=== PATIENT | male | born 1945 | race Caucasian/White ===

== ENCOUNTER 2017-03-01 18:47 | Emergency (ER) | payer MEDICARE, OTHER ==
[2017-03-01] MEDS ORDERED: Albuterol/Ipratropium NEB.SOL* Albuterol 2.5 MG/Ipratropium 0.5 MG 3 ML INH ONE ×2 (18:55→21:31)
[2017-03-01] MEDS ORDERED: cefTRIAXone(*) 1 GM in NS 0.9% 50 ML* 50 ML IVPB ONE (19:17)
[2017-03-01] MEDS ORDERED: Azithromycin IV(*) 500 MG in NS 0.9% 250 ML* 250 ML IVPB ONE (19:18)
--- NOTE | 2017-03-01 19:44 | RAD ---
Indication: Shortness of breath. Single frontal view of the chest performed at 1923 hours was reviewed. Comparison is made with previous exam dated October 10, 2007. Cardiomegaly is noted. There is suggestion of a retrocardiac density which may represent left lower lobe infiltrate. There is poor inspiratory effort. IMPRESSION: SUGGESTION OF LEFT LOWER LOBE INFILTRATE.
[2017-03-01 19:48] LABS: ABS Basophils 0.1 10^3/ul (0-0.2); ABS Eosinophils 0.1 10^3/ul (0-0.6); ABS Lymphocytes 1.4 10^3/ul (1.0-4.8); ABS Monocytes 0.9 10^3/ul (0-0.8); ABS Neutrophils 8.3 10^3/ul (1.5-7.7); ABS Nucleated RBC 0 10^3/ul; Eosinophil % 1.1 % (0-6); Hematocrit 39 % (42-52); Hemoglobin 13.4 g/dl (14.0-18.0); Lymphocyte % 13.3 % (25-47); Mean Corpuscular HGB Conc 34 g/dl (31-36); Mean Corpuscular Hemoglobin 34 pg (27-31); Mean Corpuscular Volume 99 fL (80-94); Mean Platelet Volume 10 um3 (7.4-10.4); Nucleated Red Blood Cells % 0; Platelet Count 158 10^3/ul (150-450); Red Blood Count 3.97 10^6/ul (4.0-5.4); Red Cell Distribution Width 13 % (10.5-15); White Blood Count 10.8 10^3/ul (3.5-10.8)
[2017-03-01 19:57] LABS: INR 1.11 (0.77-1.02)
[2017-03-01 20:02] LABS: EGFR Non-African American 25.8 (>60)
[2017-03-01] MEDS ORDERED: NS 0.9% 1000 ML* 2,000 ML IV ONE (23:02)
--- NOTE | 2017-03-01 23:05 | ED ---
Fede Gonzales Natalie, scribed for Cortes Gonzalez MD on 03/01/17 at 1917 . Shortness of Breath - HPI Summary HPI Summary: The pt is a 72 y/o BIBA to the ED c/o SOB onset for days but worsening today. Per EMS, the patients called the ambulance to bring him s/p falling. His initial O2 saturation was 81% on room air, but EMS brought it up to 95%. His blood sugar is reported as 181, and he is nondiabetic. The pain is aggravated by nothing and is alleviated by nothing. The patient has treated the pain with nothing [employer] DES[employer]. He was drinking wine before coming to the ED. Pt additionally c/o nonproductive cough, edema in bilateral LE, and swollen stomach. Pt denies blood in emesis, fevers, and chills. The pt has hx of peripheral neuropathy. He does not have hx of COPD or emphysema. He visited [facility] this past weekend with results normal for him concerning swollen stomach. - History of Current Complaint Chief Complaint: EDShortnessOfBreath Hx Obtained From: Patient, EMS Onset/Duration: Gradual Onset, Lasting Days - started about a month ago, Still Present, Worse Since - today Timing: Constant Current Severity: Moderate Aggrevating Factors: Nothing Alleviating Factors: Nothing Associated Signs & Symptoms: Cough (Nonproductive), Edema - in bilateral LE, stomach - Allergy/Home Medications Allergies/Adverse Reactions: Allergies Allergy/AdvReac Type Severity Reaction Status Date / Time Doxycycline Allergy Rash Verified 01/01/14 09:51 PMH/Surg Hx/FS Hx/Imm Hx Previously Healthy: No Endocrine/Hematology History: Denies: Hx Diabetes, Hx Thyroid Disease Cardiovascular History: Denies: Hx Hypertension Respiratory History: Denies: Hx Asthma, Hx Chronic Obstructive Pulmonary Disease (COPD) GI History: Denies: Hx Ulcer Musculoskeletal History: Reports: Hx Rheumatoid Arthritis Comment Only: Hx Osteoporosis - ? - Surgical History Surgery Procedure, Year, and Place: tonsillectomy at age 4 Infectious Disease History: No Infectious Disease History: Denies: Hx Clostridium Difficile, Hx Hepatitis, Hx Human Immunodeficiency Virus (HIV), Hx of Known/Suspected MRSA, Hx Shingles, Hx Tuberculosis, Hx Known/ Suspected VRE, Hx Known/Suspected VRSA, History Other Infectious Disease, Traveled Outside the [place] in Last 30 Days - Family History Known Family History: Negative: Cardiac Disease, Hypertension, Diabetes - Social History Alcohol Use: Occasionally Substance Use Type: Reports: None Smoking Status (MU): Never Smoked Tobacco Review of Systems Negative: Fever, Chills Positive: Shortness Of Breath, Cough - nonproductive Negative: Vomiting Positive: Edema - bilateral LE, stomach All Other Systems Reviewed And Are Negative: Yes Physical Exam Triage Information Reviewed: Yes Vital Signs On Initial Exam: Initial Vitals Temp Pulse Resp BP Pulse Ox 98.2 F 103 18 121/74 88 03/01/17 18:48 03/01/17 18:48 03/01/17 18:48 03/01/17 18:48 03/01/17 18:48 Vital Signs Reviewed: Yes Appearance: Positive: Pain Distress - mild respiratory distress Skin: Positive: Warm, Skin Color Reflects Adequate Perfusion, Dry Respiratory/Lung Sounds: Positive: Rhonchi, Wheezes - bilateral Cardiovascular: Positive: Tachycardia Abdomen Description: Positive: Other: - large abd Bowel Sounds: Positive: Present Musculoskeletal: Positive: Normal, Strength/ROM Intact Neurological: Positive: Normal, Sensory/Motor Intact, Alert, Oriented to Person Place, Time Psychiatric: Positive: Affect/Mood Appropriate Diagnostics - Vital Signs Vital Signs Temp Pulse Resp BP Pulse Ox 03/01/17 18:48 98.2 F 103 18 121/74 88 - Laboratory Lab Results: Lab Results 03/01/17 03/01/17 03/01/17 Range/Units 19:32 19:32 19:32 WBC (3.5-10.8) 10^3/ul RBC (4.0-5.4) 10^6/ul Hgb (14.0-18.0) g/dl Hct (42-52) % MCV (80-94) fL MCH (27-31) pg MCHC (31-36) g/dl RDW (10.5-15) % Plt Count (150-450) 10^3/ul MPV (7.4-10.4) um3 Neut % (Auto) (38-83) % Lymph % (Auto) (25-47) % Furn[place] % (Auto) (1-9) % Eos % (Auto) (0-6) % Baso % (Auto) (0-2) % Absolute Neuts (auto) (1.5-7.7) 10^3/ul Absolute Lymphs (auto) (1.0-4.8) 10^3/ul Absolute Monos (auto) (0-0.8) 10^3/ul Absolute Eos (auto) (0-0.6) 10^3/ul Absolute Basos (auto) (0-0.2) 10^3/ul Absolute Nucleated RBC 10^3/ul Nucleated RBC % INR (Anticoag Therapy) 1.11 H (0.77-1.02) APTT 30.2 (26.0-36.3) seconds D-Dimer, Quantitative > 1050 H (Less Than 230) ng/mL Sodium 130 L (133-145) mmol/L Potassium 4.4 (3.5-5.0) mmol/L Chloride 98 L (101-111) mmol/L Carbon Dioxide 20 L (22-32) mmol/L Anion Gap 12 H (2-11) mmol/L BUN 45 H (6-24) mg/dL Creatinine 2.46 H (0.67-1.17) mg/dL Est GFR ( Amer) 33.2 (>60) Est GFR (Non-Af Amer) 25.8 (>60) BUN/Creatinine Ratio 18.3 (8-20) Glucose 122 H (70-100) mg/dL Lactic Acid (0.5-2.0) mmol/L Calcium 8.6 (8.6-10.3) mg/dL Magnesium 2.4 (1.9-2.7) mg/dL Total Bilirubin 1.50 H (0.2-1.0) mg/dL AST 56 H (13-39) U/L ALT 14 (7-52) U/L Alkaline Phosphatase 192 H (34-104) U/L Ammonia 47 (16-53) mol/L Total Creatine Kinase 95 (10-223) U/L CK-MB (CK-2) 4.8 (0.6-6.3) ng/mL Troponin I 0.01 (<0.04) ng/mL C-Reactive Protein 54.49 H (< 5.00) mg/L B-Natriuretic Peptide 59 ( - 100) pg/mL Total Protein 7.0 (6.4-8.9) g/dL Albumin 2.9 L (3.2-5.2) g/dL Globulin 4.1 H (2-4) g/dL Albumin/Globulin Ratio 0.7 L (1-3) Lipase 49 (11.0-82.0) U/L TSH 1.51 (0.34-5.60) mcIU/mL Salicylates < 2.50 (<30) mg/dL Acetaminophen < 15 mcg/mL Serum Alcohol 31 H (<10) mg/dL 03/01/17 03/01/17 Range/Units 19:32 19:32 WBC 10.8 (3.5-10.8) 10^3/ul RBC 3.97 L (4.0-5.4) 10^6/ul Hgb 13.4 L (14.0-18.0) g/dl Hct 39 L (42-52) % MCV 99 H (80-94) fL MCH 34 H (27-31) pg MCHC 34 (31-36) g/dl RDW 13 (10.5-15) % Plt Count 158 (150-450) 10^3/ul MPV 10 (7.4-10.4) um3 Neut % (Auto) 76.5 (38-83) % Lymph % (Auto) 13.3 L (25-47) % Furn[place] % (Auto) 8.0 (1-9) % Eos % (Auto) 1.1 (0-6) % Baso % (Auto) 1.1 (0-2) % Absolute Neuts (auto) 8.3 H (1.5-7.7) 10^3/ul Absolute Lymphs (auto) 1.4 (1.0-4.8) 10^3/ul Absolute Monos (auto) 0.9 H (0-0.8) 10^3/ul Absolute Eos (auto) 0.1 (0-0.6) 10^3/ul Absolute Basos (auto) 0.1 (0-0.2) 10^3/ul Absolute Nucleated RBC 0 10^3/ul Nucleated RBC % 0 INR (Anticoag Therapy) (0.77-1.02) APTT (26.0-36.3) seconds D-Dimer, Quantitative (Less Than 230) ng/mL Sodium (133-145) mmol/L Potassium (3.5-5.0) mmol/L Chloride (101-111) mmol/L Carbon Dioxide (22-32) mmol/L Anion Gap (2-11) mmol/L BUN (6-24) mg/dL Creatinine (0.67-1.17) mg/dL Est GFR ( Amer) (>60) Est GFR (Non-Af Amer) (>60) BUN/Creatinine Ratio (8-20) Glucose (70-100) mg/dL Lactic Acid 3.4 H* (0.5-2.0) mmol/L Calcium (8.6-10.3) mg/dL Magnesium (1.9-2.7) mg/dL Total Bilirubin (0.2-1.0) mg/dL AST (13-39) U/L ALT (7-52) U/L Alkaline Phosphatase (34-104) U/L Ammonia (16-53) mol/L Total Creatine Kinase (10-223) U/L CK-MB (CK-2) (0.6-6.3) ng/mL Troponin I (<0.04) ng/mL C-Reactive Protein (< 5.00) mg/L B-Natriuretic Peptide ( - 100) pg/mL Total Protein (6.4-8.9) g/dL Albumin (3.2-5.2) g/dL Globulin (2-4) g/dL Albumin/Globulin Ratio (1-3) Lipase (11.0-82.0) U/L TSH (0.34-5.60) mcIU/mL Salicylates (<30) mg/dL Acetaminophen mcg/mL Serum Alcohol (<10) mg/dL Result Diagrams: 03/01/17 19:32 03/01/17 19:32 Lab Statement: Any lab studies that have been ordered have been reviewed, and results considered in the medical decision making process. - Radiology CXR Xray Interpretation: Positive (See Comments) - Suggestion of left lower lobe infiltrate. ED physician has reviewed this report. - EKG 19:07 Cardiac Rate: NL EKG Rhythm: Sinus Rhythm - 94 BPM EKG Interpretation: Diffuse low voltage. No ectopy. Course/Dx - Course Course Of Treatment: BP is normal. Allergies noted. Medicatiosn reviewed. NS BOLUS LIMITED TO 2L NS DUE TO ASCITIES. HOSPITALIST CONSULTED FOR ADMISSION; WITH THE PATIENT'S NEW ONSET ASCITES, WITHOUT GI COVERAGE AT [facility] WILL NEED TO TRANSFER TO A FACILITY WITH GI COVERAGE. TRANSFER TO [facility], DR OSBORN ACCEPTING. - Diagnoses Provider Diagnoses: Pneumonia, Hypoxia, Ascites, Renal insufficiency - Critical Care Time Critical Care Time: 30-74 min Discharge - Discharge Plan Condition: Stable Disposition: TRANS HIGHER LVL OF CARE FAC Referrals: Lawson Sutherland MD [Primary Care Provider] - The documentation as recorded by the Fede beckwith Natalie accurately reflects the service I personally performed and the decisions made by me, Cortes Gonzalez MD.
[2017-03-01] MEDS ORDERED: Morphine INJ* 4 MG/ML 1 ML CARPUJECT IV ONE (23:55)
[2017-03-01] MEDS ORDERED: Ondansetron INJ* 2 MG/ML VIAL IV ONE (23:55)
[2017-03-01] MEDS ORDERED: Ondansetron INJ* 2 MG/ML VIAL ONE (23:56)
[2017-03-01] MEDS ORDERED: Morphine INJ* 2 MG/ML 1 ML SYRINGE (TWO MG - NEW SYRINGE VERSION) ONE (23:56)
[2017-03-01] MEDS ORDERED: Morphine INJ* 2 MG/ML 1 ML SYRINGE (TWO MG - NEW SYRINGE VERSION) IV ONE (23:58)
[2017-03-02 00:10] VITALS: BP 117/69
--- NOTE | 2017-03-02 04:52 | CONS ---
CC: Dr. Sutherland; Dr. Gonzalez * CONSULTATION REPORT: DATE OF CONSULT: 03/01/17 PRIMARY CARE PROVIDER: Dr. Sutherland. REQUESTING PHYSICIAN FOR CONSULT: Dr. Gonzalez. ATTENDING PHYSICIAN WHILE IN THE HOSPITAL: Rodney Faria MD (report dictated by Jimy Abernathy NP) REASON FOR MEDICAL CONSULT: Evaluation for admission. HISTORY OF PRESENT ILLNESS: Mr. rAt is a 72-year-old male patient. He says he has a history of AFib, diverticulosis, and a history of neuropathy who comes into the ER today. He says he has had a cough for the last month that has just not been getting any better. It is a nonproductive, now getting productive. He says he has been having difficulty with taking a deep breath. He has been more short of breath and he notices the abdomen has been getting much bigger and more distended and actually becoming painful. He says he denied any nausea or vomiting. He says he has been having more lower leg swelling and edema and he has not had any fevers or chills, but he was concerned today. Actually, his had fallen, they called [facility] for his , but they were concerned, when [place] got there, they evaluated the patient for his cough and it was noted that he was hypoxic and at that point, he was brought into the hospital. He does state that he was hypoxic and seen in [place] 2 days ago and at that point, it was noted that his O2 saturations were 90. He was concerned, came in today, and was evaluated and he was found to have pneumonia, to be in acute renal failure and we were asked to evaluate for admission. PAST MEDICAL HISTORY: According to him significant for AFib, diverticulosis and history of neuropathy. PAST SURGICAL HISTORY: He has had tonsillectomy. He has had left knee arthroscopy. He has had colonoscopy. HOME MEDICATIONS: Include according to the old list: 1. Ambien 5 mg at bedtime. 2. Effexor 37.5 mg daily. 3. Triamcinolone cream one application topically b.i.d. 4. Lyrica 25 mg p.o. b.i.d. 5. Also, he does appear to have been prescribed diltiazem 180 mg tablets p.o. daily and he recently looks like was prescribed 2 days ago Augmentin. ALLERGIES TO MEDICATIONS: Include DOXYCYCLINE. FAMILY HISTORY: Father had a history of colon cancer. Mother had a history of lymphoma. SOCIAL HISTORY: He does not smoke. He does drink on a daily basis. He says he is drinking about half a bottle of wine a day. He is . His surrogate decision maker is his . REVIEW OF SYSTEMS: There is no documented fever. He does admit to having increasing swelling. He denies having any double vision. No ear discharge. There was some rhinorrhea. There was no sore throat. There was no thyroid enlargement. Denied having any chest pain. He does admit to having some shortness of breath. He does admit to having some abdominal pain, but no nausea , no vomiting. There was no frequency, no seizure, no loss of consciousness, no pruritus, and no skin ulcerations. Review of 14 systems completed, all others negative. PHYSICAL EXAM: Vital Signs: Blood pressure 121/74 with a pulse of 103, respirations were 18, his O2 sat was 88% on room air and is now 93% on 4 L, his temperature was 98.2. General: At this time, Mr. Art is a 72-year-old male patient, appears to be older than stated age. He is sitting in the ER stretcher. He does not appear to be in any acute distress. HEENT: Head is atraumatic, normocephalic. Eyes: EOMs intact. Sclerae anicteric. Neck: Supple. Throat: Oral mucosa appears to be dry. No oropharyngeal erythema. Heart: Sounds S1, S2. Regular rate and rhythm. No murmurs, rubs or gallops. Lungs: He had wheeze throughout, crackles on the left side, and equal diaphragmatic expansion. Abdomen: Protruded, distended. On the left lower quadrant, there was redness and warmth. He was tender as well and he had dull percussion as well. Extremities: He had +2 pitting edema bilaterally. He has 5/5 strength. Neurologic: He is awake, alert and oriented x3. No gross focal deficits. His skin was intact. DIAGNOSTIC STUDIES/LAB DATA: WBC 10.8, RBC 3.97, hemoglobin 13.4, hematocrit 39 , platelet count of 158, his INR was 1.11, PTT of 30.2, D-dimer of greater than 1050. Sodium 130, potassium 4.0, chloride 98, bicarb 20, BUN 45, creatinine 2.46 , glucose 122, lactic 3.4, calcium 8.6, mag was 2.4, total bilirubin 1.5, AST 56 , ALT 14, alk phos was 192, ammonia was 47, CK 95, CK-MB 4.8, troponin 0.01, CRP was 54, BNP 59, albumin of 2.9, TSH pending, lipase was 49. His toxicology is pending. He had a chest x-ray obtained today. Impression: My review it looks like an expiratory film, but there was possibility of what appears to be left lower lobe infiltrate. EKG today shows sinus rhythm with a rate of 94. No ST elevation or T-wave inversion. Old medical records were reviewed. ASSESSMENT AND PLAN: Mr. Art is a nice 72-year-old male patient with the history of ETOH abuse, in addition of this atrial fibrillation, diverticulitis, neuropathy, coming into the ER today with complaints of shortness of breath and wheezing, on evaluation was found to have pneumonia. We were asked to evaluate for admission. My recommendations at this point are: 1. The patient does appear to have massive ascites. I am concerned that he could have small bowel obstruction because of the tenderness and redness in the abdomen. He also does appear to have liver failure in early stage. His MELD score is right around 23. His INR is up little bit, his albumin as well. He has massive ascites. He does appear to have an elevated bili and slightly elevated AST and ALT. He says he has never formally been diagnosed with cirrhotic liver disease. I am concerned with his history of alcohol and he may have this and with his underlying pneumonia, he appears to have early signs of decompensation and I am concerned that he may go into hepatorenal syndrome with his creatinine being up, he does appear to be dehydrated. We have unfortunately no GI coverage and I feel the patient should be transferred to a center where there is GI coverage to help further evaluation and workup of this. I do recommend putting him on antibiotics Rocephin and azithromycin and treat pneumonia. Rocephin will treat SBP and I would recommend an ultrasound of the abdomen. The patient should have a GI consult and because there is no GI coverage, I recommend transfer and I discussed with Dr. Faria, he was in agreement at this point. 2. Atrial fibrillation. I continued his meds. 3. Diverticulosis, not an active issue. 4. Neuropathy. Continue his Lyrica. I did touch base with Dr. Gonzalez on recommendations for transfer of this patient to a tertiary care center where GI was available to help with further management of this patient. As I am concerned with the underlying pneumonia, he could go into full blown decompensated liver failure, which unfortunately we would not have GI backup. TIME SPENT: Time spent on the consult was approximately 60 minutes, greater than half the time was spent [id number] with the patient, obtaining history and physical, the other half time was spent going over the plan of care with the patient. I did discuss the plan of care with my attending Dr. Faria, he is in agreement. JIMY ABERNATHY, JOHNNIE [id number]/CPS #: [id number] JARAD
== END 2017-03-02 00:09 | disposition short-term general hospital (02) ==
LOC: ED 18:47
DX: J18.9 Pneumonia, unspecified organism (principal); R09.02 Hypoxemia; R18.8 Other ascites; N28.9 Disorder of kidney and ureter, unspecified
CPT/HCPCS: 36415; 71010; 80053; 80320; 80329; 82140; 82550; 82553; 83605; 83690; 83735; 83880; 84443; 84484; 85025; 85379; 85610; 85730; 86140; 87040; 93005; 94640; 96365; 96366; 96375; 99284; A9270-GY; G0480; J0456; J0696; J2270; J2405

== ENCOUNTER 2017-03-20 13:28 | Emergency (ER) | payer MEDICARE ==
[2017-03-20 15:10] LABS: INR 1.17 (0.77-1.02)
[2017-03-20 15:17] LABS: ABS Basophils 0.1 10^3/ul (0-0.2); ABS Eosinophils 0.7 10^3/ul (0-0.6); ABS Lymphocytes 1.9 10^3/ul (1.0-4.8); ABS Monocytes 0.9 10^3/ul (0-0.8); ABS Neutrophils 6.4 10^3/ul (1.5-7.7); ABS Nucleated RBC 0 10^3/ul; EGFR Non-African American 30.9 (>60); Hematocrit 37 % (42-52); Hemoglobin 12.6 g/dl (14.0-18.0); Lymphocyte % 18.8 % (25-47); Mean Corpuscular HGB Conc 34 g/dl (31-36); Mean Corpuscular Hemoglobin 33 pg (27-31); Mean Corpuscular Volume 96 fL (80-94); Mean Platelet Volume 9 um3 (7.4-10.4); Nucleated Red Blood Cells % 0; Platelet Count 253 10^3/ul (150-450); Red Blood Count 3.88 10^6/ul (4.0-5.4); Red Cell Distribution Width 13 % (10.5-15)
[2017-03-20 17:11] LABS: Urine Appearance Cloudy; Urine Blood 3+ (Negative); Urine Color Amber; Urine Ketones Negative (Negative); Urine Protein 1+(30 mg/dL) (Negative); Urine Specific Gravity 1.012 (1.010-1.030); Urine Urobilinogen Positive (Negative)
[2017-03-20 17:40] VITALS: BP 109/61
--- NOTE | 2017-03-21 10:07 | ED ---
Bruce Gonzales Angela, scribed for Dominic Choudhary MD on 03/20/17 at 1351 . Abdominal Pain/Male - HPI Summary HPI Summary: This pt is a 72 y/o male presenting [place] [facility] [place] from [facility] c/o abdominal distension and need for paracentesis. Pt reports that he is scheduled for this at [facility] tomorrow but wanted to come to [facility] [place] as it is much closer and wants to avoid the ambulance fee. He states "it doesn't really hurt" and has baseline pain from ascites. Pt just moved into [facility] on March 12, but before this he was living at home. Pt had his last tap on March 07, 2017. - History of Current Complaint Chief Complaint: EDGeneral Stated Complaint: ABD PAIN Time Seen by Provider: 03/20/17 13:36 Hx Obtained From: Patient Onset/Duration: Lasting Days, Still Present Timing: Lasting Days Severity Currently: Moderate Pain Intensity: 6 Pain Scale Used: 0-10 Numeric Location: Diffuse Radiates: No Aggravating Factor(s): Nothing Alleviating Factor(s): Nothing Associated Signs And Symptoms: Positive: Other - abdominal distension - Allergies/Home Medications Allergies/Adverse Reactions: Allergies Allergy/AdvReac Type Severity Reaction Status Date / Time Doxycycline Allergy Rash Verified 03/20/17 13:43 PMH/Surg Hx/FS Hx/Imm Hx Endocrine/Hematology History: Denies: Hx Diabetes, Hx Thyroid Disease Cardiovascular History: Reports: Hx Atrial Fibrillation, Hx Hypertension Respiratory History: Reports: Other Respiratory Problems/Disorders - Supraglottitis Denies: Hx Asthma, Hx Chronic Obstructive Pulmonary Disease (COPD) GI History: Reports: Hx Diverticulosis Denies: Hx Ulcer Musculoskeletal History: Reports: Hx Rheumatoid Arthritis Comment Only: Hx Osteoporosis - ? Neurological History: Reports: Hx Peripheral Neuropathy - Surgical History Surgery Procedure, Year, and Place: tonsillectomy at age 4 Infectious Disease History: No Infectious Disease History: Denies: Hx Clostridium Difficile, Hx Hepatitis, Hx Human Immunodeficiency Virus (HIV), Hx of Known/Suspected MRSA, Hx Shingles, Hx Tuberculosis, Hx Known/ Suspected VRE, Hx Known/Suspected VRSA, History Other Infectious Disease, Traveled Outside the [place] in Last 30 Days - Family History Known Family History: Negative: Cardiac Disease, Hypertension, Diabetes - Social History Alcohol Use: Occasionally Substance Use Type: Reports: None Smoking Status (MU): Never Smoked Tobacco Review of Systems Negative: Fever, Chills ENT: Negative Cardiovascular: Negative Gastrointestinal: Other - abdominal distension Positive: Abdominal Pain Musculoskeletal: Negative Skin: Negative Neurological: Negative All Other Systems Reviewed And Are Negative: Yes Physical Exam - Summary Physical Exam Summary: Appearance: The patient is well-nourished in no acute distress and in no acute pain. Skin: The skin is warm and dry and skin color reflects adequate perfusion. HEENT: The head is normocephalic and atraumatic. The pupils are equal and reactive. The conjunctivae are clear and without drainage. Scleral icterus. Nares are patent and without drainage. Mouth reveals moist mucous membranes and the throat is without erythema and exudate. The external ears are intact. The ear canals are patent and without drainage. The tympanic membranes are intact. Neck: the neck is supple with full range of motion and non-tender. There are no carotid bruits. There is no neck vein distension. Respiratory: Chest is non-tender. Lungs are clear to auscultation and breath sounds are symmetrical and equal. Cardiovascular: Heart is regular rate and rhythm. There is no murmur or rub auscultated. There is no peripheral edema and pulses are symmetrical and equal. Abdomen: The abdomen is soft and non-tender. There is abdominal distension. There are normal bowel sounds heard in all four quadrants and there is no organomegaly palpated. Musculoskeletal: There is no back tenderness noted. Extremities are non-tender with full range of motion. There is good capillary refill. There is no peripheral edema or calf tenderness elicited. Neurological: Patient is alert and oriented to person, place and time. The patient has symmetrical motor strength in all four extremities. Cranial nerves are grossly intact. Deep tendon reflexes are symmetrical and equal in all four extremities. Psychiatric: The patient has an appropriate affect and does not exhibit any anxiety or depression. Triage Information Reviewed: Yes Vital Signs On Initial Exam: Initial Vitals Temp Pulse Resp BP Pulse Ox 99.3 F 83 14 107/62 91 03/20/17 13:36 03/20/17 13:36 03/20/17 13:36 03/20/17 13:36 03/20/17 13:36 Vital Signs Reviewed: Yes - [place] Coma Scale Coma Scale Total: 15 Diagnostics - Vital Signs Vital Signs Temp Pulse Resp BP Pulse Ox 03/20/17 13:40 85 15 90 03/20/17 13:37 107/62 03/20/17 13:36 99.3 F 83 14 107/62 91 - Laboratory Lab Results: Lab Results 03/20/17 03/20/17 03/20/17 Range/Units 14:52 14:52 14:52 WBC 10.0 (3.5-10.8) 10^3/ul RBC 3.88 L (4.0-5.4) 10^6/ul Hgb 12.6 L (14.0-18.0) g/dl Hct 37 L (42-52) % MCV 96 H (80-94) fL MCH 33 H (27-31) pg MCHC 34 (31-36) g/dl RDW 13 (10.5-15) % Plt Count 253 (150-450) 10^3/ul MPV 9 (7.4-10.4) um3 Neut % (Auto) 64.2 (38-83) % Lymph % (Auto) 18.8 L (25-47) % Falls % (Auto) 9.2 H (1-9) % Eos % (Auto) 7.0 H (0-6) % Baso % (Auto) 0.8 (0-2) % Absolute Neuts (auto) 6.4 (1.5-7.7) 10^3/ul Absolute Lymphs (auto) 1.9 (1.0-4.8) 10^3/ul Absolute Monos (auto) 0.9 H (0-0.8) 10^3/ul Absolute Eos (auto) 0.7 H (0-0.6) 10^3/ul Absolute Basos (auto) 0.1 (0-0.2) 10^3/ul Absolute Nucleated RBC 0 10^3/ul Nucleated RBC % 0 INR (Anticoag Therapy) (0.77-1.02) Sodium 123 L (133-145) mmol/L Potassium 4.0 (3.5-5.0) mmol/L Chloride 90 L (101-111) mmol/L Carbon Dioxide 25 (22-32) mmol/L Anion Gap 8 (2-11) mmol/L BUN 26 H (6-24) mg/dL Creatinine 2.11 H (0.67-1.17) mg/dL Est GFR ( Amer) 39.7 (>60) Est GFR (Non-Af Amer) 30.9 (>60) BUN/Creatinine Ratio 12.3 (8-20) Glucose 128 H (70-100) mg/dL Lactic Acid (0.5-2.0) mmol/L Calcium 8.6 (8.6-10.3) mg/dL Magnesium 2.1 (1.9-2.7) mg/dL Total Bilirubin 1.50 H (0.2-1.0) mg/dL AST 61 H (13-39) U/L ALT 13 (7-52) U/L Alkaline Phosphatase 189 H (34-104) U/L Ammonia 67 H (16-53) mol/L C-Reactive Protein 26.20 H (< 5.00) mg/L Total Protein 6.4 (6.4-8.9) g/dL Albumin 2.7 L (3.2-5.2) g/dL Globulin 3.7 (2-4) g/dL Albumin/Globulin Ratio 0.7 L (1-3) Lipase 27 (11.0-82.0) U/L Urine Color Urine Appearance Urine pH (5-9) Ur Specific Horatio (1.010-1.030) Urine Protein (Negative) Urine Ketones (Negative) Urine Blood (Negative) Urine Nitrate (Negative) Urine Bilirubin (Negative) Urine Urobilinogen (Negative) Ur Leukocyte Esterase (Negative) Urine WBC (Auto) (Absent) Urine RBC (Auto) (Absent) Ur Squamous Epith Cells (Absent) Amorphous Crystals (Absent) Urine Bacteria (Absent) Hyaline Casts (Absent) Urine Glucose (Negative) 03/20/17 03/20/17 03/20/17 Range/Units 14:52 14:52 16:30 WBC (3.5-10.8) 10^3/ul RBC (4.0-5.4) 10^6/ul Hgb (14.0-18.0) g/dl Hct (42-52) % MCV (80-94) fL MCH (27-31) pg MCHC (31-36) g/dl RDW (10.5-15) % Plt Count (150-450) 10^3/ul MPV (7.4-10.4) um3 Neut % (Auto) (38-83) % Lymph % (Auto) (25-47) % Falls % (Auto) (1-9) % Eos % (Auto) (0-6) % Baso % (Auto) (0-2) % Absolute Neuts (auto) (1.5-7.7) 10^3/ul Absolute Lymphs (auto) (1.0-4.8) 10^3/ul Absolute Monos (auto) (0-0.8) 10^3/ul Absolute Eos (auto) (0-0.6) 10^3/ul Absolute Basos (auto) (0-0.2) 10^3/ul Absolute Nucleated RBC 10^3/ul Nucleated RBC % INR (Anticoag Therapy) 1.17 H (0.77-1.02) Sodium (133-145) mmol/L Potassium (3.5-5.0) mmol/L Chloride (101-111) mmol/L Carbon Dioxide (22-32) mmol/L Anion Gap (2-11) mmol/L BUN (6-24) mg/dL Creatinine (0.67-1.17) mg/dL Est GFR ( Amer) (>60) Est GFR (Non-Af Amer) (>60) BUN/Creatinine Ratio (8-20) Glucose (70-100) mg/dL Lactic Acid 1.8 (0.5-2.0) mmol/L Calcium (8.6-10.3) mg/dL Magnesium (1.9-2.7) mg/dL Total Bilirubin (0.2-1.0) mg/dL AST (13-39) U/L ALT (7-52) U/L Alkaline Phosphatase (34-104) U/L Ammonia (16-53) mol/L C-Reactive Protein (< 5.00) mg/L Total Protein (6.4-8.9) g/dL Albumin (3.2-5.2) g/dL Globulin (2-4) g/dL Albumin/Globulin Ratio (1-3) Lipase (11.0-82.0) U/L Urine Color Alee Urine Appearance Cloudy Urine pH 5.0 (5-9) Ur Specific Horatio 1.012 (1.010-1.030) Urine Protein 1+(30 mg/dl) H (Negative) Urine Ketones Negative (Negative) Urine Blood 3+ H (Negative) Urine Nitrate Negative (Negative) Urine Bilirubin Negative (Negative) Urine Urobilinogen Positive H (Negative) Ur Leukocyte Esterase Trace H (Negative) Urine WBC (Auto) 2+(11-20/hpf) H (Absent) Urine RBC (Auto) 3+(>10/hpf) H (Absent) Ur Squamous Epith Cells Present H (Absent) Amorphous Crystals Present H (Absent) Urine Bacteria Absent (Absent) Hyaline Casts Present H (Absent) Urine Glucose Negative (Negative) Result Diagrams: 03/20/17 14:52 03/20/17 14:52 Lab Statement: Any lab studies that have been ordered have been reviewed, and results considered in the medical decision making process. Abdominal Pain Fem Course/Dx - Course Course Of Treatment: Mr Kaelyn cm been getting a paracentesis about once a week at [facility] for cirrhotic ascites. He lives a [facility] and can't afford to go to [place] so he missed his last appointment and doesn't want to go tomorrow but has recollected a lot of fluid. Dr. Mondragon came and took off 9 liters of fluid and I arranged for the hospitalist service which are now managing care at [facility] to get him set up for paracenteses at the [place]. - Diagnoses Provider Diagnoses: Ascites - Provider Notifications Discussed Care Of Patient With: Freddy Mondragon Time Discussed With Above Provider: 15:42 Instructed by Provider To: Other - I discussed pt care with Dr. Mondragon, surgeon , who will come see the pt in the ED. Discharge - Discharge Plan Condition: Stable Disposition: HOME Patient Education Materials: Ascites (ED) Referrals: Lawson Sutherland MD [Medical Doctor] - Additional Instructions: Please contact the facility physician for future paracentesis at [facility]. RETURN TO THE ED FOR ANY WORSENING SYMPTOMS. The documentation as recorded by the Bruce beckwith Angela accurately reflects the service I personally performed and the decisions made by me, Dominic Choudhary MD.
--- NOTE | 2017-03-21 14:30 | PRO ---
CC: Dr. Freddy Mondragon; [facility] DATE OF PROCEDURE: 03/20/17 HISTORY: The patient is a 72-year-old male who has known cirrhosis and recurrent ascites. He was getting his abdomen drained down at [place] of about 4 to 5 L every 4 to 7 days. He is now been about 9 or 10 days and he is feeling very bloated. He has since been transferred to [facility] and they have sent him to the emergency room with increasing abdominal distention, pressure, and a little bit of dyspnea. PROCEDURE PERFORMED: On examination, he has markedly distended abdomen. Bedside ultrasound was performed and he had a fair amount of ascites readily visible. A place in the right upper quadrant was chosen where there was no bowel nearby. The area was then prepped with antiseptic and draped in a sterile fashion. Local infiltrative anesthesia was administered and a skinny needle used to identify clear paracentesis fluid. The paracentesis catheter was put in place and hooked to a suction bottle. A total of almost 9000 mL was forthcoming when it quit draining, the catheter was removed, bandage was placed. He tolerated this well. I discussed with the emergency room physician who [facility]. [id number]/[facility] #: [id number] MTDYakov
== END 2017-03-20 17:29 | disposition home or self-care (01) ==
LOC: ED 13:28
DX: R18.8 Other ascites (principal); R14.0 Abdominal distension (gaseous); R10.9 Unspecified abdominal pain
CPT/HCPCS: 36415; 49082; 80053; 81003; 81015; 82140; 83605; 83690; 83735; 85025; 85610; 86140; 87086; 99284

== ENCOUNTER 2017-03-27 10:45 | Observation (INO) | payer MEDICARE ==
[2017-03-27 11:49] LABS: Hematocrit 35 % (42-52); Mean Corpuscular HGB Conc 35 g/dl (31-36); Mean Corpuscular Hemoglobin 33 pg (27-31); Mean Corpuscular Volume 95 fL (80-94); Mean Platelet Volume 9 um3 (7.4-10.4); Platelet Count 218 10^3/ul (150-450); Red Blood Count 3.65 10^6/ul (4.0-5.4); Red Cell Distribution Width 13 % (10.5-15); White Blood Count 9.4 10^3/ul (3.5-10.8)
[2017-03-27 12:05] LABS: EGFR Non-African American 20.9 (>60)
--- NOTE | 2017-03-27 12:43 | RAD ---
INDICATION: Constipation COMPARISON: January 29, 2011 TECHNIQUE: A single view of the abdomen is submitted. FINDINGS: Bones: There are no acute bony findings. Soft tissues: The soft tissues appear normal. The psoas margins are sharp. Bowel gas pattern: There is moderate stool Calcifications: There are no abnormal calcifications. Other: None IMPRESSION: MODERATE RETAINED STOOL.
[2017-03-27 12:45] LABS: INR 1.1 (0.77-1.02)
[2017-03-27] MEDS ORDERED: NS 0.9% 1000 ML* 1,000 ML IV ONE (14:47)
[2017-03-27 15:01] LABS: Urine Appearance Cloudy; Urine Blood 2+ (Negative); Urine Color Yellow; Urine Ketones Negative (Negative); Urine Protein Negative (Negative); Urine Specific Gravity 1.009 (1.010-1.030); Urine Urobilinogen Negative (Negative)
--- NOTE | 2017-03-27 15:11 | RAD ---
INDICATION: Altered mental status COMPARISON: None TECHNIQUE: Noncontrast axial source images were acquired from the skull base to the vertex. FINDINGS: Ventricles/sulci: The ventricles and cisterns are normal in size and configuration for age. There are mild age-related involutional changes. Brain parenchyma: There is no acute appearing focal parenchymal finding, evidence of intracranial mass, or intracranial mass effect. There is mildly decreased attenuation in the periventricular white matter consistent with mild chronic ischemic change. Intracranial hemorrhage:None. Extra-axial spaces: There are no abnormal extra axial fluid collections or evidence of extra-axial mass. Calvarium: There is no calvarial fracture or other calvarial abnormality. Scalp: There is no evidence of scalp or extracalvarial soft tissue abnormality. Paranasal sinuses/mastoid: The paranasal sinuses and mastoid air cells are clear. Other: None. IMPRESSION: No acute intracranial findings.
--- NOTE | 2017-03-27 16:15 | ADMNOTE ---
Subjective Date of Service: 03/27/17 Interval History: . ADMISSION HISTORY AND PHYSICAL EXAM: Allergies Allergy/AdvReac Type Severity Reaction Status Date / Time Doxycycline Allergy Rash Verified 03/27/17 10:53 Home Medications Medication Instructions Recorded Confirmed Type Pregabalin CAP(*) [Lyrica CAP(*)] 100 mg PO QID MDD 400mg 12/18/13 03/27/17 History Zolpidem TAB* [Ambien TAB*] 10 mg PO BEDTIME PRN MDD 10 mg 11/20/15 03/27/17 History Aspirin EC Low Dose* [Ecotrin EC 81 mg PO DAILY 03/27/17 03/27/17 History Low Dose 81 MG*] Benzonatate CAP* [Tessalon 100 MG 100 mg PO TID PRN 03/27/17 03/27/17 History CAP*] Diltiazem CD CAP* [Cardizem CD 180 mg PO DAILY 03/27/17 03/27/17 History CAP*] Furosemide TAB* [Lasix TAB*] 40 mg PO DAILY 03/27/17 03/27/17 History GuaiFENesin DM sugar free* 5 ml PO Q4HR PRN 03/27/17 03/27/17 History [Robitussin DM sugar free*] Lactic Acid CR 12% (NF) 12 % TOPICAL DAILY 03/27/17 03/27/17 History [Lac-Hydrin 12% (NF)] Lactulose* 30 ml PO TID 03/27/17 03/27/17 History Lidocaine PATCH 5%* [Lidoderm 5% 1 patch TRANSDERM QAM 03/27/17 03/27/17 History Patch*] Multivitamins/Minerals TAB* 1 tab PO DAILY 03/27/17 03/27/17 History [Theragran/minerals TAB*] Pantoprazole TAB (NF) [Protonix 40 mg PO QAM 03/27/17 03/27/17 History TAB (NF)] Spironolactone TAB* [Aldactone 50 mg PO BID 03/27/17 03/27/17 History TAB*] Sulfamethox/Trimethoprim DS* 1 tab PO DAILY 03/27/17 03/27/17 History [Bactrim DS 800/160 TAB*] Vitamin B Complex TAB* [Complex 1 tab PO DAILY 03/27/17 03/27/17 History B-100*] oxyCODONE TAB* [Roxycodone TAB 5 5 mg PO Q4H PRN MDD 30 mg 03/27/17 03/27/17 History mg*] HPI The patient does not know why he was sent to the ED. He offers no c/o. His short-term memory is impaired. He states he received about 4 paracentesis during his recent staty at [facility]. I spoke to his nurse at [facility]. He had a paracentesis there, removing about 9 L about a week ago. The staff at [facility] received a phone call today from the [facility] stating that the patient's labs from the day before were abnormal and they should send him to the ED. The staff did not detect any significant change in the patient's clinical condition. Family History: Findings - Father had colon ca, mother had lymphoma Social History: Findings - Residing at [facility] last 2 weeks. His is his SDM. Heavy alcohol use until 03/01/17. No tobacco use. Past Medical History: Findings - Atria fib, diverticulosis, neuropathy, alcoholic cirrhosis, tonsillectomy, L knee arthroscopy. Review of Systems - Measurements Intake and Output: Intake and Output Last 24 Hours 03/25/17 03/26/17 03/27/17 03/28/17 06:59 06:59 06:59 06:59 Weight 219 lb - Review of Systems General Comments: The patient's memory is too poor to be confident in his answers to a ROS. Objective Vital Signs - 8 hr 03/27/17 03/27/17 03/27/17 10:53 11:23 11:30 Temperature 96.4 F Pulse Rate 77 74 Respiratory 20 12 Rate Blood Pressure 116/61 98/54 86/52 (mmHg) O2 Sat by Pulse 94 93 Oximetry 03/27/17 03/27/17 03/27/17 11:37 12:06 12:56 Temperature Pulse Rate 75 72 Respiratory 14 17 15 Rate Blood Pressure 89/57 89/54 (mmHg) O2 Sat by Pulse 93 93 Oximetry 03/27/17 03/27/17 03/27/17 13:00 13:30 14:00 Temperature Pulse Rate 72 72 Respiratory 15 16 17 Rate Blood Pressure 95/53 90/60 98/66 (mmHg) O2 Sat by Pulse 90 91 Oximetry 03/27/17 03/27/1703/27/18 14:30 14:55 15:05 Temperature Pulse Rate 73 74 Respiratory 15 16 Rate Blood Pressure 98/57 105/76 (mmHg) O2 Sat by Pulse 94 92 Oximetry 03/27/17 15:08 Temperature Pulse Rate Respiratory 16 Rate Blood Pressure (mmHg) O2 Sat by Pulse Oximetry Oxygen Devices in Use Now: None Appearance: Alert, partly up on ED stretcher. Passive, neutral affect. Looks comfortable. Eyes: No Scleral Icterus Respiratory: Symmetrical Chest Expansion and Respiratory Effort, Clear to Auscultation, Clear to Percussion Cardiovascular: NL Sounds; No Murmurs; No JVD, RRR, - - 1+ edema BL Skin: No Rash or Ulcers, No Nodules or Sclerosis, - Neurological: NL Sensation - He can state the present month, name of his SNF, his age. No tremor. Result Diagrams: 03/27/17 11:40 03/27/17 11:40 Assess/Plan/Problems-Billing Assessment: - Patient Problems (1) Alcoholic cirrhosis Current Visit: Yes Status: Acute Code(s): K70.30 - ALCOHOLIC CIRRHOSIS OF LIVER WITHOUT ASCITES SNOMED Code(s): 704507071 Comment: Continue lactulose. Pt seems to be saying he sometimes refused it, but did not c/o diarrhea. 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 I have reduced or eliminated some MANAGER [employer] sedating medications that he may not be benefiting from. (3) GHADA (acute kidney injury) Current Visit: Yes Status: Acute Code(s): N17.9 - ACUTE KIDNEY FAILURE, UNSPECIFIED SNOMED Code(s): 01788290 Comment: Acut on chronic kidney disease. Likely related to large-volume paracenteses. He will get 1 L NSS in ED then NSS at 50 ml/hr. BMP 03/28. (4) Hyponatremia Current Visit: Yes Status: Acute Code(s): E87.1 - HYPO-OSMOLALITY AND HYPONATREMIA SNOMED Code(s): 04292407 Comment: Likely related to volume contraction. IV NSS as above, plus fluid restriction. BMP 03/28.
[2017-03-27] MEDS ORDERED: GuaiFENesin DM sugar free* 5 ML UDC PO PRN (16:27)
[2017-03-27] MEDS ORDERED: NS 0.9% 500 ML* 500 ML IV ONE (16:29)
[2017-03-27] MEDS ORDERED: traMADol TAB* 50 MG PO PRN (16:32)
[2017-03-27] MEDS: Heparin VIAL(*) 5000 UNITS/ML VIAL (FIVE THOUSAND) SUBCUT SCH (21:21)
[2017-03-28 06:53] LABS: EGFR Non-African American 24.2 (>60)
[2017-03-28] MEDS: Heparin VIAL(*) 5000 UNITS/ML VIAL (FIVE THOUSAND) SUBCUT SCH (07:36)
[2017-03-28 08:20] VITALS: BP 95/53
[2017-03-28] MEDS ORDERED: Aspirin EC Low Dose* 81 MG TAB.EC PO SCH (09:00)
[2017-03-28] MEDS ORDERED: Diltiazem CD CAP* 180 MG PO SCH (09:00)
[2017-03-28] MEDS ORDERED: Omeprazole CAP* 20 MG PO SCH (09:00)
--- NOTE | 2017-03-28 11:46 | DS ---
CC: Dr. Sutherland; Dr. Bella * DISCHARGE SUMMARY: DATE OF ADMISSION: 03/27/17 DATE OF DISCHARGE: 03/28/17 PRIMARY CARE PROVIDER: Dr. Sutherland. BOAT MECHANIC: Dr. Bella. PRIMARY DIAGNOSIS: Acute on chronic renal failure. SECONDARY DIAGNOSES: Include: 1. Asthma. 2. Atrial fibrillation. 3. Chronic liver disease. 4. Ascites. 5. Depression. 6. Gastroesophageal reflux disease. 7. Hypertension. MEDICATIONS ON DISCHARGE: Unchanged from admission include: 1. Zolpidem 10 mg at bedtime as needed. 2. Vitamin B complex one tab daily. 3. Spironolactone 50 mg twice daily. 4. Tessalon 100 mg 3 times a day as needed for cough. 5. Guaifenesin DM 5 mg every 4 hours as needed. 6. Pantoprazole 40 mg daily. 7. Oxycodone 5 mg every 4 hours as needed. 8. Lyrica 100 mg 4 times a day as needed. 9. Multivitamin one tab daily. 10. Lidocaine patch 5% transdermally daily. 11. Lactulose 30 mL 3 times a day. 12. Lactic acid 12% topically daily. 13. Lasix 40 mg daily. 14. Diltiazem CD 180 mg daily. 15. Aspirin 81 mg daily. HISTORY OF PRESENT ILLNESS AND HOSPITAL COURSE: This is a 72-year-old man with past medical history including alcoholic cirrhosis complicated by recurrent ascites, who was seen by Dr. Bella approximately 8 days prior to this presentation , planned paracentesis due to tense ascites. He, however, returned prior to that planned paracentesis at [facility] [place] ED with shortness of breath, underwent paracentesis at that time with 9000 mL removed. He was seen by Dr. Bella on 03/27 , at which time labs were drawn. It was notable for a creatinine of 2.9, increased from 2 earlier in the month. He was contacted by [facility], informed to proceed to the hospital based on increasing creatinine. Also at the time, he was seen by Dr. Bella. Spironolactone had been increased to 50 mg and Lasix had been decreased to 40 mg. Her notes also indicate that his records will be sent to [facility] for transfer of care to their service. In the emergency room, he was thought to be a little bit more confused, however, not encephalopathic. On the day of discharge seen by this author, he was back to his baseline mental status, felt well, had no complaints. No shortness of breath, chest pain, nausea, or vomiting. He had received approximately 2 L normal saline, positive 740 mL with improvement in his hyponatremia and his creatinine to 2.6 on the day of discharge. I suspected that he had worsening kidney function in the setting of large volume paracentesis possibly coupled with changes in his Lasix and/or spironolactone. Changes in medication will not be made at this time. He should have a repeat BMP in one week from today at [facility], which is being indicated to their providers. At followup, please; repeat BMP in one week. Reasons to return to the hospital included, but not limited to recurrent or worsening symptoms, any abdominal pain, worsening abdominal ascites, shortness of breath, chest pain, nausea, vomiting, lightheadedness, decreased urine output , bleeding from any sources discussed with the patient. He acknowledged understanding. TIME SPENT: Greater than 45 minutes was spent in the discharge of this patient , greater than half was spent [id number] with the patient. [id number]/[facility] #: [id number] JARAD
--- NOTE | 2017-03-28 16:12 | ED ---
Saima Gonzales Gabriel scribed for Aldo Kc MD on 03/27/17 at 1246 . Complex/Multi-Sys Presentation - HPI Summary HPI Summary: This patient is a 72 year old M presenting to [facility] after being seen at [employer] and having abnormal labs, per jessica portillo at [employer] GI MELD score is 28. The patient rates the pain 0/10 in severity. Patient reports weakness. Patient denies pain, fever, chills, diaphoresis, CP, SOB, and nausea. Patient has liver failure and gets paracentesis.- per triage. - History Of Current Complaint Chief Complaint: EDGeneral Time Seen by Provider: 03/27/17 11:27 Hx Obtained From: Patient Onset/Duration: Still Present Timing: Constant Severity Currently: Moderate Severity Initially: Moderate Associated Signs And Symptoms: Positive: Weakness, Other - pain, fever, chills, diaphoresis, CP, SOB, and nausea. - Allergies/Home Medications Allergies/Adverse Reactions: Allergies Allergy/AdvReac Type Severity Reaction Status Date / Time Doxycycline Allergy Rash Verified 03/27/17 10:53 Home Medications: Home Medications Aspirin EC Low Dose* [Ecotrin EC Low Dose 81 MG*] 81 mg PO DAILY 03/27/17 [ History Confirmed 03/27/17] Benzonatate CAP* [Tessalon 100 MG CAP*] 100 mg PO TID PRN 03/27/17 [History Confirmed 03/27/17] Diltiazem CD CAP* [Cardizem CD CAP*] 180 mg PO DAILY 03/27/17 [History Confirmed 03/27/17] Furosemide TAB* [Lasix TAB*] 40 mg PO DAILY 03/27/17 [History Confirmed 03/27/17 ] GuaiFENesin DM sugar free* [Robitussin DM sugar free*] 5 ml PO Q4HR PRN [History Confirmed 03/27/17] Lactic Acid CR 12% (NF) [Lac-Hydrin 12% (NF)] 12 % TOPICAL DAILY 03/27/17 [ History Confirmed 03/27/17] Lactulose* 30 ml PO TID 03/27/17 [History Confirmed 03/27/17] Lidocaine PATCH 5%* [Lidoderm 5% Patch*] 1 patch TRANSDERM QAM 03/27/17 [ History Confirmed 03/27/17] Multivitamins/Minerals TAB* [Theragran/minerals TAB*] 1 tab PO DAILY 03/27/17 [ History Confirmed 03/27/17] Pantoprazole TAB (NF) [Protonix TAB (NF)] 40 mg PO QAM 03/27/17 [History Confirmed 03/27/17] Spironolactone TAB* [Aldactone TAB 25 MG*] 50 mg PO BID 03/27/17 [History Confirmed 03/27/17] Vitamin B Complex TAB* [Complex B-100*] 1 tab PO DAILY 03/27/17 [History Confirmed 03/27/17] oxyCODONE TAB* [Roxycodone TAB 5 mg*] 5 mg PO Q4H PRN MDD 30 mg 03/27/17 [ History Confirmed 03/27/17] PMH/Surg Hx/FS Hx/Imm Hx Endocrine/Hematology History: Denies: Hx Diabetes, Hx Thyroid Disease Cardiovascular History: Reports: Hx Atrial Fibrillation, Hx Hypertension Respiratory History: Reports: Other Respiratory Problems/Disorders - Supraglottitis Denies: Hx Asthma, Hx Chronic Obstructive Pulmonary Disease (COPD) GI History: Reports: Hx Diverticulosis Denies: Hx Ulcer History: Reports: Hx Acute Renal Failure Musculoskeletal History: Reports: Hx Rheumatoid Arthritis Comment Only: Hx Osteoporosis - ? Neurological History: Reports: Hx Peripheral Neuropathy - Surgical History Surgery Procedure, Year, and Place: tonsillectomy at age 4 Infectious Disease History: No Infectious Disease History: Denies: Hx Clostridium Difficile, Hx Hepatitis, Hx Human Immunodeficiency Virus (HIV), Hx of Known/Suspected MRSA, Hx Shingles, Hx Tuberculosis, Hx Known/ Suspected VRE, Hx Known/Suspected VRSA, History Other Infectious Disease, Traveled Outside the [place] in Last 30 Days - Family History Known Family History: Negative: Cardiac Disease, Hypertension, Diabetes - Social History Alcohol Use: Daily Alcohol Amount: 1 bottle wine/ day Substance Use Type: Reports: None Smoking Status (MU): Never Smoked Tobacco Review of Systems Negative: Fever, Chills, Skin Diaphoresis Negative: Blurred Vision, Erythema Negative: Sore Throat Negative: Chest Pain Negative: Shortness Of Breath, Cough Negative: Abdominal Pain, Vomiting, Nausea Negative: dysuria, hematuria Negative: Myalgia, Edema Negative: Rash Neurological: Negative - dizziness Positive: Weakness All Other Systems Reviewed And Are Negative: Yes Physical Exam - Summary Physical Exam Summary: Constitutional: Well-developed, Well-nourished, Alert. (-) Distressed Skin: Warm, Dry HENT: Normocephalic; Atraumatic Eyes: Conjunctiva normal Neck: Musculoskeletal ROM normal neck. (-) JVD, (-) Stridor, (-) Tracheal deviation Cardio: Rhythm regular, rate normal, Heart sounds normal; Intact distal pulses; The pedal pulses are 2+ and symmetric. Radial pulses are 2+ and symmetric. (-) Murmur Pulmonary/Chest wall: Effort normal. (-) Respiratory distress, (-) Wheezes, (-) Rales Faint crackles on inspiration in left lower lobe Abd: Soft, (-) Tenderness, (+) Distension, (-) Guarding, (-) Rebound, Positive ascites Musculoskeletal: Trace pedal edema Lymph: (-) Cervical adenopathy Neuro: Alert, Oriented x3 Psych: Mood and affect Normal Triage Information Reviewed: Yes Vital Signs On Initial Exam: Initial Vitals Temp Pulse Resp BP Pulse Ox 96.4 F 77 20 116/61 94 03/27/17 10:53 03/27/17 10:53 03/27/17 10:53 03/27/17 10:53 03/27/17 10:53 Vital Signs Reviewed: Yes - Yamil Coma Scale Coma Scale Total: 14 Diagnostics - Vital Signs Vital Signs Temp Pulse Resp BP Pulse Ox 03/27/17 11:37 75 14 89/57 93 03/27/17 11:30 74 12 86/52 93 03/27/17 11:23 98/54 03/27/17 10:53 96.4 F 77 20 116/61 94 - Laboratory Lab Results: Lab Results 03/27/17 03/27/17 03/27/17 Range/Units 11:40 11:40 11:40 WBC 9.4 (3.5-10.8) 10^3/ul RBC 3.65 L (4.0-5.4) 10^6/ul Hgb 12.0 L (14.0-18.0) g/dl Hct 35 L (42-52) % MCV 95 H (80-94) fL MCH 33 H (27-31) pg MCHC 35 (31-36) g/dl RDW 13 (10.5-15) % Plt Count 218 (150-450) 10^3/ul MPV 9 (7.4-10.4) um3 Sodium 121 L (133-145) mmol/L Potassium 4.6 (3.5-5.0) mmol/L Chloride 89 L (101-111) mmol/L Carbon Dioxide 24 (22-32) mmol/L Anion Gap 8 (2-11) mmol/L BUN 33 H (6-24) mg/dL Creatinine 2.96 H (0.67-1.17) mg/dL Est GFR ( Amer) 26.9 (>60) Est GFR (Non-Af Amer) 20.9 (>60) BUN/Creatinine Ratio 11.1 (8-20) Glucose 121 H (70-100) mg/dL Calcium 8.6 (8.6-10.3) mg/dL Phosphorus 4.3 (2.5-5.0) mg/dL Magnesium 2.2 (1.9-2.7) mg/dL Total Bilirubin Pending Direct Bilirubin Pending Indirect Bilirubin Pending AST Pending ALT Pending Alkaline Phosphatase Pending Ammonia 47 (16-53) mol/L Troponin I Pending Total Protein Pending Albumin Pending Globulin Pending Albumin/Globulin Ratio Pending Result Diagrams: 03/27/17 11:40 03/28/17 06:24 Lab Statement: Any lab studies that have been ordered have been reviewed, and results considered in the medical decision making process. - Radiology ABD xray Radiology Interpretation Completed By: Radiologist - MODERATE RETAINED STOOL. ED physician has reviewed this radiology report. - CT CT Brain CT Interpretation Completed By: Radiologist - NO ACUTE INTRACRANIAL PATHOLOGY. ED physician has reviewed this radiology report. Complex Multi-Symp Course/Dx Assessment/Plan: This patient is a 72 year old M presenting to [facility] after being seen at [employer] and having abnormal labs. The patient rates the pain 0/10 in severity. Patient reports weakness. Patient denies pain, fever, chills, diaphoresis, CP, SOB, and nausea. Patient usually gets peritoneal dialysis but is unable to due to constipation, lives at [facility]. Patient has liver failure and gets paracentesis.- per triage. ABD XR reveals, per radiologist, MODERATE RETAINED STOOL. CT Brains reveals, No acute intracranial findings. ED physician has reviewed this radiology report. Test results with no significant abnormalities. Blood work and UA obtained. In the ED course the patient was given ASA, IV fluids, Prilosec, and ultram. We discussed patient care with Dr. Givens and they accepted the patient for admission. Patient will be admitted. The patient is agreeable with this plan. - Diagnoses Provider Diagnoses: UTI (urinary tract infection), Hyponatremia, End stage liver disease, Ascites - Physician Notifications Discussed Care Of Patient With: Mckay Givens Time Discussed With Above Provider: 13:18 Instructed by Provider To: Admit As Inpatient Discharge - Discharge Plan Condition: Fair Disposition: ADMITTED TO [facility] documentation as recorded by the Saima beckwith Gabriel accurately reflects the service I personally performed and the decisions made by , Aldo Kc MD.
== END 2017-03-28 13:00 ==
LOC: ED 10:45 → MED 16:55
PROVIDERS: ADMIT Internal Medicine; ATTEND Internal Medicine
DX: I12.9 Hypertensive chronic kidney disease with stage 1 through stage 4 chronic kidney disease, or unspecified chronic kidney disease (principal); N18.9 Chronic kidney disease, unspecified; N17.9 Acute kidney failure, unspecified; I48.91 Unspecified atrial fibrillation; J45.909 Unspecified asthma, uncomplicated; E87.1 Hypo-osmolality and hyponatremia; K70.31 Alcoholic cirrhosis of liver with ascites; K21.9 Gastro-esophageal reflux disease without esophagitis; F32.9 Major depressive disorder, single episode, unspecified; Z79.899 Other long term (current) drug therapy; R53.1 Weakness
CPT/HCPCS: 36415; 70450; 74018; 80048; 80076; 81003; 81015; 82140; 83735; 84100; 84484; 85027; 85610; 85730; 87086; 87641; 96360; 96372; 99284; A9270-GY; G0378; J1644

== ENCOUNTER → 2017-04-01 12:21 | Day surgery (SDC) | payer MEDICARE ==
--- NOTE | 2017-04-02 03:33 | OP ---
CC: Dr. Lawson Sutherland; [facility] * DATE OF OPERATION: 04/01/17 - SDS DATE OF : 41 SURGEON: Freddy Mondragon MD GAS METER CHECKER: None. ANESTHESIOLOGIST: None. PRE-OP DIAGNOSIS: Cirrhosis with ascites. POST-OP DIAGNOSIS: Cirrhosis with ascites. OPERATIVE PROCEDURE: Ultrasound guided paracentesis. DESCRIPTION OF PROCEDURE: The patient was supine in the procedure room. The abdomen was quite distended and tensed. Ultrasound was carried out in the right upper quadrant and a nice location for the paracentesis was identified and marked. The area was then prepped with antiseptic, draped in a sterile fashion. Local infiltrative anesthesia was administered. A skinny core worker needle identified the fluid and then the paracentesis catheter was placed without difficulty. Suction bottle was used to collect the ascites, and a total of about 12 L was collected before it ceased to flow and the catheter was removed without incident. Bandage was placed. He was discharged with instructions and will be happy to see him back in the future should the need arise. [id number]/CPS #: [id number] MTDD
== END | disposition home or self-care (01) ==
LOC: OR 12:21
PROVIDERS: ATTEND Surgery
DX: K70.31 Alcoholic cirrhosis of liver with ascites (principal); I48.0 Paroxysmal atrial fibrillation; F10.188 Alcohol abuse with other alcohol-induced disorder; I10 Essential (primary) hypertension; Z87.891 Personal history of nicotine dependence
CPT/HCPCS: 49082

== ENCOUNTER 2017-04-13 18:54 | Inpatient (IN) | payer MEDICARE ==
[2017-04-13 20:55] LABS: EGFR Non-African American 17.4 (>60)
[2017-04-13 21:04] LABS: ABS Basophils 0.1 10^3/ul (0-0.2); ABS Eosinophils 0.4 10^3/ul (0-0.6); ABS Lymphocytes 1.9 10^3/ul (1.0-4.8); ABS Monocytes 0.7 10^3/ul (0-0.8); ABS Neutrophils 4.5 10^3/ul (1.5-7.7); ABS Nucleated RBC 0 10^3/ul; Eosinophil % 5.7 % (0-6); Hematocrit 36 % (42-52); Hemoglobin 12.2 g/dl (14.0-18.0); Lymphocyte % 24.5 % (25-47); Mean Corpuscular HGB Conc 34 g/dl (31-36); Mean Corpuscular Hemoglobin 32 pg (27-31); Mean Corpuscular Volume 94 fL (80-94); Mean Platelet Volume 9 um3 (7.4-10.4); Nucleated Red Blood Cells % 0; Platelet Count 206 10^3/ul (150-450); Red Blood Count 3.83 10^6/ul (4.0-5.4); Red Cell Distribution Width 13 % (10.5-15); White Blood Count 7.6 10^3/ul (3.5-10.8)
[2017-04-13 21:08] LABS: Urine Appearance Cloudy; Urine Blood 3+ (Negative); Urine Color Yellow; Urine Ketones Negative (Negative); Urine Protein Negative (Negative); Urine Specific Gravity 1.009 (1.010-1.030); Urine Urobilinogen Positive (Negative)
[2017-04-13] MEDS ORDERED: NS 0.9% 1000 ML* 1,000 ML IV ONE (21:15)
[2017-04-13] MEDS ORDERED: cefTRIAXone(*) 1 GM in NS 0.9% 50 ML* 50 ML IVPB ONE (21:15)
[2017-04-13] MEDS ORDERED: Ondansetron INJ* 2 MG/ML VIAL IV PRN (21:39)
[2017-04-13] MEDS ORDERED: GuaiFENesin DM sugar free* 5 ML UDC PO PRN (21:45)
[2017-04-13] MEDS ORDERED: NS 0.9% 1000 ML* 1,000 ML IV SCH (21:45)
[2017-04-13] MEDS ORDERED: Benzonatate CAP* 100 MG PO PRN (21:45)
--- NOTE | 2017-04-14 00:38 | HP ---
CC: Wheeler Salvador * HISTORY AND PHYSICAL: DATE OF ADMISSION: 04/13/17 PRIMARY CARE PROVIDER: Marisol Franco. ATTENDING PHYSICIAN WHILE IN THE HOSPITAL: Rodney Faria MD * (report dictated by Jimy Abernathy NP). CHIEF COMPLAINT: Altered mental status. HISTORY OF PRESENTING ILLNESS: Mr. Art is a 72-year-old male patient. He has a history of alcoholic cirrhosis, history of AFib, neuropathy, and diverticulosis. He comes into the ED today. Initially, I received message from [facility] that the patient was altered and apparently was drowsy. Of note, he did receive some oxycodone last night. He just did not seem to be at his baseline. The nursing staff and the patient's who also reside at [facility] was concerned and they requested that he be evaluated. On interviewing him, he denies having any chest pain. Denies having any shortness of breath. He denies any abdominal pain. Denies any nausea or vomiting. He says he was a little drowsy this afternoon, but he denies having any recent fevers, chills, no abdominal discomfort, and he says he otherwise is feeling well. He denies any headache, any weaknesses to one side. The patient came into the ED today and it was noted that he appeared to be in acute renal failure. In addition, his ammonia was slightly elevated. The hospitalist service was asked to evaluate for admission. He denies having any chest pain or any shortness of breath or any orthopnea. PAST MEDICAL HISTORY: Significant for: 1. Cirrhosis. 2. Neuropathy. 3. AFib. 4. Diverticulosis. PAST SURGICAL HISTORY: 1. The patient has had a tonsillectomy. 2. Paracentesis. 3. Colonoscopy. MEDICATIONS: Home medications include: 1. Bactrim 1 tablet p.o. daily. 2. Lasix 40 mg b.i.d. 3. Diltiazem 180 mg p.o. daily. 4. Tessalon 100 mg p.o. b.i.d. as needed. 5. Aspirin 81 mg daily. 6. Lactulose 30 cc p.o. t.i.d. 7. Lac-Hydrin 12% topically daily. 8. Robitussin 5 cc p.o. every 4 hours as needed. 9. Ambien 10 mg p.o. at bedtime as needed. 10. Vitamin B 1 tablet p.o. daily. 11. Spironolactone 50 mg p.o. b.i.d. 12. Lyrica 100 mg p.o. 4 times a day. 13. Protonix 40 mg daily. 14. Multivitamin 1 tablet daily. 15. Lidoderm 1 patch transdermally q.a.m. 16. Oxycodone 5 mg every 4 hours as needed. ALLERGIES: To medications include FLAGYL, DOXYCYCLINE and TRAZODONE. FAMILY HISTORY: His mother has a history of lymphoma. Father had a history of colon cancer. SOCIAL HISTORY: The patient is a nonsmoker. He does not drink alcohol. He resides at [facility]. Surrogate is his . REVIEW OF SYSTEMS: There is no documented fever. He denies having any significant weight change. There is no double vision. He denies having any ear discharge. There is no rhinorrhea, no sore throat, no thyroid enlargement. Denied having any chest pain. There is no orthopnea. There is no nocturnal dyspnea. Denies having any abdominal pain. There is no nausea, no vomiting, no dysuria, no frequency, no seizure, no loss of consciousness, no pruritus, no skin ulcerations. Review of 14 systems completed, all others are negative. PHYSICAL EXAMINATION GENERAL: At this time, Mr. Art is a 72-year-old male patient. He appears to be well nourished, well developed. He is sitting in the ED stretcher. He does not appear to be in any acute distress. VITAL SIGNS: Blood pressure 105/65, pulse 79, respirations 18, O2 sat 95%, temperature 98.6. HEENT: Head: Atraumatic, normocephalic. Eyes: EOMs intact. Sclerae anicteric and not pale. Throat: Oral mucosa appears to be moist. No oropharyngeal erythema. NECK: Supple. LUNGS: Clear to auscultation bilaterally. No wheezes, rales, or rhonchi. HEART: Sounds S1, S2. Regular rate and rhythm. No murmurs, rubs, or gallops. ABDOMEN: Soft, flat. He does have what appears to be ascites, but it was nontender. EXTREMITIES: Pulses 2+ throughout. No peripheral edema. NEUROLOGIC: He is awake, alert, and oriented x3. No gross focal deficits. SKIN: Intact. LABORATORY DATA: Reveal a WBC 7.6, RBC 3.83, hemoglobin 12.2, hematocrit 36, platelet count of 206,000. Sodium 128, potassium 5.1, chloride 96, bicarb was 23. His BUN was 50; his creatinine is 3.47, his baseline is like 2.6. His glucose is 119, lactic 1.9, calcium 9, total bilirubin 1.3. AST 57, ALT 14, alk phos 178, ammonia 72, albumin of 2.9, lipase of 36. Urine showed positive urobilinogen, 3+ leukocyte esterase, 3+ wbc, 1+ bacteria. Old medical records were reviewed. ASSESSMENT AND PLAN: Mr. Art is a 72-year-old male patient coming in over to the ER today with complaints of altered mental status and weakness. On evaluation here today, it was noted he appeared to be in acute renal failure. He will be admitted under observation status for: 1. Weakness/altered mental status. At this point, he appears to be back to his baseline. I question if this is related to polypharmacy. He does appear to be on oxycodone which may need to be cut down to 2.5 mg every 8 hours for pain, a very small dose, instead of 5 every 4 hours. At this point, I have held it. He is back to his baseline. His ammonia is 72, but again, he is awake and oriented x3. I will continue his lactulose as t.i.d. and will repeat the ammonia in the morning. 2. Acute renal failure. This is probably secondary to the Bactrim. It looks like this was just started at the beginning of the month. He has had 3 days worth of it. The plan will be to hold this, hydrate him. He looks a little dry. It looks like they did increase his Lasix to twice a day and his spironolactone to twice a day recently as well which I would continue to do, but I think the combination of Bactrim is probably precipitating the acute renal failure, so we will hydrate him, we will follow him, we will get a FENA score and again, he has a catheter and he is draining. 3. Cirrhosis. Continue meds as prescribed. 4. Atrial fibrillation. He is not on anticoagulation because of his alcoholic cirrhosis and the risk of bleeding. We will go ahead and get his rate controlled. 5. History of neuropathy. Continue meds as prescribed. 6. DVT prophylaxis. He will be placed on SCDs. 7. Code status. Full code. 8. Fluids, electrolytes and nutrition. Again, he can have a low protein and we will go ahead with normal saline at 75 an hour for 1 L. TIME SPENT: On the admission was 60 minutes, greater than half of the time was spent [id number] with the patient obtaining my history and physical; the other half of the time was spent going over the plan of care with the patient and implementing plan of care. I did discuss the plan of care with my attending, Dr. Faria; he is in agreement. JIMY ABERNATHY, JOHNNIE [id number]/CPS #: [id number] MTDYakov
[2017-04-14 06:17] LABS: ABS Basophils 0.1 10^3/ul (0-0.2); ABS Eosinophils 0.4 10^3/ul (0-0.6); ABS Lymphocytes 1.6 10^3/ul (1.0-4.8); ABS Monocytes 0.7 10^3/ul (0-0.8); ABS Neutrophils 4.1 10^3/ul (1.5-7.7); ABS Nucleated RBC 0 10^3/ul; Eosinophil % 5.5 % (0-6); Hematocrit 35 % (42-52); Hemoglobin 12.2 g/dl (14.0-18.0); Lymphocyte % 23.5 % (25-47); Mean Corpuscular HGB Conc 35 g/dl (31-36); Mean Corpuscular Hemoglobin 32 pg (27-31); Mean Corpuscular Volume 93 fL (80-94); Mean Platelet Volume 9 um3 (7.4-10.4); Nucleated Red Blood Cells % 0.2; Platelet Count 174 10^3/ul (150-450); Red Blood Count 3.78 10^6/ul (4.0-5.4); Red Cell Distribution Width 13 % (10.5-15); White Blood Count 6.9 10^3/ul (3.5-10.8)
[2017-04-14 06:32] LABS: EGFR Non-African American 18.5 (>60)
[2017-04-14 06:39] LABS: INR 1.14 (0.77-1.02)
[2017-04-14] MEDS ORDERED: Diltiazem CD CAP* 180 MG PO SCH (09:00)
[2017-04-14] MEDS ORDERED: Spironolactone TAB* 25 MG PO SCH (09:00)
[2017-04-14] MEDS: Pregabalin CAP(*) 100 MG PO SCH ×4 (09:18→21:32)
[2017-04-14] MEDS: Multivitamins/Minerals TAB PO SCH (09:18)
[2017-04-14] MEDS: Omeprazole CAP* 20 MG PO SCH (09:19)
[2017-04-14] MEDS: Lidocaine PATCH 5%* 1 PATCH TRANSDERM SCH (09:19)
[2017-04-14] MEDS: Aspirin EC Low Dose* 81 MG TAB.EC PO SCH (09:19)
[2017-04-14] MEDS: Lactic Acid CR 12% (NF) 1 APPLIC TUBE TOPICAL SCH (09:31)
[2017-04-14] MEDS ORDERED: NS 0.9% 500 ML* 500 ML IV ONE ×2 (10:57→23:42)
--- NOTE | 2017-04-14 11:26 | PN ---
Subjective Date of Service: 04/14/17 Interval History: Pt examined today at the bedside. He states that he is feeling well today. He denies chest pain and ching sob. States he doesnt have any abd pain, or nausea or vomiting. ROS-denies fever, denies chills, denies abdominal pain, denies lightheadedness, denies loc, denies chest pain, denies sob, denies nausea, denies vomiting, review of 11 systems completed all others negative, Objective Active Medications: Aspirin (Aspirin Ec Low Dose*) 81 mg PO DAILY [facility] Last Admin: 04/14/17 09:19 Dose: 81 mg Benzonatate (Tessalon Cap*) 100 mg PO TID PRN PRN Reason: COUGH Diltiazem HCl (Cardizem Cd Cap*) 180 mg PO DAILY [facility] Guaifenesin/Dextromethorphan (Robitussin Dm Sugar Free*) 5 ml PO Q4HR PRN PRN Reason: COUGH Ceftriaxone Sodium 1 gm/ (Dextrose) 50 mls @ 200 mls/hr IVPB Q24H [facility] Sodium Chloride (Ns 0.9% 500 Ml*) 500 mls @ 1,000 mls/hr IV ONCE ONE Stop: 04/14/17 11:26 Lactic Acid (Lac-Hydrin 12% (Nf)) 1 applic TOPICAL DAILY [facility] Last Admin: 04/14/17 09:31 Dose: Not Given Lactulose (Lactulose*) 30 ml PO TID [facility] Last Admin: 04/14/17 09:19 Dose: 30 ml Lidocaine (Lidoderm 5% Patch*) 1 patch TRANSDERM QAM [facility] Last Admin: 04/14/17 09:19 Dose: 1 patch Multivitamins/Minerals (Theragran/Minerals Tab*) 1 tab PO DAILY [facility] Last Admin: 04/14/17 09:18 Dose: 1 tab Omeprazole (Prilosec Cap*) 20 mg PO QAM [facility] Last Admin: 04/14/17 09:19 Dose: 20 mg Ondansetron HCl (Zofran Inj*) 4 mg IV Q6H PRN PRN Reason: NAUSEA Pharmacy Profile Note (Lidocaine Patch Remove*) 1 note PATCH OFF 2100 [facility] Pregabalin (Lyrica Cap(*)) 100 mg PO QID [facility] Last Admin: 04/14/17 09:18 Dose: 100 mg Spironolactone (Aldactone Tab*) 50 mg PO BID [facility] Vital Signs - 8 hr 04/14/17 04/14/17 04/14/17 03:42 03:54 07:53 Temperature 97.9 F 97.3 F Pulse Rate 79 76 Respiratory 17 18 Rate Blood Pressure 90/60 88/56 (mmHg) O2 Sat by Pulse 97 99 Oximetry 04/14/17 04/14/17 04/14/17 09:18 09:36 10:40 Temperature Pulse Rate 72 Respiratory 16 Rate Blood Pressure 84/52 (mmHg) O2 Sat by Pulse 98 Oximetry Oxygen Devices in Use Now: Nasal Cannula Appearance: 72 y/o male chronically ill appearing, sitting in bed NAD, Eyes: No Scleral Icterus, PERRLA Ears/Nose/Mouth/Throat: NL Teeth, Lips, Gums Neck: NL Appearance and Movements; NL JVP Respiratory: Symmetrical Chest Expansion and Respiratory Effort Cardiovascular: NL Sounds; No Murmurs; No JVD, No Edema Abdominal: - - ascites noted, soft non tender, Extremities: No Edema Skin: No Rash or Ulcers Neurological: Alert and Oriented x 3 Lines/Tubes/Other Access: Clean, Dry and Intact Peripheral IV Result Diagrams: 04/14/17 05:57 04/14/17 05:57 Microbiology and Other Data: Microbiology 04/14/17 00:50 Nasal Screen MRSA (PCR)(CARIE) - Final Nasal Mrsa Not Detected Assess/Plan/Problems-Billing Assessment: 72 y/o patient [place] [facility] [place], in ed noted to be in ARF, - Patient Problems (1) Afib Current Visit: Yes Status: Acute Priority: High Comment: NSR, (2) DVT prophylaxis Current Visit: Yes Status: Acute Priority: High Comment: SCDs, for now, (3) FEN Current Visit: Yes Status: Acute Priority: High Comment: Low protien, (4) Full code status Current Visit: Yes Status: Acute Priority: High (5) GHADA (acute kidney injury) Current Visit: Yes Status: Acute Priority: High Comment: Acute on chronic kidney disease. Likely related to increase in lasix and aldactone. BP systolic 80's, will give ns bolus at this point and follow bp (6) Alcoholic cirrhosis Current Visit: Yes Status: Acute Priority: High Comment: Continue lactulose. Ammonia 92 however pt a and o times three, has ascites but is not tense, and no abd pain, plan for paracentesis prior to discharge or outpatient, (7) Altered mental state Current Visit: Yes Status: Acute Priority: High Comment: resolved, ammonia 94 but a and o times three, continue standing lactulose, Status and Disposition: Marisol Franco when stable,
[2017-04-14] MEDS: Heparin VIAL(*) 5000 UNITS/ML VIAL (FIVE THOUSAND) SUBCUT SCH ×2 (13:59→21:33)
[2017-04-14] MEDS: Lidocaine Patch REMOVE* 1 NOTE MISC PATCH OFF SCH (21:39)
[2017-04-14] MEDS: Spironolactone TAB* 25 MG PO SCH (21:40)
[2017-04-14] MEDS ORDERED: cefTRIAXone VIAL(*) 1,000 MG in NS 0.9% 50 ML* 50 ML IVPB SCH (22:00)
[2017-04-14] MEDS ORDERED: cefTRIAXone(*) 1 GM in D5W 50 ML BAG* 50 ML IVPB SCH (22:00)
[2017-04-15 05:28] LABS: ABS Basophils 0.1 10^3/ul (0-0.2); ABS Eosinophils 0.4 10^3/ul (0-0.6); ABS Lymphocytes 1.7 10^3/ul (1.0-4.8); ABS Monocytes 0.7 10^3/ul (0-0.8); ABS Neutrophils 3.4 10^3/ul (1.5-7.7); ABS Nucleated RBC 0 10^3/ul; Eosinophil % 6.5 % (0-6); Hematocrit 31 % (42-52); Hemoglobin 10.7 g/dl (14.0-18.0); Mean Corpuscular HGB Conc 34 g/dl (31-36); Mean Corpuscular Hemoglobin 32 pg (27-31); Mean Corpuscular Volume 93 fL (80-94); Mean Platelet Volume 9 um3 (7.4-10.4); Nucleated Red Blood Cells % 0.1; Platelet Count 141 10^3/ul (150-450); Red Blood Count 3.37 10^6/ul (4.0-5.4); Red Cell Distribution Width 13 % (10.5-15); White Blood Count 6.3 10^3/ul (3.5-10.8)
[2017-04-15 05:45] LABS: EGFR Non-African American 19.6 (>60)
[2017-04-15] MEDS: Heparin VIAL(*) 5000 UNITS/ML VIAL (FIVE THOUSAND) SUBCUT SCH ×3 (05:46→22:03)
[2017-04-15] MEDS: Lidocaine PATCH 5%* 1 PATCH TRANSDERM SCH (08:11)
[2017-04-15] MEDS: Pregabalin CAP(*) 100 MG PO SCH ×4 (08:12→22:02)
[2017-04-15] MEDS: Aspirin EC Low Dose* 81 MG TAB.EC PO SCH (08:13)
[2017-04-15] MEDS: Multivitamins/Minerals TAB PO SCH (08:13)
[2017-04-15] MEDS: Omeprazole CAP* 20 MG PO SCH (08:13)
[2017-04-15] MEDS: Spironolactone TAB* 25 MG PO SCH ×2 (08:15→21:53)
[2017-04-15] MEDS: Lactic Acid CR 12% (NF) 1 APPLIC TUBE TOPICAL SCH (08:15)
[2017-04-15] MEDS: Diltiazem CD CAP* 180 MG PO SCH (08:15)
[2017-04-15] MEDS: Amoxicillin/Clavulanate TAB* 875 MG PO SCH (21:59)
[2017-04-15] MEDS: Lidocaine Patch REMOVE* 1 NOTE MISC PATCH OFF SCH (22:06)
--- NOTE | 2017-04-15 23:35 | PN ---
Subjective Date of Service: 04/15/17 Interval History: No abdominal pain. Son Perez from [place] to try to arrange plan going forward. E Faecium >100K PSYCHOTHERAPIST slightly improving. Afebrile. is at [facility] currently with plan to go to [place] eventually. 1BM Objective Active Medications: Amoxicillin/Clavulanate Potassium (Augmentin Tab*) 875 mg PO BID [facility] Last Admin: 04/15/17 21:59 Dose: 875 mg Aspirin (Aspirin Ec Low Dose*) 81 mg PO DAILY [facility] Last Admin: 04/15/17 08:13 Dose: 81 mg Benzonatate (Tessalon Cap*) 100 mg PO TID PRN PRN Reason: COUGH Diltiazem HCl (Cardizem Cd Cap*) 180 mg PO DAILY [facility] Last Admin: 04/15/17 08:15 Dose: Not Given Guaifenesin/Dextromethorphan (Robitussin Dm Sugar Free*) 5 ml PO Q4HR PRN PRN Reason: COUGH Heparin Sodium (Porcine) (Heparin Vial(*)) 5,000 units SUBCUT Q8HR [facility] Last Admin: 04/15/17 22:03 Dose: 5,000 units Lactic Acid (Lac-Hydrin 12% (Nf)) 1 applic TOPICAL DAILY [facility] Last Admin: 04/15/17 08:15 Dose: Not Given Lactulose (Lactulose*) 30 ml PO QID [facility] Last Admin: 04/15/17 22:03 Dose: 30 ml Lidocaine (Lidoderm 5% Patch*) 1 patch TRANSDERM QAM [facility] Last Admin: 04/15/17 08:11 Dose: 1 patch Multivitamins/Minerals (Theragran/Minerals Tab*) 1 tab PO DAILY [facility] Last Admin: 04/15/17 08:13 Dose: 1 tab Omeprazole (Prilosec Cap*) 20 mg PO QAM [facility] Last Admin: 04/15/17 08:13 Dose: 20 mg Ondansetron HCl (Zofran Inj*) 4 mg IV Q6H PRN PRN Reason: NAUSEA Pharmacy Profile Note (Lidocaine Patch Remove*) 1 note PATCH OFF 2100 [facility] Last Admin: 04/15/17 22:06 Dose: 1 note Pregabalin (Lyrica Cap(*)) 100 mg PO QID [facility] Last Admin: 04/15/17 22:02 Dose: 100 mg Spironolactone (Aldactone Tab*) 50 mg PO BID [facility] Last Admin: 04/15/17 21:53 Dose: Not Given Vital Signs - 8 hr 04/15/17 04/15/17 04/15/17 16:04 17:42 17:43 Temperature 96.9 F Pulse Rate 79 Respiratory 18 16 16 Rate Blood Pressure 89/57 (mmHg) O2 Sat by Pulse 100 Oximetry 04/15/17 04/15/17 04/15/17 18:22 21:52 22:02 Temperature 97.6 F Pulse Rate 79 Respiratory 21 18 18 Rate Blood Pressure 102/65 (mmHg) O2 Sat by Pulse 100 Oximetry Oxygen Devices in Use Now: Nasal Cannula Appearance: chronically ill appearing. Eyes: No Scleral Icterus, PERRLA Respiratory: Symmetrical Chest Expansion and Respiratory Effort, Clear to Auscultation Cardiovascular: NL Sounds; No Murmurs; No JVD, RRR Abdominal: - - soft, distended, nontender. ascites. Extremities: No Edema, No Clubbing, Cyanosis Skin: No Rash or Ulcers Neurological: Alert and Oriented x 3, - - trace flicker of asterixis on left Nutrition: Taking PO's Result Diagrams: 04/15/17 05:15 04/15/17 05:15 Additional Lab and Data: Laboratory Results - last 24 hr 04/15/17 04/15/17 04/15/17 05:15 05:15 05:15 WBC 6.3 RBC 3.37 L Hgb 10.7 L Hct 31 L MCV 93 MCH 32 H MCHC 34 RDW 13 Plt Count 141 L MPV 9 Neut % (Auto) 54.0 Lymph % (Auto) 27.0 [place] % (Auto) 10.8 H Eos % (Auto) 6.5 H Baso % (Auto) 1.7 Absolute Neuts (auto) 3.4 Absolute Lymphs (auto) 1.7 Absolute Monos (auto) 0.7 Absolute Eos (auto) 0.4 Absolute Basos (auto) 0.1 Absolute Nucleated RBC 0 Nucleated RBC % 0.1 Sodium 128 L Potassium 4.6 Chloride 100 L Carbon Dioxide 20 L Anion Gap 8 BUN 49 H Creatinine 3.12 H Est GFR ( Amer) 25.3 Est GFR (Non-Af Amer) 19.6 BUN/Creatinine Ratio 15.7 Glucose 106 H Calcium 8.5 L Ammonia 94 H Microbiology and Other Data: Microbiology 04/13/17 20:32 Blood Venous Aerobic Blood Culture - Preliminary No Growth Day 2 04/13/17 20:32 Blood Venous Anaerobic Blood Culture - Preliminary No Growth Day 2 04/13/17 20:32 Blood Venous Aerobic Blood Culture - Preliminary No Growth Day 2 04/13/17 20:32 Blood Venous Anaerobic Blood Culture - Preliminary No Growth Day 2 04/13/17 20:50 Urine Urine Culture - Preliminary Enterococcus Faecium 04/14/17 00:50 Nasal Nasal Screen MRSA (PCR)(CARIE) - Final Mrsa Not Detected Assess/Plan/Problems-Billing Assessment: 72 y/o male PMH EtOH Cirrhosis s/p multiple para last 4 weeks, presenting from [facility] with AMS. GHADA on CKD, E Faecium UTI. Mentation improved. - Patient Problems (1) Alcoholic cirrhosis Current Visit: Yes Status: Acute Priority: High Code(s): K70.30 - ALCOHOLIC CIRRHOSIS OF LIVER WITHOUT ASCITES SNOMED Code(s): 108318535 Comment: Continue lactulose but titrate to BMs ~3 soft a day. Ammonia 92 outpatient paracentesis arranged for Friday w/ Dr. Mondragon 11:30m at [facility]. GI/hepatology f/u. Previously with Dr. Bella of [place]. (2) UTI (urinary tract infection) Current Visit: Yes Status: Acute Comment: E Faecium >100K. s/p ceftriaxone - > augmentin empirically. f/u final sensitivities. (3) GHADA (acute kidney injury) Current Visit: Yes Status: Acute Priority: High Code(s): N17.9 - ACUTE KIDNEY FAILURE, UNSPECIFIED SNOMED Code(s): 59193486 Comment: Acute on chronic kidney disease. DDx ATN 2/2 E Faceium UTI vs increase in diuresis vs large volume paracentesis vs hepatorenal syndrome. PSYCHOTHERAPIST 3.5-> 3.3->3.1. Recent range was between 1.8 and 3.0: (4) Afib Current Visit: Yes Status: Acute Priority: High Code(s): I48.91 - UNSPECIFIED ATRIAL FIBRILLATION SNOMED Code(s): 51565073 Comment: NSR, (5) Altered mental state Current Visit: Yes Status: Acute Priority: High Code(s): R41.82 - ALTERED MENTAL STATUS, UNSPECIFIED SNOMED Code(s): 200326795 Comment: largely resolved, likely combination of hepatic encephalopathy + UTI. ammonia 94 continue standing lactulose, abx (6) Hyponatremia Current Visit: No Status: Acute Code(s): E87.1 - HYPO-OSMOLALITY AND HYPONATREMIA SNOMED Code(s): 51537844 Comment: Likely related to cirrhosis. stable 128. Status and Disposition: medicine inpatient. likely d/c 04/16 to [facility] Attending: Tutu Mc
[2017-04-16] MEDS: Heparin VIAL(*) 5000 UNITS/ML VIAL (FIVE THOUSAND) SUBCUT SCH ×3 (06:11→21:42)
[2017-04-16] MEDS: Pregabalin CAP(*) 100 MG PO SCH ×4 (07:59→20:27)
[2017-04-16] MEDS: Multivitamins/Minerals TAB PO SCH (07:59)
[2017-04-16] MEDS: Omeprazole CAP* 20 MG PO SCH (07:59)
[2017-04-16] MEDS: Aspirin EC Low Dose* 81 MG TAB.EC PO SCH (07:59)
[2017-04-16] MEDS: Amoxicillin/Clavulanate TAB* 875 MG PO SCH (07:59)
[2017-04-16] MEDS: Lidocaine PATCH 5%* 1 PATCH TRANSDERM SCH (08:00)
[2017-04-16] MEDS: Lactic Acid CR 12% (NF) 1 APPLIC TUBE TOPICAL SCH (08:00)
[2017-04-16] MEDS: Diltiazem CD CAP* 180 MG PO SCH (08:00)
[2017-04-16] MEDS: Spironolactone TAB* 25 MG PO SCH ×2 (08:01→20:22)
[2017-04-16] MEDS ORDERED: Linezolid TAB* 600 MG PO ONE (09:02)
[2017-04-16 09:55] LABS: ABS Basophils 0.1 10^3/ul (0-0.2); ABS Eosinophils 0.5 10^3/ul (0-0.6); ABS Lymphocytes 1.7 10^3/ul (1.0-4.8); ABS Monocytes 0.8 10^3/ul (0-0.8); ABS Neutrophils 4.4 10^3/ul (1.5-7.7); ABS Nucleated RBC 0 10^3/ul; Hematocrit 34 % (42-52); Hemoglobin 11.4 g/dl (14.0-18.0); Lymphocyte % 23.2 % (25-47); Mean Corpuscular HGB Conc 34 g/dl (31-36); Mean Corpuscular Hemoglobin 32 pg (27-31); Mean Corpuscular Volume 94 fL (80-94); Mean Platelet Volume 9 um3 (7.4-10.4); Nucleated Red Blood Cells % 0; Platelet Count 153 10^3/ul (150-450); Red Cell Distribution Width 13 % (10.5-15); White Blood Count 7.5 10^3/ul (3.5-10.8)
[2017-04-16 10:15] LABS: EGFR Non-African American 23.1 (>60)
--- NOTE | 2017-04-16 14:17 | CONS ---
CONSULTATION REPORT: DATE OF CONSULT: 04/16/17. REQUESTING PHYSICIAN: Dr. Mc. CONSULTING SERVICE: Infectious Disease. REASON FOR CONSULT: Question of urinary tract infection. IMPRESSION: 1. Admitted with encephalopathy due to cirrhosis and improving before antibiotics and without antibiotics to treat enterococcus. 2. Greater than 100,000 colonies of vancomycin resistant enterococcus without urinary frequency or dysuria, flank pain, pelvic pain; no leukocytosis, no fever , this represents asymptomatic bacteruria. 3. Allergy to DOXYCYCLINE, METRONIDAZOLE. 4. Cirrhosis with ascites. RECOMMENDATIONS: Continue without antibiotics. HISTORY OF PRESENT ILLNESS: This is a 72-year-old man with cirrhosis admitted with change in mental status on April 13. He cannot provide much of the history of the event. Details were obtained from discussion with Dr. Mc and review of the medical record. Apparently, he lives at [facility], had gotten oxycodone the night before his admission and they sent him to the ER because they felt his mental status was decreased from baseline. He had blood cultures taken that were negative. Urine culture grew enterococcus as noted above. Urinalysis shows blood, leukocyte esterase, no nitrites. He denies cough, chest pain, frequency, dysuria. He is found to have acute kidney injury. His baseline creatinine looks to be about 2.5 through March and when he came here it was 3.5. It was noted at 2.7 now. His BUN was as high as 51, it is down to 43. He denies any specific complaints or pain. His ammonia is 95. PAST MEDICAL HISTORY: 1. Cirrhosis with ascites and encephalopathy. 2. Neuropathy. 3. Atrial fibrillation. 4. Diverticulosis. 5. Status post tonsillectomy. 6. History of paracentesis. 7. History of colonoscopy. MEDICATIONS: 1. Aspirin. 2. Benzonatate. 3. Diltiazem. 4. Guaifenesin. 5. Heparin subcutaneous injection. 6. Lactulose 4 times a day. 7. Lidocaine patch. 8. Linezolid 600 mg once. 9. Multivitamin. 10. Omeprazole. 11. Pregabalin. 12. Spironolactone. ALLERGIES: FLAGYL, DOXYCYCLINE, TRAZODONE. FAMILY HISTORY: Mother had lymphoma. Father had colon cancer. SOCIAL HISTORY: Lives at [facility]. He is . He does not drink or smoke. REVIEW OF SYSTEMS: A 14-point review of systems was negative except as noted above. PHYSICAL EXAM: Vital Signs: Temperature 36.5, heart rate 80, respiratory rate 16, blood pressure 93/60, oxygen saturation 100% on room air. General: He is awake, and not in distress. Neurologic: He is oriented x2. Follows commands, moves all extremities. HEENT: There is no conjunctival hemorrhage. Oropharynx without lesions. Neck: Supple without nuchal rigidity. Lymph nodes : There is no inguinal, axillary, or epitrochlear lymphadenopathy. Heart: Regular rate and rhythm without murmurs, rubs, or gallops. Lungs: Clear to auscultation bilaterally. Abdomen: Soft, with bowel sounds present. He is distended. He has bulging flanks. Musculoskeletal: No spine tenderness to palpation. Genitourinary: He has a Guevara catheter present. Skin: There is no rash or splinter hemorrhages. DIAGNOSTIC STUDIES/LAB DATA: Sodium 128, creatinine 2.7, white blood cell count 7, hemoglobin 11, platelets 153. CRP on admission was 16. Please see the impressions and recommendation as outlined above, which I discussed with Dr. Mc. Thank you for asking me to see Mr. Art in consultation. [id number]/[facility] #: [id number] JARAD
[2017-04-16] MEDS ORDERED: NS 0.9% 500 ML* 500 ML IV ONE (16:40)
[2017-04-16] MEDS: Lidocaine Patch REMOVE* 1 NOTE MISC PATCH OFF SCH (20:26)
--- NOTE | 2017-04-16 22:17 | PN ---
Subjective Date of Service: 04/16/17 Interval History: 1 dose linezolid for VRE on Urine culture this AM. Augmentin stopped. ID consulted, linezolid not redosed. ?colonization of terrazas still some short term memory issues only 1 BM yesterday and none yet today. vomited brownish liquid. hypotensive, got 500cc bolus. 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 3.1 to 2.7 Objective Active Medications: Aspirin (Aspirin Ec Low Dose*) 81 mg PO DAILY [facility] Last Admin: 04/16/17 07:59 Dose: 81 mg Benzonatate (Tessalon Cap*) 100 mg PO TID PRN PRN Reason: COUGH Guaifenesin/Dextromethorphan (Robitussin Dm Sugar Free*) 5 ml PO Q4HR PRN PRN Reason: COUGH Heparin Sodium (Porcine) (Heparin Vial(*)) 5,000 units SUBCUT Q8HR [facility] Last Admin: 04/16/17 21:42 Dose: 5,000 units Lactic Acid (Lac-Hydrin 12% (Nf)) 1 applic TOPICAL DAILY [facility] Last Admin: 04/16/17 08:00 Dose: Not Given Lactulose (Lactulose*) 30 ml PO QID [facility] Last Admin: 04/16/17 20:27 Dose: 30 ml Lidocaine (Lidoderm 5% Patch*) 1 patch TRANSDERM QAM [facility] Last Admin: 04/16/17 08:00 Dose: 1 patch Multivitamins/Minerals (Theragran/Minerals Tab*) 1 tab PO DAILY [facility] Last Admin: 04/16/17 07:59 Dose: 1 tab Omeprazole (Prilosec Cap*) 20 mg PO QAM [facility] Last Admin: 04/16/17 07:59 Dose: 20 mg Ondansetron HCl (Zofran Inj*) 4 mg IV Q6H PRN PRN Reason: NAUSEA Pharmacy Profile Note (Lidocaine Patch Remove*) 1 note PATCH OFF 2100 [facility] Last Admin: 04/16/17 20:26 Dose: 1 note Pregabalin (Lyrica Cap(*)) 100 mg PO QID [facility] Last Admin: 04/16/17 20:27 Dose: 100 mg Spironolactone (Aldactone Tab*) 50 mg PO BID [facility] Last Admin: 04/16/17 20:22 Dose: Not Given Vital Signs - 8 hr 04/16/17 04/16/17 04/16/17 16:26 16:35 17:41 Temperature 98.1 F Pulse Rate 102 Respiratory 18 16 Rate Blood Pressure 72/44 82/52 (mmHg) O2 Sat by Pulse 97 Oximetry 04/16/17 04/16/17 04/16/17 18:23 20:19 20:23 Temperature 97.9 F Pulse Rate 87 Respiratory 15 17 17 Rate Blood Pressure 92/57 (mmHg) O2 Sat by Pulse 95 Oximetry 04/16/17 20:27 Temperature Pulse Rate Respiratory 17 Rate Blood Pressure (mmHg) O2 Sat by Pulse Oximetry Oxygen Devices in Use Now: Nasal Cannula Appearance: chronically ill appearing. Eyes: No Scleral Icterus, PERRLA Ears/Nose/Mouth/Throat: NL Teeth, Lips, Gums Neck: NL Appearance and Movements; NL JVP Respiratory: Symmetrical Chest Expansion and Respiratory Effort, Clear to Auscultation Cardiovascular: NL Sounds; No Murmurs; No JVD, RRR Abdominal: - - distended, soft, nontender. Extremities: No Edema Skin: No Rash or Ulcers Neurological: - - no significant asterixis, somewhat forgetful. overall improved. Nutrition: Taking PO's Result Diagrams: 04/16/17 09:41 04/16/17 09:41 Additional Lab and Data: Laboratory Results - last 24 hr 04/16/17 04/16/17 09:41 09:41 WBC 7.5 RBC 3.60 L Hgb 11.4 L Hct 34 L MCV 94 MCH 32 H MCHC 34 RDW 13 Plt Count 153 MPV 9 Neut % (Auto) 58.0 Lymph % (Auto) 23.2 L [place] % (Auto) 10.8 H Eos % (Auto) 7.0 H Baso % (Auto) 1.0 Absolute Neuts (auto) 4.4 Absolute Lymphs (auto) 1.7 Absolute Monos (auto) 0.8 Absolute Eos (auto) 0.5 Absolute Basos (auto) 0.1 Absolute Nucleated RBC 0 Nucleated RBC % 0 Sodium 128 L Potassium 4.4 Chloride 101 Carbon Dioxide 19 L Anion Gap 8 BUN 43 H Creatinine 2.71 H Est GFR ( Amer) 29.7 Est GFR (Non-Af Amer) 23.1 BUN/Creatinine Ratio 15.9 Glucose 125 H Calcium 9.1 Microbiology and Other Data: Microbiology 04/13/17 20:32 Blood Venous Aerobic Blood Culture - Preliminary No Growth Day 3 04/13/17 20:32 Blood Venous Anaerobic Blood Culture - Preliminary No Growth Day 3 04/13/17 20:32 Blood Venous Aerobic Blood Culture - Preliminary No Growth Day 3 04/13/17 20:32 Blood Venous Anaerobic Blood Culture - Preliminary No Growth Day 3 04/13/17 20:50 Urine Urine Culture - Final Vre Enterococcus Faecium 04/14/17 00:50 Nasal Nasal Screen MRSA (PCR)(CARIE) - Final Mrsa Not Detected Assess/Plan/Problems-Billing Assessment: 72 y/o male PMH EtOH Cirrhosis s/p multiple para last 4 weeks, presenting from [facility] with AMS. GHADA on CKD, VRE Faecium UTI vs colonization. Mentation improved. Planned outpatient paracentesis 04/18 - Patient Problems (1) Alcoholic cirrhosis Current Visit: Yes Status: Acute Priority: High Code(s): K70.30 - ALCOHOLIC CIRRHOSIS OF LIVER WITHOUT ASCITES SNOMED Code(s): 535396059 Comment: Continue lactulose but titrate to BMs ~3 soft a day. last Ammonia 92 outpatient paracentesis arranged for Friday w/ Dr. Mondragon 11:30m at [facility]. 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 Previously with Dr. Bella of [place]. (2) UTI (urinary tract infection) Current Visit: Yes Status: Acute Comment: VRE E Faecium >100K. s/p ceftriaxone -> augmentin -> linezolid x1 to stop per ID recs. appreciated. suspicion for colonization of terrazas. (3) GHADA (acute kidney injury) Current Visit: Yes Status: Acute Priority: High Code(s): N17.9 - ACUTE KIDNEY FAILURE, UNSPECIFIED SNOMED Code(s): 97017286 Comment: Acute on chronic kidney disease. DDx ATN 2/2 E Faceium UTI vs increase in diuresis vs large volume paracentesis vs hepatorenal syndrome. SCHOOL PLANT CONSULTANT 3.5-> 3.3->3.1-> 2.7. Recent range was between 1.8 and 3.0: (4) Afib Current Visit: Yes Status: Acute Priority: High Code(s): I48.91 - UNSPECIFIED ATRIAL FIBRILLATION SNOMED Code(s): 84587769 Comment: NSR, (5) Altered mental state Current Visit: Yes Status: Acute Priority: High Code(s): R41.82 - ALTERED MENTAL STATUS, UNSPECIFIED SNOMED Code(s): 472262870 Comment: largely resolved, likely combination of hepatic encephalopathy +/- UTI. ammonia 94 continue standing lactulose, abx now stopped. planned paracentesis on 04/18 with surgery. would send studies to rule out SBP (6) Hyponatremia Current Visit: No Status: Acute Code(s): E87.1 - HYPO-OSMOLALITY AND HYPONATREMIA SNOMED Code(s): 63512703 Comment: Likely related to cirrhosis. stable 128. Status and Disposition: medicine inpatient. dispo to [facility]
[2017-04-17 05:00] LABS: ABS Basophils 0.1 10^3/ul (0-0.2); ABS Eosinophils 0.6 10^3/ul (0-0.6); ABS Lymphocytes 1.1 10^3/ul (1.0-4.8); ABS Monocytes 0.7 10^3/ul (0-0.8); ABS Neutrophils 6.9 10^3/ul (1.5-7.7); ABS Nucleated RBC 0 10^3/ul; Eosinophil % 5.9 % (0-6); Hematocrit 33 % (42-52); Hemoglobin 11.2 g/dl (14.0-18.0); Lymphocyte % 12.1 % (25-47); Mean Corpuscular HGB Conc 34 g/dl (31-36); Mean Corpuscular Hemoglobin 32 pg (27-31); Mean Corpuscular Volume 93 fL (80-94); Mean Platelet Volume 10 um3 (7.4-10.4); Nucleated Red Blood Cells % 0; Platelet Count 135 10^3/ul (150-450); Red Blood Count 3.56 10^6/ul (4.0-5.4); Red Cell Distribution Width 14 % (10.5-15); White Blood Count 9.3 10^3/ul (3.5-10.8)
[2017-04-17] MEDS: Heparin VIAL(*) 5000 UNITS/ML VIAL (FIVE THOUSAND) SUBCUT SCH ×3 (05:22→21:21)
[2017-04-17 08:03] LABS: EGFR Non-African American 23.4 (>60)
[2017-04-17] MEDS: Lidocaine PATCH 5%* 1 PATCH TRANSDERM SCH (08:39)
[2017-04-17] MEDS: Pregabalin CAP(*) 100 MG PO SCH ×4 (08:40→21:19)
[2017-04-17] MEDS: Multivitamins/Minerals TAB PO SCH (08:40)
[2017-04-17] MEDS: Spironolactone TAB* 25 MG PO SCH ×2 (08:40→21:19)
[2017-04-17] MEDS: Aspirin EC Low Dose* 81 MG TAB.EC PO SCH (08:40)
[2017-04-17] MEDS: Omeprazole CAP* 20 MG PO SCH (08:40)
[2017-04-17] MEDS: Lactic Acid CR 12% (NF) 1 APPLIC TUBE TOPICAL SCH (08:41)
--- NOTE | 2017-04-17 15:53 | DS ---
DATE OF ADMISSION: 04/13/2017. DATE OF DISCHARGE: 04/18/2017. ADMITTING PROVIDER: Jimy Abernathy NP. ATTENDING PHYSICIAN: Tutu Mc MD. PRIMARY CARE PHYSICIAN: Lawson Sutherland MD. CHIEF COMPLAINT: Altered mental status. PRINCIPAL DIAGNOSES: Altered mental status in the setting of pain medications, hepatic encephalopathy. HISTORY OF PRESENT ILLNESS AND HOSPITAL COURSE: Mr. Art is a 72-year-old patient recently diagnosed with alcoholic cirrhosis, atrial fibrillation, neuropathy, and diverticulosis. He was transferred from [facility] after appearing drowsy. He had some Oxycodone the night prior. He denied any shortness of breath, abdominal pain, fevers, chills or nausea. On presentation , he had an acute kidney injury. Of note, he had undergone an outpatient paracentesis on 04/01/[address] Mondragon which was noted to be a very large volume with 12 liters. Creatinine on the had been 2.63 and on presentation here was 3.47. His diuretics were initially held and he received some gentle IV fluids and his creatinine slowly improved from 3.47 down to 2.68 on the day of discharge consistent with prior recent baselines. Of note, his diuretics are being reduced on discharge and he has been scheduled to get outpatient paracentesis which he will likely need on a regular basis, next scheduled on 04/18/[address] Mondragon again at 11:[address] [facility]. He was noted to have urine culture positive for VRE. ID consultation was obtained and thought this represented colonization of his urinary Guevara catheter given lack of dysuria, no white count, no fevers. He did get empirically one dose of Ceftriaxone on the , one dose of Augmentin on the 6th and one dose of Linezolid on the prior to ID suggestion to stop antibiotics. The patient was noted to have elevated ammonia levels, 72 on admission and then up to 94 the morning of hospital day number two. He attested to having between zero and one bowel movements and as an outpatient he will need to have titration of his bowel movements with additional Lactulose as needed to have two to three soft bowel movements a day to prevent hepatic encephalopathy from developing. His initial bilirubin was 1.30, his INR was 1.14. INR is consistent with previous values stretching back to February of 2017. Bilirubin improved from prior which had max at 1.80. He was hyponatremic at 128, improved to 130 on the day prior to discharge. He should have a low salt diet. Recommendation to get Albumin transfusions with the outpatient paracentesis, especially if large volume. Also suggestion to get diagnostic studies with this next paracentesis to rule out any signs of infection. Long discussions were had with both sons, Perez and Joe. Joe's cell phone is and desires to have frequent communication about the status of his father's plan of care. Dr. Sutherland is his primary care doctor. He originally followed with [facility], Dr. Bella, and was seemingly discharged from their service and has follow-up scheduled with Yecenia Bonilla NP of [facility] on April 23 at 1:45 p.m. The patient's family's ultimate goal may be to transport both patient and his , who is currently additional at [facility], to be closer to son Perez in [place], [place], but these arrangements are in the still planning phases. Of note, his MOLST form was changed per request of both patient and both sons to no longer as he checked being comfort care only, but does want to have intermittent outpatient paracentesis as necessary, antibiotics as necessary, and limited medical interventions box was checked. Patient had paracentesis of ~ 2L on 04/18/17 (originally scheduled as outpatient but [facility] would not accept attempted transfer on 04/17 until this was performed). 85 neutrophil count. No growth on culture. DISCHARGE MEDICATIONS: 1. Lasix 40 mg p.o. daily (reduced from b.i.d.). 2. Lactulose 30 ml p.o. q.i.d. (increased from t.i.d.). 3. Aspirin 81 mg. 4. Tessalon 100 mg t.i.d. prn. 5. Robitussin 5 ml p.o. q.4 hours prn. 6. Lidocaine patch 5% transdermal q.a.m. 7. Protonix 40 mg p.o. q.a.m. 8. Lyrica 100 mg p.o. q.i.d. 9. Spironolactone 50 mg p.o. daily (reduced from 50 mg p.o. b.i.d.). 10. Vitamin B-100 one tab p.o. daily. DIET: Low salt diet. ACTIVITY RESTRICTIONS: No restrictions. FOLLOW-UP: The patient has a follow-up scheduled with Yecenia Bonilla NP of [facility] on 04/23/2017 at 1:45 p.m. He should also follow-up with Dr. Lawson Sutherland, his primary care physician. With any large volume paracentesis, he should receive Albumin infusions. Time spent on this discharge was 45 minutes. [id number]/[facility] #: [id number]
--- NOTE | 2017-04-17 16:48 | PN ---
Subjective Date of Service: 04/17/17 Interval History: vomited small amount this AM. no abdominal pain, confusion or fevers. 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 outpatient paracentesis has been schedule with surgery. [facility] would not accept admission. MOLST form sasha. Pt does not desire to be "comfort care" but with limited medical interventions which include paracentesis, antibiotics. still DNR/DNI Objective Active Medications: Aspirin (Aspirin Ec Low Dose*) 81 mg PO DAILY [facility] Last Admin: 04/17/17 08:40 Dose: 81 mg Benzonatate (Tessalon Cap*) 100 mg PO TID PRN PRN Reason: COUGH Guaifenesin/Dextromethorphan (Robitussin Dm Sugar Free*) 5 ml PO Q4HR PRN PRN Reason: COUGH Last Admin: 04/17/17 08:40 Dose: 5 ml Heparin Sodium (Porcine) (Heparin Vial(*)) 5,000 units SUBCUT Q8HR [facility] Last Admin: 04/17/17 13:00 Dose: 5,000 units Lactic Acid (Lac-Hydrin 12% (Nf)) 1 applic TOPICAL DAILY [facility] Last Admin: 04/17/17 08:41 Dose: Not Given Lactulose (Lactulose*) 30 ml PO QID [facility] Last Admin: 04/17/17 13:00 Dose: 30 ml Lidocaine (Lidoderm 5% Patch*) 1 patch TRANSDERM QAM [facility] Last Admin: 04/17/17 08:39 Dose: 1 patch Multivitamins/Minerals (Theragran/Minerals Tab*) 1 tab PO DAILY [facility] Last Admin: 04/17/17 08:40 Dose: 1 tab Omeprazole (Prilosec Cap*) 20 mg PO QAM [facility] Last Admin: 04/17/17 08:40 Dose: 20 mg Ondansetron HCl (Zofran Inj*) 4 mg IV Q6H PRN PRN Reason: NAUSEA Pharmacy Profile Note (Lidocaine Patch Remove*) 1 note PATCH OFF 2100 [facility] Last Admin: 04/16/17 20:26 Dose: 1 note Pregabalin (Lyrica Cap(*)) 100 mg PO QID [facility] Last Admin: 04/17/17 13:01 Dose: 100 mg Spironolactone (Aldactone Tab*) 50 mg PO BID [facility] Last Admin: 04/17/17 08:40 Dose: 50 mg Vital Signs - 8 hr 02/08/18 02/08/18 02/08/18 08:54 09:03 10:30 Temperature Pulse Rate Respiratory 16 16 Rate Blood Pressure (mmHg) O2 Sat by Pulse 98 Oximetry 04/17/17 04/17/17 04/17/17 11:42 13:00 13:01 Temperature 97.4 F Pulse Rate 84 Respiratory 17 16 Rate Blood Pressure 90/49 106/72 (mmHg) O2 Sat by Pulse 100 Oximetry 04/17/17 14:35 Temperature Pulse Rate Respiratory 16 Rate Blood Pressure (mmHg) O2 Sat by Pulse Oximetry Oxygen Devices in Use Now: Nasal Cannula Appearance: NAD, chroniclly ill apearing. Eyes: No Scleral Icterus, PERRLA Ears/Nose/Mouth/Throat: NL Teeth, Lips, Gums Respiratory: Symmetrical Chest Expansion and Respiratory Effort, Clear to Auscultation Cardiovascular: NL Sounds; No Murmurs; No JVD, No Edema Abdominal: - - distended, soft, nontender. Extremities: No Edema Skin: No Rash or Ulcers, No Nodules or Sclerosis Neurological: Alert and Oriented x 3, NL Gait Nutrition: Taking PO's Result Diagrams: 04/17/17 04:17 04/17/17 04:17 Additional Lab and Data: Laboratory Results - last 24 hr 04/17/17 04/17/17 04:17 04:17 WBC 9.3 RBC 3.56 L Hgb 11.2 L Hct 33 L MCV 93 MCH 32 H MCHC 34 RDW 14 Plt Count 135 L MPV 10 Neut % (Auto) 73.9 Lymph % (Auto) 12.1 L [place] % (Auto) 7.1 Eos % (Auto) 5.9 Baso % (Auto) 1.0 Absolute Neuts (auto) 6.9 Absolute Lymphs (auto) 1.1 Absolute Monos (auto) 0.7 Absolute Eos (auto) 0.6 Absolute Basos (auto) 0.1 Absolute Nucleated RBC 0 Nucleated RBC % 0 Sodium 130 L Potassium 4.3 Chloride 101 Carbon Dioxide 23 Anion Gap 6 BUN 41 H Creatinine 2.68 H Est GFR ( Amer) 30.1 Est GFR (Non-Af Amer) 23.4 BUN/Creatinine Ratio 15.3 Glucose 115 H Calcium 8.9 Microbiology and Other Data: Microbiology 04/13/17 20:32 Blood Venous Aerobic Blood Culture - Preliminary No Growth Day 4 04/13/17 20:32 Blood Venous Anaerobic Blood Culture - Preliminary No Growth Day 4 04/13/17 20:32 Blood Venous Aerobic Blood Culture - Preliminary No Growth Day 4 04/13/17 20:32 Blood Venous Anaerobic Blood Culture - Preliminary No Growth Day 4 04/13/17 20:50 Urine Urine Culture - Final Vre Enterococcus Faecium 04/14/17 00:50 Nasal Nasal Screen MRSA (PCR)(CARIE) - Final Mrsa Not Detected Assess/Plan/Problems-Billing Assessment: 72 y/o male PMH EtOH Cirrhosis s/p multiple para last 4 weeks, presenting from [facility] with AMS in setting of pain med and infrequent BMs. GHADA (in setting of 12L para on 03/31 w/o albumin) on CKD, VRE Faecium terrazas colonization. Mentation back to baseline. Planned outpatient paracentesis 04/18. [facility] refused discharge 04/17 - Patient Problems (1) Alcoholic cirrhosis Current Visit: Yes Status: Acute Priority: High Code(s): K70.30 - ALCOHOLIC CIRRHOSIS OF LIVER WITHOUT ASCITES SNOMED Code(s): 306049664 Comment: Continue lactulose (currently QID from TID) but titrate to BMs ~3 soft a day. last Ammonia 92 outpatient paracentesis arranged for Friday w/ Dr. Mondragon 11:30m at [facility]. will accomplish as inpatient until accepting facility can be arranged. [employer] [employer] [facility] f/u had already been scheduled on 04/23 with [employer]. Previously with Dr. Bella of [place]. (2) UTI (urinary tract infection) Current Visit: Yes Status: Acute Comment: VRE E Faecium >100K. s/p ceftriaxone -> augmentin -> linezolid x1 to stop per ID recs. appreciated. suspicion for colonization of terrazas. (3) GHADA (acute kidney injury) Current Visit: Yes Status: Acute Priority: High Code(s): N17.9 - ACUTE KIDNEY FAILURE, UNSPECIFIED SNOMED Code(s): 17885913 Comment: Acute on chronic kidney disease. most likely 2/2 12L paracentesis w /o albumin on 03/31. vs ATN 2/2 E Faceium UTI vs increase in diuresis vs x vs hepatorenal syndrome. 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 Back to pre-para level. (4) Afib Current Visit: Yes Status: Acute Priority: High Code(s): I48.91 - UNSPECIFIED ATRIAL FIBRILLATION SNOMED Code(s): 77795721 Comment: NSR, (5) Altered mental state Current Visit: Yes Status: Acute Priority: High Code(s): R41.82 - ALTERED MENTAL STATUS, UNSPECIFIED SNOMED Code(s): 346435476 Comment: largely resolved, likely combination of hepatic encephalopathy +/- UTI. ammonia 94 continue standing lactulose, abx now stopped. planned paracentesis on 04/18 with surgery. would send cell count and cultuer to rule out SBP (6) Hyponatremia Current Visit: No Status: Acute Code(s): E87.1 - HYPO-OSMOLALITY AND HYPONATREMIA SNOMED Code(s): 14440643 Comment: Likely related to cirrhosis. slightly improved 128->130. Status and Disposition: medicine inpatient. dispo to [facility] 04/17 after paracentesis.
[2017-04-17] MEDS: Lidocaine Patch REMOVE* 1 NOTE MISC PATCH OFF SCH (21:24)
[2017-04-18] MEDS: Heparin VIAL(*) 5000 UNITS/ML VIAL (FIVE THOUSAND) SUBCUT SCH ×2 (06:04→15:07)
[2017-04-18] MEDS: Omeprazole CAP* 20 MG PO SCH (08:42)
[2017-04-18] MEDS: Aspirin EC Low Dose* 81 MG TAB.EC PO SCH (08:42)
[2017-04-18] MEDS: Lactic Acid CR 12% (NF) 1 APPLIC TUBE TOPICAL SCH (08:42)
[2017-04-18] MEDS: Multivitamins/Minerals TAB PO SCH (08:42)
[2017-04-18] MEDS: Pregabalin CAP(*) 100 MG PO SCH ×2 (08:43→12:47)
[2017-04-18] MEDS: Spironolactone TAB* 25 MG PO SCH (08:43)
[2017-04-18] MEDS: Lidocaine PATCH 5%* 1 PATCH TRANSDERM SCH (08:45)
[2017-04-18 12:40] VITALS: BP 108/67
--- NOTE | 2017-04-22 07:08 | OP ---
Amended report to change report work type. CC: Marisol [place]; Dr. Sutherland * DATE OF OPERATION: 04/18/17 - ROOM #418 Note, this is a late re-dictation as apparently the earlier dictation has been lost. DATE OF : 41 SURGEON: Freddy Mondragon MD HISTORY: Mr. Art is a known cirrhotic with recurrent ascites for whom I have done paracentesis multiple times in the past. He is here in the hospital with confusion encephalopathy and it was requested that a paracentesis be done before his discharge. DESCRIPTION OF PROCEDURE: He was brought to the procedure room. He understands the procedure and is agreeable to it. The abdomen was interrogated with ultrasound and in the same location of the right upper quadrant, a good pocket was identified for the paracentesis. Local anesthetic was administered. Skinny needle was utilized. Clear fluid was forthcoming. The paracentesis catheter was then inserted. The flow was rather erratic and after about 2 L, we were not getting that much fluid anymore. Despite repositioning of the tube , the abdomen was soft and he actually did not have symptoms of increased fluid even before the procedure, so it was decided to conclude the procedure. The catheter was removed. Bandage was placed. He tolerated this well. We will check with the medical service to see if they desire any studies on the fluid. [id number]/[facility] #: [id number] MTDD
--- NOTE | 2017-04-25 12:02 | ED ---
Saima Gonzales Gabriel, scribed for Aldo Kc MD on 04/13/17 at 2015 . Complex/Multi-Sys Presentation - HPI Summary HPI Summary: This patient is a 72 year old M BIBA to [facility] with a chief complaint of ABD distension. The patient rates the pain 0/10 in severity. Patient reports fatigue. Patient denies pain and trouble breathing. Patient has a patch on his rib that is for his rib problems and is on NC O2 at alf. - History Of Current Complaint Chief Complaint: EDAbdPain Time Seen by Provider: 04/13/17 19:59 Hx Obtained From: Patient Onset/Duration: Still Present Timing: Constant Severity Currently: Moderate Associated Signs And Symptoms: Positive: Other - trouble breathing, fatigue,. Negative: Abdominal Pain - Allergies/Home Medications Allergies/Adverse Reactions: Allergies Allergy/AdvReac Type Severity Reaction Status Date / Time metronidazole Allergy Unknown Verified 04/13/17 19:39 Reaction Details MS Doxycycline [Doxycycline] Allergy Rash Verified 04/13/17 19:38 trazodone Allergy Unknown Verified 04/13/17 19:39 Reaction Details Home Medications: Home Medications Sulfamethox/Trimethoprim DS* [Bactrim DS 800/160 TAB*] 1 tab PO BEDTIME [History Confirmed 04/13/17] PMH/Surg Hx/FS Hx/Imm Hx Endocrine/Hematology History: Denies: Hx Diabetes, Hx Thyroid Disease Cardiovascular History: Reports: Hx Atrial Fibrillation, Hx Hypertension Respiratory History: Reports: Other Respiratory Problems/Disorders - Supraglottitis Denies: Hx Asthma, Hx Chronic Obstructive Pulmonary Disease (COPD) GI History: Reports: Hx Diverticulosis Denies: Hx Ulcer History: Reports: Hx Acute Renal Failure Musculoskeletal History: Reports: Hx Rheumatoid Arthritis Comment Only: Hx Osteoporosis - ? Sensory History: Reports: Hx Contacts or Glasses Comment Only: Hx Hearing Aid - unable to obtain Opthamlomology History: Reports: Hx Contacts or Glasses Neurological History: Reports: Hx Peripheral Neuropathy - Surgical History Surgery Procedure, Year, and Place: tonsillectomy at age 4 - Immunization History Date of Tetanus Vaccine: unk Date of Influenza Vaccine: unk Infectious Disease History: No Infectious Disease History: Denies: Hx Clostridium Difficile, Hx Hepatitis, Hx Human Immunodeficiency Virus (HIV), Hx of Known/Suspected MRSA, Hx Shingles, Hx Tuberculosis, Hx Known/ Suspected VRE, Hx Known/Suspected VRSA, History Other Infectious Disease, Traveled Outside the [place] in Last 30 Days - Family History Known Family History: Negative: Cardiac Disease, Hypertension, Diabetes - Social History Alcohol Use: Daily Alcohol Amount: 1 bottle wine/ day Substance Use Type: Reports: None Smoking Status (MU): Never Smoked Tobacco Review of Systems Negative: Fever, Chills Negative: Erythema Negative: Sore Throat Negative: Chest Pain Negative: Shortness Of Breath, Cough Positive: Other - ABD distension . Negative: Abdominal Pain, Vomiting, Nausea Negative: dysuria, hematuria Negative: Myalgia, Edema Negative: Rash Neurological: Negative - dizziness All Other Systems Reviewed And Are Negative: Yes Physical Exam - Summary Physical Exam Summary: Constitutional: Well-developed, Well-nourished, Alert. (-) Distressed Skin: Warm, Dry HENT: Normocephalic; Atraumatic Eyes: Conjunctiva normal Neck: Musculoskeletal ROM normal neck. (-) JVD, (-) Stridor, (-) Tracheal deviation Cardio: Rhythm regular, rate normal, Heart sounds normal; Intact distal pulses; The pedal pulses are 2+ and symmetric. Radial pulses are 2+ and symmetric. (-) Murmur Pulmonary/Chest wall: Effort normal. (-) Respiratory distress, (-) Wheezes, (-) Rales Abd: Soft, (-) Tenderness, (-) Guarding, (-) Rebound Ascites that is soft, no tenderness, appears alert Musculoskeletal: (-) Edema Lymph: (-) Cervical adenopathy Neuro: Alert, Oriented x3 Psych: Mood and affect Normal Triage Information Reviewed: Yes Vital Signs On Initial Exam: Initial Vitals Temp Pulse Resp BP Pulse Ox 98.6 F 76 18 141/117 98 04/13/17 19:34 04/13/17 19:34 04/13/17 19:34 04/13/17 19:34 04/13/17 19:34 Vital Signs Reviewed: Yes Diagnostics - Vital Signs Vital Signs Temp Pulse Resp BP Pulse Ox 04/13/17 19:34 98.6 F 76 18 141/117 98 - Laboratory Result Diagrams: 04/13/17 20:32 04/13/17 20:32 Lab Statement: Any lab studies that have been ordered have been reviewed, and results considered in the medical decision making process. Complex Multi-Symp Course/Dx Assessment/Plan: This patient is a 72 year old M BIBA to [facility] with a chief complaint of ABD distension. The patient rates the pain 0/10 in severity. Patient reports fatigue. Patient denies ABD pain and trouble breathing. Patient has a patch on his rib that is for his rib problems and is on [place] O2 at alf. Test results with no significant abnormalities. UA/bloodwork obtained. In the ED course the patient was given *see [facility] Patient will be admitted to Dr. Faria. The patient is agreeable with this plan. - Diagnoses Provider Diagnoses: Acute on chronic renal failure, UTI (urinary tract infection), acute ascites - Physician Notifications Discussed Care Of Patient With: Jimy Abernathy Time Discussed With Above Provider: 21:40 Instructed by Provider To: Admit As Inpatient Discharge - Discharge Plan Condition: Fair Disposition: ADMITTED TO [facility] Referrals: Lawson Sutherland MD [Primary Care Provider] - 2 Days The documentation as recorded by the Saima beckwith Gabriel accurately reflects the service I personally performed and the decisions made by , Aldo Kc MD.
== END 2017-04-18 15:20 | DRG 442 ==
LOC: ED 18:54 → MED 21:37 → OBSVTOIN 04-14 11:38
PROVIDERS: ADMIT Hospitalist; ATTEND Internal Medicine
PROC: 0W9G3ZZ Drainage of Peritoneal Cavity, Percutaneous Approach (ICD-10-PCS; principal; 2017-04-18 11:30)
DX: K72.90 Hepatic failure, unspecified without coma (principal); N17.9 Acute kidney failure, unspecified; I95.9 Hypotension, unspecified; G62.9 Polyneuropathy, unspecified; I48.91 Unspecified atrial fibrillation; E87.1 Hypo-osmolality and hyponatremia; N39.0 Urinary tract infection, site not specified; K70.31 Alcoholic cirrhosis of liver with ascites; K57.90 Diverticulosis of intestine, part unspecified, without perforation or abscess without bleeding; R41.82 Altered mental status, unspecified; T40.2X5A Adverse effect of other opioids, initial encounter; Z16.21 Resistance to vancomycin; N18.9 Chronic kidney disease, unspecified; Z88.1 Allergy status to other antibiotic agents; Z79.82 Long term (current) use of aspirin; Z88.8 Allergy status to other drugs, medicaments and biological substances; Z80.0 Family history of malignant neoplasm of digestive organs; R11.10 Vomiting, unspecified; Y92.009 Unspecified place in unspecified non-institutional (private) residence as the place of occurrence of the external cause; Z22.39 Carrier of other specified bacterial diseases
CPT/HCPCS: 36415; 49082; 80048; 80053; 81003; 81015; 82140; 83605; 83690; 85025; 85610; 86140; 87040; 87070; 87077; 87086; 87186; 87205; 87641; 89051; 94760; 99284; A9270-GY; J0696; J1644

== ENCOUNTER 2017-05-08 08:53 | Emergency (ER) | payer MEDICARE ==
[2017-05-08 13:18] VITALS: BP 108/71
--- NOTE | 2017-05-08 17:43 | ED ---
Moe Gonzales Thomas, scribed for Cortes Gonzalez MD on 05/08/17 at 1051 . Complex/Multi-Sys Presentation - HPI Summary HPI Summary: The patient is a 72 year old male with a history of alcoholic liver cirrhosis presenting to the emergency department because he says he has gained seven pounds every day for the last week. The patient claims he had paracentesis performed [address] Gómez in which 1 liter of fluid was removed. However, our EMR indicates that the patient had paracentesis performed on by Dr. Mondragon at [facility] in which 2 liters were removed. The patient denies fevers, chills, constipation, and diarrhea. - History Of Current Complaint Chief Complaint: EDAbdPain Time Seen by Provider: 05/08/17 10:45 Hx Obtained From: Patient Onset/Duration: Lasting Weeks - 1, Still Present Timing: Constant Severity Initially: Moderate Alleviating Factor(s): None Associated Signs And Symptoms: Negative: Other - fever, chills, constipation, diarrhea Related History: Other - Hx of alcoholic cirrhosis - Allergies/Home Medications Allergies/Adverse Reactions: Allergies Allergy/AdvReac Type Severity Reaction Status Date / Time doxycycline Allergy Rash Verified 04/18/17 11:04 metronidazole Allergy Unknown Verified 04/18/17 11:04 Reaction Details trazodone Allergy Unknown Verified 04/18/17 11:04 Reaction Details PMH/Surg Hx/FS Hx/Imm Hx Endocrine/Hematology History: Denies: Hx Diabetes, Hx Thyroid Disease Cardiovascular History: Reports: Hx Atrial Fibrillation, Hx Hypertension Respiratory History: Reports: Other Respiratory Problems/Disorders - Supraglottitis Denies: Hx Asthma, Hx Chronic Obstructive Pulmonary Disease (COPD) GI History: Reports: Hx Cirrhosis, Hx Diverticulosis Denies: Hx Ulcer History: Reports: Hx Acute Renal Failure Musculoskeletal History: Reports: Hx Rheumatoid Arthritis Comment Only: Hx Osteoporosis - ? Sensory History: Reports: Hx Contacts or Glasses Comment Only: Hx Hearing Aid - unable to obtain Opthamlomology History: Reports: Hx Contacts or Glasses Neurological History: Reports: Hx Peripheral Neuropathy - Surgical History Surgery Procedure, Year, and Place: tonsillectomy at age 4 - Immunization History Date of Tetanus Vaccine: unk Date of Influenza Vaccine: 12/2016 Immunizations Up to Date: Yes Infectious Disease History: No Infectious Disease History: Denies: Hx Clostridium Difficile, Hx Hepatitis, Hx Human Immunodeficiency Virus (HIV), Hx of Known/Suspected MRSA, Hx Shingles, Hx Tuberculosis, Hx Known/ Suspected VRE, Hx Known/Suspected VRSA, History Other Infectious Disease, Traveled Outside the [place] in Last 30 Days - Family History Known Family History: Negative: Cardiac Disease, Hypertension, Diabetes - Social History Alcohol Use: Daily Alcohol Amount: 3-4 drinkd daily Substance Use Type: Reports: None Smoking Status (MU): Never Smoked Tobacco Review of Systems Positive: Other - Recent weight gain. Negative: Fever, Chills Negative: Diarrhea, Other - constipation All Other Systems Reviewed And Are Negative: Yes Physical Exam - Summary Physical Exam Summary: General: well-appearing, no pain distress Skin: warm, color reflects adequate perfusion, dry Head: normal Eyes: EOMI, MARCELLUS ENT: normal Neck: supple, nontender Respiratory: CTA, breath sounds present Cardiovascular: RRR Abdomen: Distended belly that moves around. Soft, nontender. Bowel: positive Musculoskeletal: strength/ROM intact Neurological: sensory/motor intact, A&O x3 Psychological: affect/mood appropriate Triage Information Reviewed: Yes Vital Signs On Initial Exam: Initial Vitals Temp Pulse Resp BP Pulse Ox 98.6 F 87 17 113/72 97 05/08/17 09:35 05/08/17 09:35 05/08/17 09:35 05/08/17 09:35 05/08/17 09:35 Vital Signs Reviewed: Yes Diagnostics - Vital Signs Vital Signs Temp Pulse Resp BP Pulse Ox 05/08/17 09:35 98.6 F 87 17 113/72 97 - Laboratory Lab Statement: Any lab studies that have been ordered have been reviewed, and results considered in the medical decision making process. Complex Multi-Symp Course/Dx Course Of Treatment: Medications reviewed. Allergies noted. DISCUSSED WITH DR CASTELAN. HE HELPED ARRANGE F/U FOR PARACENTISIS TOMORROW. - Diagnoses Provider Diagnoses: Ascites - Physician Notifications Discussed Care Of Patient With: Dinh Castelan Time Discussed With Above Provider: 12:02 Instructed by Provider To: Other - Dr. Castelan, surgery, says that he will help organize a therapeutic paracentesis tomorrow. Discharge - Discharge Plan Condition: Stable Disposition: HOME Patient Education Materials: Ascites (ED), Paracentesis (DC) Referrals: [facility] [Provider Group] Claudine Puentes NP [Primary Care Provider] - Additional Instructions: YOU ARE BEING SCHEDULED FOR PARACENTESIS TOMORROW, 05/09/17, WITH [facility], [phone]. FOLLOW UP WITH YOUR PRIMARY CARE DOCTOR. RETURN TO THE EMERGENCY DEPARTMENT FOR ANY WORSENING OF YOUR CONDITION OR QUESTIONS OR CONCERNS. The documentation as recorded by the Moe beckwith Thomas accurately reflects the service I personally performed and the decisions made by me, Cortes Gonzalez MD.
== END 2017-05-08 13:19 | disposition home or self-care (01) ==
LOC: ED 08:53
DX: K70.31 Alcoholic cirrhosis of liver with ascites (principal); Z86.79 Personal history of other diseases of the circulatory system; K70.30 Alcoholic cirrhosis of liver without ascites
CPT/HCPCS: 99282

== ENCOUNTER 2017-05-09 08:39 | Emergency (ER) | payer MEDICARE ==
--- NOTE | 2017-05-09 10:47 | RAD ---
INDICATION: Ascites COMPARISON: None TECHNIQUE: Transverse and longitudinal scans of the abdomen were performed utilizing grayscale and color Doppler imaging. FINDINGS: There is moderate ascites in all 4 quadrants. A surgeon was present to damien the skin site for planned paracentesis.
[2017-05-09 12:38] VITALS: BP 104/56
--- NOTE | 2017-05-10 08:28 | ED ---
Luzmaria Gonzales Julia, scribed for Dominic Choudhary MD on 05/09/17 at 0903 . Abdominal Pain/Male - HPI Summary HPI Summary: This patient is a 72 year old M presenting to [facility] due to diagnosis of paracentesis in the ED yesterday. He was scheduled for surgery at 09:00 today but came to the ED instead. Patient reports abdominal pain and distention. The patient rates the abdominal pain 3/10 in severity. - History of Current Complaint Chief Complaint: EDAbdPain Stated Complaint: ABD PAIN Time Seen by Provider: 05/09/17 08:53 Hx Obtained From: Patient Onset/Duration: Still Present Timing: Constant Pain Intensity: 3 Pain Scale Used: 0-10 Numeric Location: Diffuse Associated Signs And Symptoms: Positive: Other - distention Similar Episode/Dx As:: peritonitis - Allergies/Home Medications Allergies/Adverse Reactions: Allergies Allergy/AdvReac Type Severity Reaction Status Date / Time doxycycline Allergy Rash Verified 04/18/17 11:04 metronidazole Allergy Unknown Verified 04/18/17 11:04 Reaction Details trazodone Allergy Unknown Verified 04/18/17 11:04 Reaction Details PMH/Surg Hx/FS Hx/Imm Hx Endocrine/Hematology History: Denies: Hx Diabetes, Hx Thyroid Disease Cardiovascular History: Reports: Hx Atrial Fibrillation, Hx Hypertension Respiratory History: Reports: Other Respiratory Problems/Disorders - Supraglottitis Denies: Hx Asthma, Hx Chronic Obstructive Pulmonary Disease (COPD) GI History: Reports: Hx Cirrhosis, Hx Diverticulosis, Other GI Disorders - paracentesis Denies: Hx Ulcer History: Reports: Hx Acute Renal Failure Musculoskeletal History: Reports: Hx Rheumatoid Arthritis Comment Only: Hx Osteoporosis - ? Sensory History: Reports: Hx Contacts or Glasses Comment Only: Hx Hearing Aid - unable to obtain Opthamlomology History: Reports: Hx Contacts or Glasses Neurological History: Reports: Hx Peripheral Neuropathy - Surgical History Surgery Procedure, Year, and Place: tonsillectomy at age 4 - Immunization History Date of Tetanus Vaccine: unk Date of Influenza Vaccine: 12/2016 Infectious Disease History: No Infectious Disease History: Denies: Hx Clostridium Difficile, Hx Hepatitis, Hx Human Immunodeficiency Virus (HIV), Hx of Known/Suspected MRSA, Hx Shingles, Hx Tuberculosis, Hx Known/ Suspected VRE, Hx Known/Suspected VRSA, History Other Infectious Disease, Traveled Outside the [place] in Last 30 Days - Family History Known Family History: Negative: Cardiac Disease, Hypertension, Diabetes - Social History Alcohol Use: Daily Alcohol Amount: 3-4 drinkd daily Substance Use Type: Reports: None Smoking Status (MU): Never Smoked Tobacco Review of Systems Negative: Fever Gastrointestinal: Other - distention Positive: Abdominal Pain All Other Systems Reviewed And Are Negative: Yes Physical Exam - Summary Physical Exam Summary: Appearance: The patient is well-nourished in no acute distress and in no acute pain. Skin: The skin is warm and dry and skin color reflects adequate perfusion. HEENT: The head is normocephalic and atraumatic. The pupils are equal and reactive. The conjunctivae are clear and without drainage. Nares are patent and without drainage. Mouth reveals moist mucous membranes and the throat is without erythema and exudate. The external ears are intact. The ear canals are patent and without drainage. The tympanic membranes are intact. Neck: the neck is supple with full range of motion and non-tender. There are no carotid bruits. There is no neck vein distension. Respiratory: Chest is non-tender. Lungs are clear to auscultation and breath sounds are symmetrical and equal. Cardiovascular: Heart is regular rate and rhythm. There is no murmur or rub auscultated. There is no peripheral edema and pulses are symmetrical and equal. Abdomen: The abdomen is distended. There are normal bowel sounds heard in all four quadrants and there is no organomegaly palpated. Musculoskeletal: There is no back tenderness noted. Extremities are non-tender with full range of motion. There is good capillary refill. There is no peripheral edema or calf tenderness elicited. Neurological: Patient is alert and oriented to person, place and time. The patient has symmetrical motor strength in all four extremities. Cranial nerves are grossly intact. Deep tendon reflexes are symmetrical and equal in all four extremities. Psychiatric: The patient has an appropriate affect and does not exhibit any anxiety or depression. Triage Information Reviewed: Yes Vital Signs On Initial Exam: Initial Vitals Temp Pulse Resp BP Pulse Ox 96.7 F 84 24 107/63 95 05/09/17 08:41 05/09/17 08:41 05/09/17 08:41 05/09/17 08:41 05/09/17 08:41 Vital Signs Reviewed: Yes Diagnostics - Vital Signs Vital Signs Temp Pulse Resp BP Pulse Ox 05/09/17 08:41 96.7 F 84 24 107/63 95 - Laboratory Lab Statement: Any lab studies that have been ordered have been reviewed, and results considered in the medical decision making process. Abdominal Pain Fem Course/Dx - Course Course Of Treatment: Mr. Winchester was supposed to have an outpatient paracentesis but came to the ED instead. He has no new C/O. Dr. Neves was consulted and Dr. West came down and performed the paracentesis. - Diagnoses Provider Diagnoses: Ascites - Provider Notifications Discussed Care Of Patient With: Perez West - surgery Time Discussed With Above Provider: 09:31 Instructed by Provider To: MD Will See In ED - will perform drainage in ED Discharge - Discharge Plan Condition: Stable Disposition: HOME Patient Education Materials: Ascites (ED) Referrals: Perez West MD [Medical Doctor] - (Follow up as previously scheduled. ) The documentation as recorded by the Luzmaria beckwith Julia accurately reflects the service I personally performed and the decisions made by , Dominic Choudhary MD.
== END 2017-05-09 12:29 | disposition home or self-care (01) ==
LOC: ED 08:39
DX: R18.8 Other ascites (principal); I48.91 Unspecified atrial fibrillation; I10 Essential (primary) hypertension; G62.9 Polyneuropathy, unspecified
CPT/HCPCS: 49082; 76705; 99284

== ENCOUNTER → 2017-05-29 09:20 | Day surgery (SDC) | payer MEDICARE ==
[~2017-05-29 09:20] MED LIST: Lidocaine 1% INJ* 10 MG/ML 30 ML SDV ONE
--- NOTE | 2017-05-30 01:58 | OP ---
CC: [facility] * DATE OF OPERATION: 05/29/17 - SDS DATE OF : 41 SURGEON: Freddy Mondragon MD CLERK RATING: None. ANESTHESIOLOGIST: None. PRE-OP DIAGNOSIS: Recurrent ascites. POST-OP DIAGNOSIS: Recurrent ascites. OPERATIVE PROCEDURE: Sonographically-guided paracentesis. DESCRIPTION OF PROCEDURE: The patient is supine on the stretcher in the procedure room. The right side of the abdomen was interrogated with an ultrasound probe and a location with a good pocket of fluid was identified in the right upper quadrant. Local anesthetic was administered after ChloraPrep and sterile drapes and skinny needle confirmed fluid and the thoracentesis/ paracentesis catheter was placed. This is an 8-Tajik catheter placed without difficulty. Suction bottles were used to acquire the ascites fluid and ultimately approximately 10 L of fluid was forthcoming. The catheter was then removed. Bandage was placed. He tolerated the procedure well. There were no complications. No drains. No pathologic specimen. He will be discharged back to the snf. [id number]/[facility] #: [id number] [facility]
== END | disposition home or self-care (01) ==
LOC: OR 09:20
PROVIDERS: ATTEND Surgery
DX: K70.31 Alcoholic cirrhosis of liver with ascites (principal); R14.0 Abdominal distension (gaseous); I10 Essential (primary) hypertension; I48.91 Unspecified atrial fibrillation
CPT/HCPCS: 49082

== ENCOUNTER → 2017-06-10 15:58 | Day surgery (SDC) | payer MEDICARE ==
--- NOTE | 2017-06-11 13:33 | OP ---
CC: [facility] * DATE OF OPERATION: 06/10/17 - SDS DATE OF : 41 SURGEON: Freddy Mondragon MD SHEET COMBINING OPERATOR: None. ANESTHESIOLOGIST: None. PRE-OP DIAGNOSIS: Cirrhotic ascites. POST-OP DIAGNOSIS: Cirrhotic ascites. OPERATIVE PROCEDURE: Paracentesis with sonographic guidance. DESCRIPTION OF PROCEDURE: The patient was supine on the stretcher in the procedure room. Ultrasound was carried out and a large pocket was identified in the right upper quadrant. The area was prepped with antiseptic and draped in sterile fashion. Local infiltrative anesthesia was administered. Skinny needle used to identify typical ascites fluid. The paracentesis catheter was then advanced into the peritoneal space and suction bottle was used to extract a total of about 11 L of ascites fluid. He tolerated this well. The catheter was removed. Bandage was placed. [facility] and will follow up p.r.nHiren [id number]/[facility] #: [id number] JARAD
== END | disposition home or self-care (01) ==
LOC: OR 15:58
PROVIDERS: ATTEND Surgery
DX: K70.31 Alcoholic cirrhosis of liver with ascites (principal); R06.09 Other forms of dyspnea; N18.9 Chronic kidney disease, unspecified; G62.9 Polyneuropathy, unspecified; I48.91 Unspecified atrial fibrillation
CPT/HCPCS: 49082

== ENCOUNTER → 2017-06-26 09:59 | Day surgery (SDC) | payer MEDICARE ==
[2017-06-26 10:14] VITALS: BP 92/64
--- NOTE | 2017-06-26 21:41 | OP ---
CC: Dr. Freddy Mondragon; [facility] OPERATIVE REPORT: DATE OF OPERATION: 06/26/17 DATE OF : 41 SURGEON: Freddy Mondragon MD. HUMAN SERVICES WORKER: None. ANESTHESIOLOGIST: None. PRE-OP DIAGNOSIS: Ascites. POST-OP DIAGNOSIS: Ascites. OPERATIVE PROCEDURE: Sonographically-guided paracentesis. DESCRIPTION OF PROCEDURE: Patient was supine on the stretcher. Bedside sonography was carried out a nd left upper quadrant has a large pocket of fluid, at least 5 cm, and this was marked and then the a beverly was prepped with antiseptic, draped in sterile fashion. Local infiltrative anesthesia was admini stered. Skinny needle aspirates typical pro fluid. Then, the thoracentesis catheter was placed at the same site and again pro fluid was forthcoming. Suction bottles were utilized and a total of a bout 10 L of fluid was withdrawn. He tolerated this well. Catheter was removed. Bandage was placed . [facility] was [facility] to the [facility]. I will be happy to see him back in the future should the need arise. [id number]/[facility] #: [id number]
== END | disposition home or self-care (01) ==
LOC: OR 09:59
PROVIDERS: ATTEND Surgery
DX: R18.8 Other ascites (principal); K70.40 Alcoholic hepatic failure without coma; N18.9 Chronic kidney disease, unspecified; I48.91 Unspecified atrial fibrillation; R63.0 Anorexia
CPT/HCPCS: 49082

== ENCOUNTER 2017-07-17 02:12 | Inpatient (IN) | payer MEDICARE ==
[2017-07-17] MEDS ORDERED: Lactulose 300 ML for PR* 10 GM/15 ML BTL PR SCH ×3 (03:00→09:00)
[2017-07-17] MEDS ORDERED: cefoTAXime(*) 2,000 MG in NS 0.9% 50 ML* 50 ML IVPB SCH ×3 (03:10→18:00)
[2017-07-17 03:13] LABS: ABS Basophils 0.1 10^3/ul (0-0.2); ABS Eosinophils 0.1 10^3/ul (0-0.6); ABS Lymphocytes 1.8 10^3/ul (1.0-4.8); ABS Monocytes 0.9 10^3/ul (0-0.8); ABS Neutrophils 9.8 10^3/ul (1.5-7.7); ABS Nucleated RBC 0 10^3/ul; Eosinophil % 0.4 % (0-6); Hematocrit 33 % (42-52); Mean Corpuscular HGB Conc 34 g/dl (31-36); Mean Corpuscular Hemoglobin 30 pg (27-31); Mean Corpuscular Volume 88 fL (80-94); Mean Platelet Volume 7.9 um3 (7.4-10.4); Nucleated Red Blood Cells % 0; Platelet Count 211 10^3/ul (150-450); Red Blood Count 3.69 10^6/ul (4.0-5.4); Red Cell Distribution Width 15 % (10.5-15); White Blood Count 12.6 10^3/ul (3.5-10.8)
[2017-07-17 03:19] LABS: INR 1.08 (0.77-1.02)
[2017-07-17] MEDS ORDERED: Levofloxacin 750 MG IVPREMIX(* 750 MG/150 ML BAG IVPB STA (03:20)
[2017-07-17 03:30] LABS: EGFR Non-African American 21.5 (>60)
[2017-07-17] MEDS ORDERED: Ondansetron INJ* 2 MG/ML VIAL IV PRN (03:40)
[2017-07-17 03:43] LABS: Urine Appearance Cloudy; Urine Color Yellow; Urine Specific Gravity 1.016 (1.010-1.030)
[2017-07-17 03:44] LABS: Urine Blood 3+ (Negative); Urine Ketones Negative (Negative); Urine Protein 2+(100 mg/dL) (Negative); Urine Urobilinogen Negative (Negative)
[2017-07-17] MEDS: Heparin VIAL(*) 5000 UNITS/ML VIAL (FIVE THOUSAND) SUBCUT SCH ×3 (06:21→21:11)
--- NOTE | 2017-07-17 06:30 | ED ---
Luis Fernando Gonzales Rebecca, scribed for Cortes Gonzalez MD on 07/17/17 at 0239 . Altered Mental Status - HPI Summary HPI Summary: Pt is a 72 y/o M BIBA from [facility] who presents to ED due to decreased responsiveness. Per nurse's triage, the pt was "not himself tonight." At baseline, pt is alert and oriented. PMHx hepatic encephalopathy, A Fib, HTN. Level 5 caveat - no Hx is obtainable from pt secondary to AMS. - History Of Current Complaint Chief Complaint: EDAltMentalStatus Stated Complaint: WEAKNESS Hx Obtained From: Medical Records Character: Responsiveness - Decerased - Allergies/Home Medications Allergies/Adverse Reactions: Allergies Allergy/AdvReac Type Severity Reaction Status Date / Time doxycycline Allergy Rash Verified 07/17/17 03:35 meperidine [From Demerol] Allergy see note Verified 07/17/17 03:35 metronidazole Allergy Unknown Verified 07/17/17 03:35 Reaction Details trazodone Allergy Unknown Verified 07/17/17 03:35 Reaction Details PMH/Surg Hx/FS Hx/Imm Hx Endocrine/Hematology History: Denies: Hx Diabetes, Hx Thyroid Disease Cardiovascular History: Reports: Hx Atrial Fibrillation, Hx Hypertension Respiratory History: Reports: Other Respiratory Problems/Disorders - Supraglottitis Denies: Hx Asthma, Hx Chronic Obstructive Pulmonary Disease (COPD) GI History: Reports: Hx Cirrhosis, Hx Diverticulosis, Other GI Disorders - paracentesis Denies: Hx Ulcer History: Reports: Hx Acute Renal Failure Musculoskeletal History: Reports: Hx Rheumatoid Arthritis Comment Only: Hx Osteoporosis - ? Sensory History: Reports: Hx Contacts or Glasses Denies: Hx Hearing Aid Opthamlomology History: Reports: Hx Contacts or Glasses Neurological History: Reports: Hx Peripheral Neuropathy - Surgical History Surgery Procedure, Year, and Place: tonsillectomy at age 4 - Immunization History Date of Tetanus Vaccine: unk Date of Influenza Vaccine: 12/2016 Infectious Disease History: Unable to Obtain/Confirm Infectious Disease History: Denies: Hx Clostridium Difficile, Hx Hepatitis, Hx Human Immunodeficiency Virus (HIV), Hx of Known/Suspected MRSA, Hx Shingles, Hx Tuberculosis, Hx Known/ Suspected VRE, Hx Known/Suspected VRSA, History Other Infectious Disease, Traveled Outside the [place] in Last 30 Days - Family History Known Family History: Negative: Cardiac Disease, Hypertension, Diabetes - Social History Alcohol Use: Daily Alcohol Amount: Patient reports 3-4 drinks daily Hx Substance Use: No Substance Use Type: Reports: None Hx Tobacco Use: No Smoking Status (MU): Never Smoked Tobacco Review of Systems Positive: Other - Decreased responsiveness All Other Systems Reviewed And Are Negative: No - Comments Additional Review of Systems Comments: Level 5 caveat - no Hx is obtainable from pt secondary to AMS. Physical Exam - Summary Physical Exam Summary: General: patient is making grunting sounds Skin: warm, color reflects adequate perfusion, dry Head: normal Eyes: EOMI, MARCELLUS ENT: normal Neck: supple, nontender Respiratory: CTA, breath sounds present Cardiovascular: Tachycardic Abdomen: soft, nontender, distended Bowel: present Musculoskeletal: strength/ROM intact, bilateral pedal edema Triage Information Reviewed: Yes Vital Signs On Initial Exam: Initial Vitals Temp Pulse Resp BP Pulse Ox 99.1 F 108 20 125/83 97 07/17/17 02:25 07/17/17 02:25 07/17/17 02:25 07/17/17 02:25 07/17/17 02:25 Vital Signs Reviewed: Yes Completion Of Physical Exam Limited Due To: Level 5 - Level 5 caveat - no Hx is obtainable from pt secondary to AMS. Diagnostics - Vital Signs Vital Signs Temp Pulse Resp BP Pulse Ox 07/17/17 02:25 99.1 F 108 20 125/83 97 - Laboratory Lab Results: Lab Results 07/17/17 07/17/17 07/17/17 Range/Units 02:44 02:44 02:44 WBC 12.6 H (3.5-10.8) 10^3/ul RBC 3.69 L (4.0-5.4) 10^6/ul Hgb 11.0 L (14.0-18.0) g/dl Hct 33 L (42-52) % MCV 88 (80-94) fL MCH 30 (27-31) pg MCHC 34 (31-36) g/dl RDW 15 (10.5-15) % Plt Count 211 (150-450) 10^3/ul MPV 7.9 (7.4-10.4) um3 Neut % (Auto) 77.8 (38-83) % Lymph % (Auto) 14.0 L (25-47) % Owen % (Auto) 7.0 (0-7) % Eos % (Auto) 0.4 (0-6) % Baso % (Auto) 0.8 (0-2) % Absolute Neuts (auto) 9.8 H (1.5-7.7) 10^3/ul Absolute Lymphs (auto) 1.8 (1.0-4.8) 10^3/ul Absolute Monos (auto) 0.9 H (0-0.8) 10^3/ul Absolute Eos (auto) 0.1 (0-0.6) 10^3/ul Absolute Basos (auto) 0.1 (0-0.2) 10^3/ul Absolute Nucleated RBC 0 10^3/ul Nucleated RBC % 0 INR (Anticoag Therapy) 1.08 H (0.77-1.02) APTT 34.4 (26.0-36.3) seconds Sodium 130 L (139-145) mmol/L Potassium 5.1 H (3.5-5.0) mmol/L Chloride 100 L (101-111) mmol/L Carbon Dioxide 19 L (22-32) mmol/L Anion Gap 11 (2-11) mmol/L BUN 69 H (6-24) mg/dL Creatinine 2.89 H (0.67-1.17) mg/dL Est GFR ( Amer) 27.6 (>60) Est GFR (Non-Af Amer) 21.5 (>60) BUN/Creatinine Ratio 23.9 H (8-20) Glucose 129 H (70-100) mg/dL Lactic Acid (0.5-2.0) mmol/L Calcium 8.7 (8.6-10.3) mg/dL Magnesium 2.4 (1.9-2.7) mg/dL Total Bilirubin 0.90 (0.2-1.0) mg/dL AST 44 H (13-39) U/L ALT 11 (7-52) U/L Alkaline Phosphatase 207 H (34-104) U/L Ammonia (16-53) mcmol/L Total Creatine Kinase 38 (10-223) U/L CK-MB (CK-2) 4.1 (0.6-6.3) ng/mL Troponin I 0.04 H* (<0.04) ng/mL C-Reactive Protein 45.19 H (< 5.00) mg/L B-Natriuretic Peptide ( - 100) pg/mL Total Protein 6.8 (6.4-8.9) g/dL Albumin 2.5 L (3.2-5.2) g/dL Globulin 4.3 H (2-4) g/dL Albumin/Globulin Ratio 0.6 L (1-3) Lipase 51 (11.0-82.0) U/L TSH 1.83 (0.34-5.60) mcIU/mL Urine Color Urine Appearance Urine pH (5-9) Ur Specific [place] (1.010-1.030) Urine Protein (Negative) Urine Ketones (Negative) Urine Blood (Negative) Urine Nitrate (Negative) Urine Bilirubin (Negative) Urine Urobilinogen (Negative) Ur Leukocyte Esterase (Negative) Urine WBC (Auto) (Absent) Urine RBC (Auto) (Absent) Amorphous Crystals (Absent) Urine Glucose (Negative) Urine Ascorbic Acid (Negative) Acetaminophen < 15 mcg/mL Serum Alcohol < 10 (<10) mg/dL 07/17/17 07/17/17 07/17/17 Range/Units 02:44 02:44 03:23 WBC (3.5-10.8) 10^3/ul RBC (4.0-5.4) 10^6/ul Hgb (14.0-18.0) g/dl Hct (42-52) % MCV (80-94) fL MCH (27-31) pg MCHC (31-36) g/dl RDW (10.5-15) % Plt Count (150-450) 10^3/ul MPV (7.4-10.4) um3 Neut % (Auto) (38-83) % Lymph % (Auto) (25-47) % Owen % (Auto) (0-7) % Eos % (Auto) (0-6) % Baso % (Auto) (0-2) % Absolute Neuts (auto) (1.5-7.7) 10^3/ul Absolute Lymphs (auto) (1.0-4.8) 10^3/ul Absolute Monos (auto) (0-0.8) 10^3/ul Absolute Eos (auto) (0-0.6) 10^3/ul Absolute Basos (auto) (0-0.2) 10^3/ul Absolute Nucleated RBC 10^3/ul Nucleated RBC % INR (Anticoag Therapy) (0.77-1.02) APTT (26.0-36.3) seconds Sodium (139-145) mmol/L Potassium (3.5-5.0) mmol/L Chloride (101-111) mmol/L Carbon Dioxide (22-32) mmol/L Anion Gap (2-11) mmol/L BUN (6-24) mg/dL Creatinine (0.67-1.17) mg/dL Est GFR ( Amer) (>60) Est GFR (Non-Af Amer) (>60) BUN/Creatinine Ratio (8-20) Glucose (70-100) mg/dL Lactic Acid 2.0 (0.5-2.0) mmol/L Calcium (8.6-10.3) mg/dL Magnesium (1.9-2.7) mg/dL Total Bilirubin (0.2-1.0) mg/dL AST (13-39) U/L ALT (7-52) U/L Alkaline Phosphatase (34-104) U/L Ammonia 216 H (16-53) mcmol/L Total Creatine Kinase (10-223) U/L CK-MB (CK-2) (0.6-6.3) ng/mL Troponin I (<0.04) ng/mL C-Reactive Protein (< 5.00) mg/L B-Natriuretic Peptide 57 ( - 100) pg/mL Total Protein (6.4-8.9) g/dL Albumin (3.2-5.2) g/dL Globulin (2-4) g/dL Albumin/Globulin Ratio (1-3) Lipase (11.0-82.0) U/L TSH (0.34-5.60) mcIU/mL Urine Color Yellow Urine Appearance Cloudy Urine pH 5 (5-9) Ur Specific [place] 1.016 (1.010-1.030) Urine Protein 2+(100 mg/dl) A (Negative) Urine Ketones Negative (Negative) Urine Blood 3+ A (Negative) Urine Nitrate Negative (Negative) Urine Bilirubin Negative (Negative) Urine Urobilinogen Negative (Negative) Ur Leukocyte Esterase 3+ A (Negative) Urine WBC (Auto) Trace(0-5/hpf) (Absent) Urine RBC (Auto) 3+(>10/hpf) A (Absent) Amorphous Crystals Present A (Absent) Urine Glucose Negative (Negative) Urine Ascorbic Acid (Negative) Acetaminophen mcg/mL Serum Alcohol (<10) mg/dL Result Diagrams: 07/17/17 02:44 07/17/17 02:44 Lab Statement: Any lab studies that have been ordered have been reviewed, and results considered in the medical decision making process. - Radiology CXR Radiology Interpretation Completed By: ED Physician - Poor inspiration. Some haziness to the left side. - CT CT Brain CT Interpretation: No Acute Changes - No acute findings. ED physician erviewed this radiology report. CT Interpretation Completed By: Radiologist - EKG 0249 Cardiac Rate: Tachycardia - 109 bpm EKG Rhythm: Sinus Tachycardia ST Segment: Normal EKG Interpretation: Low voltage. Normal ST. Altered Mental Statu Course/Dx - Course Course Of Treatment: ADMIT HOSPITALIST Assessment/Plan: Medications reviewed. Allergies noted. - Diagnoses Provider Diagnoses: Hepatic encephalopathy, Altered mental state - Provider Notifications Discussed Care Of Patient With: Mariia Guerrero Time Discussed With Above Provider: 03:07 Instructed by Provider To: Other - Recommended a brain CT, then once there are more results she will come down. Accepts pt for admission. - Critical Care Time Critical Care Time: 30-74 min Discharge - Sign-Out/Discharge Documenting (check all that apply): Discharge/Admit/Transfer - Admit - Discharge Plan Condition: Guarded Disposition: ADMITTED TO [facility] - Billing Disposition and Condition Condition: GUARDED Disposition: [facility] The documentation as recorded by the Luis Fernando beckwith Rebecca accurately reflects the service I personally performed and the decisions made by me, Cortes Gonzalez MD.
--- NOTE | 2017-07-17 08:01 | RAD ---
INDICATION: Altered mental status COMPARISON: June 14, 2017 TECHNIQUE: An AP portable view obtained at 0233 hours is submitted. FINDINGS: Bones/Soft Tissues: There are no acute bony findings. Cardiomediastinal: The cardiomediastinal silhouette is normal. Lungs: There are no infiltrates. Pleura: There are no pleural effusions. Other: None IMPRESSION: NO ACTIVE DISEASE.
--- NOTE | 2017-07-17 08:08 | RAD ---
INDICATION: Altered mental status COMPARISON: Most recent comparison CT of the brain is dated June 14, 2017 TECHNIQUE: Contiguous axial sections of the brain were obtained from the skull base to the vertex without contrast. FINDINGS: The ventricles, cisterns and sulci are within normal limits. The boggs-white matter differentiation is adequately maintained and there is no sulcal effacement. No significant focal abnormality or mass effect is present. There is no evidence for intracranial hemorrhage. No significant focal osseous abnormality is present. The visualized portion of the paranasal sinuses appear clear. The mastoid air cells are well aerated bilaterally. IMPRESSION: Normal CT of the brain.
--- NOTE | 2017-07-17 08:09 | RAD ---
INDICATION: Abdominal distention COMPARISON: Similar radiograph dated March 27, 2017 TECHNIQUE: views the abdomen were obtained. FINDINGS: Overlying the left abdomen there are partially air-filled loops of bowel measuring 3 cm in diameter. The morphology of the bowel is consistent with valvular conniventes indicating small bowel as opposed to colon. IMPRESSION: DILATED LOOPS OF PARTIALLY AIR-FILLED SMALL BOWEL MEASURE UP TO 3 CM IN DIAMETER. THIS COULD BE DUE TO PARTIAL BOWEL OBSTRUCTION.
--- NOTE | 2017-07-17 09:14 | HP ---
CC: Claudine Puentes NP at [facility].* HISTORY AND PHYSICAL: DATE OF ADMISSION: 07/17/17. TIME OF EVALUATION: 0300. PRIMARY CARE PHYSICIAN: Claudine Puentes NP at [facility]. CHIEF COMPLAINT: Altered mental status. HISTORY OF PRESENT ILLNESS: This is a 72-year-old male with a past medical history of hepatic encephalopathy and cirrhosis secondary to alcohol use, who presented from [facility] after being found unresponsive to verbal and physical stimuli. The patient was also noted throughout the day to be coughing with exhalation. He did have a fall earlier on the around 1400. Around that time, there was no complaints of injury. The patient was recently admitted a month ago with confusion, found to have a urinary tract infection with encephalopathy. It appears his last paracentesis was done on and they took out more than 4 L. In the emergency room, the patient had labs and imaging. He was given Levaquin and was referred to the hospitalist service for further evaluation. On my encounter, the patient is unresponsive, unable answer questions, follow commands, thus unable to obtain a review of systems. PAST MEDICAL HISTORY: 1. Cirrhosis secondary to alcohol, CKD. 2. Atrial fibrillation. 3. Neuropathy. 4. History of hyponatremia. 5. GERD. MEDICATIONS: 1. Lyrica 50 mg p.o. t.i.d. 2. Prostat liquid 15 mL four times a day. 3. Zolpidem 5 mg at bedtime. 4. Aspirin 81 mg p.o. daily. 5. Multivitamin daily. 6. Vitamin B complex daily. 7. Lasix 20 mg daily for ascites. 8. Spironolactone 50 mg daily. 9. Bengay patch. 10. Pantoprazole 40 mg p.o. daily. 11. Lactulose 30 mL four times a day. 12. Guaifenesin 5 mL q.4 hours as needed for cough. 13. Tessalon Perles 5 mg every hour as needed for cough. ALLERGIES: DOXYCYCLINE, DEMEROL, METRONIDAZOLE, and TRAZODONE. FAMILY HISTORY: Per prior records, the mother is from lymphoma and father from colon cancer. SOCIAL HISTORY: Per prior records, the patient resides at [facility]. He is a retired professor of [employer]. He is . He has two children. According to his healthcare proxy documentation, his two sons are his healthcare proxy, Joe Art and Perez Art. Joe Art' s phone number is [phone]. Perez Art's number that is in the system is not working. The brother is going to call me back to give me another phone number. The patient has no smoking history per his last admission in June. He quit alcohol in the last year. No recreational drugs. Code status: I confirmed with the son that he would like to remain a DNR/DNI with a trial of noninvasive ventilation. REVIEW OF SYSTEMS: Unable to obtain due to the patient's altered mental status. PHYSICAL EXAMINATION GENERAL: The patient is somnolent with intermittent periods of coughing and tachypnea. He seems to respond to voice, but does not make any appropriate interaction. VITAL SIGNS: Temp 98.1, pulse 108, respiratory rate 21, oxygen saturation 94% on 3 L, and blood pressure 119/78. HEENT: Head is normocephalic. I do notice a subtle right-sided facial droop. Pupils are reactive, but sluggish. Oropharynx: Mucous membranes are dry NECK: Supple. RESPIRATORY: Diminished breath sounds. Intermittent tachypnea. Poor respiratory effort. CARDIAC: Tachycardia. Soft systolic murmur heard throughout. ABDOMEN: Distended, soft. Fluid wave present. Hypoactive bowel sounds. No grimacing or reaction with palpation. EXTREMITIES: Cool with +1 pretibial edema. +1 DPs. He has scattered excoriated skin tears on his lower extremities. NEUROLOGIC: The patient is alert and oriented x0. I have not really appreciated any spontaneous movement of his extremities. DIAGNOSTIC STUDIES/LABORATORY DATA: White count 12.6, hemoglobin 11, hematocrit 33, platelets 211. INR is 1.08. Sodium 130, potassium 5.1, chloride 100, bicarb 19, BUN 69, creatinine 2.89, glucose 129, AST 44, ALT 11, alk phos 207, ammonia 216, troponin 0.04. Albumin is 2.5, TSH is 1.83. UA shows +3 blood, +3, leukocytes. Toxicology with negative alcohol. Radiographic Data: The patient's chest x-ray wet read, rotated, no appreciable findings. EKG low voltage, sinus tachycardia with a rate of 109. Head CT results are pending. ASSESSMENT: This is a 72-year-old male with a past medical history of hepatic encephalopathy and cirrhosis secondary to alcohol use, who presents to the emergency room at [facility] for somnolence, altered mental status. Altered mental status. Assessment: The patient's altered mental status appears multifactorial. He appears to have hepatic encephalopathy. The etiology behind this as one would think could be compliant in the [facility], could be triggered by sepsis infection, also concern would be mainly for SBP, as he does have a white count. However, his abdomen does appear to be benign. He is coughing. He may have had an aspiration event as well. There is also some noted subtle facial asymmetries, could have had a stroke. Plan: We will admit him to the ICU and going to follow up on his head CT. We will get abdominal films and get an ABG as well to rule out hypercapnia. We will continue him on the lactulose per rectum and broad-spectrum antibiotics for now. I did speak with his son, Joe Art to confirm that he is a DNR/ DNI and updated him of the admission to the intensive care unit. CHRONIC MEDICAL PROBLEMS: 1. Due to the patient's somnolence, I am going to hold all of his home regimen at this time. 2. Fluids, electrolytes, nutrition: We will keep him NPO. He will need a swallow evaluation prior to proceeding with p.o. We will hold off on fluids at this time. May consider gentle fluid bolusing throughout the evening if he becomes hemodynamically unstable. 3. Code status: It is confirmed that he is a DNR/DNI. PATIENT TIME: Greater than 60 minutes was spent doing the history and physical , more than half the time was spent in direct patient care, critical care time and speaking with the family. [id number]/CPS #: [id number] JARAD
--- NOTE | 2017-07-17 10:44 | RAD ---
Indication: NG tube placement. Single frontal view of the chest performed at 0955 hours was reviewed. Comparison is made with previous exam dated July 17, 2017. No mediastinal shift is noted. Heart is enlarged. Elevated right hemidiaphragm is noted. Nasogastric tube tip appears to be within the stomach. IMPRESSION: NG TUBE APPEARS TO BE WITHIN THE STOMACH.
[2017-07-17] MEDS: RiFAXimin* 550 MG TAB FEED TUBE SCH ×2 (11:00→21:00)
[2017-07-17] MEDS: Furosemide TAB* 20 MG NG TUBE SCH (11:00)
[2017-07-17] MEDS: Vitamin B Complex TAB FEED TUBE SCH (11:00)
[2017-07-17 12:25] LABS: EGFR Non-African American 22.5 (>60)
--- NOTE | 2017-07-17 14:50 | PN ---
Subjective Date of Service: 07/17/17 Interval History: HOSPITALIST PROGRESS NOTE Patient seen and examined at bedside. He's responsive to painful stimuli only. Family History: Unchanged from Admission Social History: Unchanged from Admission Past Medical History: Unchanged from Admission Objective Active Medications: Furosemide (Lasix Tab*) 20 mg NG TUBE DAILY [facility] Last Admin: 07/17/17 11:00 Dose: 20 mg Heparin Sodium (Porcine) (Heparin Vial(*)) 5,000 units SUBCUT Q8HR [facility] Last Admin: 07/17/17 13:53 Dose: 5,000 units Levofloxacin/Dextrose (Levaquin 750 Mg Ivpremix(*)) 750 mg in 150 mls @ 100 mls /hr IVPB Q48H [facility] Lactulose (Lactulose*) 30 ml NG TUBE QID [facility] Last Admin: 07/17/17 13:53 Dose: 30 ml Ondansetron HCl (Zofran Inj*) 4 mg IV Q4H PRN PRN Reason: NAUSEA/VOMITING Rifaximin (Xifaxan*) 550 mg FEED TUBE BID [facility] Last Admin: 07/17/17 11:00 Dose: 550 mg Spironolactone (Aldactone Tab*) 50 mg NG TUBE DAILY@1600 [facility] Vitamin B Complex/Vitamin E (B Complex-50*) 1 tab FEED TUBE DAILY [facility] Last Admin: 07/17/17 11:00 Dose: 1 tab Vital Signs - 8 hr 07/17/17 07/17/17 07/17/17 06:45 07:00 07:01 Temperature 97.3 F 97.2 F 97.2 F Pulse Rate 89 88 87 Respiratory 16 15 17 Rate Blood Pressure 88/60 95/66 (mmHg) O2 Sat by Pulse 94 94 97 Oximetry 07/17/17 07/17/17 07/17/17 07:15 07:32 07:45 Temperature 97.2 F 97.0 F 97.0 F Pulse Rate 87 79 81 Respiratory 17 14 17 Rate Blood Pressure 83/59 95/67 90/70 (mmHg) O2 Sat by Pulse 94 94 96 Oximetry 07/17/17 07/17/17 07/17/17 08:00 08:01 08:16 Temperature 97.0 F 97.0 F 96.8 F Pulse Rate 82 83 Respiratory 14 15 15 Rate Blood Pressure 92/63 91/61 (mmHg) O2 Sat by Pulse 96 97 Oximetry 07/17/17 07/17/17 07/17/17 08:32 08:45 09:00 Temperature 96.8 F 96.6 F 96.6 F Pulse Rate 81 81 80 Respiratory 16 15 14 Rate Blood Pressure 90/62 91/59 94/70 (mmHg) O2 Sat by Pulse 97 96 97 Oximetry 07/17/17 07/17/17 07/17/17 09:01 09:17 09:20 Temperature 96.6 F 96.4 F 96.4 F Pulse Rate 81 89 Respiratory 14 21 Rate Blood Pressure 100/70 (mmHg) O2 Sat by Pulse 97 93 Oximetry 07/17/17 07/17/17 07/17/17 10:00 10:01 11:00 Temperature 95.9 F 96.1 F 96.3 F Pulse Rate 91 80 81 Respiratory 18 15 16 Rate Blood Pressure 106/70 95/72 (mmHg) O2 Sat by Pulse 93 93 Oximetry 07/17/17 07/17/17 07/17/17 11:01 12:00 12:02 Temperature 96.3 F 96.4 F 96.4 F Pulse Rate 82 96 89 Respiratory 17 16 15 Rate Blood Pressure 97/66 (mmHg) O2 Sat by Pulse 93 91 94 Oximetry 07/17/17 07/17/17 07/17/17 13:00 13:01 13:39 Temperature 96.4 F 96.4 F 95.9 F Pulse Rate 79 83 77 Respiratory 18 43 16 Rate Blood Pressure 96/61 97/64 (mmHg) O2 Sat by Pulse 96 97 91 Oximetry 07/17/17 14:00 Temperature 96.4 F Pulse Rate 82 Respiratory 14 Rate Blood Pressure 103/79 (mmHg) O2 Sat by Pulse 98 Oximetry Oxygen Devices in Use Now: None Appearance: Elderly male lying in bed in NAD. Eyes: No Scleral Icterus Ears/Nose/Mouth/Throat: Mucous Membranes Moist Neck: Trachea Midline Respiratory: Symmetrical Chest Expansion and Respiratory Effort, Clear to Auscultation Cardiovascular: RRR - Normal S1 and S2 Abdominal: - - Soft, NT, +ascites, BS+ Neurological: - - Responsive to pain only Result Diagrams: 07/17/17 02:44 07/17/17 11:50 Assess/Plan/Problems-Billing Assessment: Mr. Art is a 72yo M with PMH of ETOH abuse, liver cirrhosis, CKD stage 3, Afib, GERD, SNF resident, who presented to ED for altered MS, found to have hepatic encephalopathy. - Patient Problems (1) Hepatic encephalopathy Comment: - Ammonia on admission was 216 (his highest value) - will place NGT and change lactulose from enema to NGT and add rifaximin. Monitor ammonia. - Precipitating factor not clear, assuming he was compliant with lactulose at [facility] - no signs of GI bleed, no abdominal tenderness, VSS, minimal leukocytosis. Will request paracentesis to r/o SBP. - UA is abnormal but culture has no report of growth so far. - Continue diuretics via NGT. - Continue Levofloxacin for now. (2) CKD (chronic kidney disease) Comment: - Renal function is stable. (3) DVT prophylaxis Comment: - SQ heparin. (4) DNR (do not resuscitate) Status and Disposition: Inpatient.
[2017-07-17] MEDS ORDERED: Spironolactone TAB* 25 MG NG TUBE SCH (16:00)
[2017-07-17] MEDS ORDERED: Lidocaine 1% INJ* 10 MG/ML 30 ML SDV ONE (16:04)
[2017-07-17] MEDS: cefTRIAXone(*) 2 GM in NS 0.9% 100 ML* 100 ML IVPB SCH (18:17)
[2017-07-18] MEDS: Heparin VIAL(*) 5000 UNITS/ML VIAL (FIVE THOUSAND) SUBCUT SCH ×3 (05:26→21:43)
[2017-07-18 06:49] LABS: ABS Basophils 0.1 10^3/ul (0-0.2); ABS Eosinophils 0.4 10^3/ul (0-0.6); ABS Lymphocytes 1.7 10^3/ul (1.0-4.8); ABS Monocytes 0.5 10^3/ul (0-0.8); ABS Neutrophils 5.5 10^3/ul (1.5-7.7); ABS Nucleated RBC 0 10^3/ul; Eosinophil % 4.5 % (0-6); Hematocrit 33 % (42-52); Hemoglobin 11.2 g/dl (14.0-18.0); Lymphocyte % 20.9 % (25-47); Mean Corpuscular HGB Conc 34 g/dl (31-36); Mean Corpuscular Hemoglobin 30 pg (27-31); Mean Corpuscular Volume 88 fL (80-94); Mean Platelet Volume 7.8 um3 (7.4-10.4); Nucleated Red Blood Cells % 0; Platelet Count 187 10^3/ul (150-450); Red Cell Distribution Width 15 % (10.5-15); White Blood Count 8.2 10^3/ul (3.5-10.8)
[2017-07-18 07:16] LABS: EGFR Non-African American 22.9 (>60)
[2017-07-18] MEDS: RiFAXimin* 550 MG TAB FEED TUBE SCH (08:07)
[2017-07-18] MEDS: Furosemide TAB* 20 MG NG TUBE SCH (08:07)
[2017-07-18] MEDS: Vitamin B Complex TAB FEED TUBE SCH (08:08)
--- NOTE | 2017-07-18 09:02 | OP ---
CC: Marisol Franco * DATE OF OPERATION: 07/17/17 - ROOM #ICU-10 DATE OF : 41 SURGEON: Freddy Mondragon MD BODY DIE MAKER: None. ANESTHESIOLOGIST: None. PRE-OP DIAGNOSIS: Ascites. POST-OP DIAGNOSIS: Ascites. OPERATIVE PROCEDURE: Paracentesis. INDICATIONS: The patient is a 72-year-old male who was admitted by the hospitalist service with hepatic encephalopathy and increasing ascites. I was consulted by the hospitalist service to perform paracentesis. The patient is well known to me from previous paracentesis, and he is a little confused at that time but he is understanding and agreeable to the procedure and telephone contact with his , she is also agreeable to the procedure. On examination, he has large abdomen consistent with a large amount of ascites. He is nontender. DESCRIPTION OF PROCEDURE: Ultrasound was performed and there was an excellent pocket of fluid on the left side of the abdomen in the upper quadrant. This was chosen as the site for the paracentesis and therefore, the area was prepped with antiseptic and draped in a sterile fashion. Local infiltrative anesthesia was administered. Skinny needle was used to identify the fluid pocket and then paracentesis needle was inserted. The catheter was attached to the suction bottles and a total of about 12 L of ascites fluid was forthcoming. Specimens were collected for studies as ordered by Dr. Boss. After the drainage ceased , the catheter was removed without incident. Bandage was placed. He tolerated this well and I will be happy to see him back again in the future should the need arise. [id number]/CPS #: [id number] MTDD
[2017-07-18] MEDS ORDERED: Furosemide TAB* 20 MG PO SCH (09:15)
--- NOTE | 2017-07-18 09:15 | PN ---
Subjective Date of Service: 07/18/17 Interval History: HOSPITALIST PROGRESS NOTE Patient seen and examined at bedside. He's much more awake today, does not remember how he got to the hospital. Asking for food. Denies pain. Family History: Unchanged from Admission Social History: Unchanged from Admission Past Medical History: Unchanged from Admission Objective Active Medications: Furosemide (Lasix Tab*) 20 mg NG TUBE DAILY [facility] Last Admin: 07/18/17 08:07 Dose: 20 mg Heparin Sodium (Porcine) (Heparin Vial(*)) 5,000 units SUBCUT Q8HR [facility] Last Admin: 07/18/17 05:26 Dose: 5,000 units Ceftriaxone Sodium 2 gm/ (Sodium Chloride) 100 mls @ 200 mls/hr IVPB Q24H [facility] Last Admin: 07/17/17 18:17 Dose: 200 mls/hr Lactulose (Lactulose*) 30 ml NG TUBE QID [facility] Last Admin: 07/18/17 08:07 Dose: 30 ml Ondansetron HCl (Zofran Inj*) 4 mg IV Q4H PRN PRN Reason: NAUSEA/VOMITING Rifaximin (Xifaxan*) 550 mg FEED TUBE BID [facility] Last Admin: 07/18/17 08:07 Dose: 550 mg Spironolactone (Aldactone Tab*) 50 mg NG TUBE DAILY@1600 [facility] Last Admin: 07/17/17 17:06 Dose: 50 mg Vitamin B Complex/Vitamin E (B Complex-50*) 1 tab FEED TUBE DAILY [facility] Last Admin: 07/18/17 08:08 Dose: 1 tab Vital Signs - 8 hr 07/18/17 07/18/17 07/18/17 01:30 02:00 02:01 Temperature 98.1 F 98.2 F 98.2 F Pulse Rate 89 90 87 Respiratory 20 15 17 Rate Blood Pressure 101/65 92/60 (mmHg) O2 Sat by Pulse 97 99 98 Oximetry 07/18/17 07/18/17 07/18/17 02:30 03:00 03:01 Temperature 98.4 F 98.4 F 98.4 F Pulse Rate 90 95 92 Respiratory 13 15 17 Rate Blood Pressure 105/62 108/70 (mmHg) O2 Sat by Pulse 96 95 98 Oximetry 07/18/17 07/18/17 07/18/17 03:30 04:00 04:01 Temperature 98.4 F 98.6 F 98.6 F Pulse Rate 95 95 92 Respiratory 17 13 12 Rate Blood Pressure 102/62 103/62 (mmHg) O2 Sat by Pulse 100 100 99 Oximetry 07/18/17 07/18/17 07/18/17 04:30 05:00 05:01 Temperature 98.6 F 98.6 F 98.6 F Pulse Rate 87 94 93 Respiratory 16 19 12 Rate Blood Pressure 111/72 105/61 (mmHg) O2 Sat by Pulse 97 98 96 Oximetry 07/18/17 07/18/17 07/18/17 05:20 05:32 06:00 Temperature 98.4 F 98.2 F Pulse Rate 90 95 Respiratory 19 17 15 Rate Blood Pressure 103/67 (mmHg) O2 Sat by Pulse 99 86 Oximetry 07/18/17 07/18/17 07/18/17 06:01 06:30 07:00 Temperature 98.2 F 98.1 F 97.7 F Pulse Rate 93 94 93 Respiratory 18 17 16 Rate Blood Pressure 103/68 109/76 108/75 (mmHg) O2 Sat by Pulse 100 99 100 Oximetry 07/18/17 07/18/17 07/18/17 07:30 08:00 08:01 Temperature 97.7 F 97.7 F 97.7 F Pulse Rate Respiratory 15 12 13 Rate Blood Pressure 108/75 98/61 (mmHg) O2 Sat by Pulse Oximetry Oxygen Devices in Use Now: None Appearance: Elderly male lying in bed in NAD. Eyes: No Scleral Icterus Ears/Nose/Mouth/Throat: Mucous Membranes Moist Neck: Trachea Midline Respiratory: Symmetrical Chest Expansion and Respiratory Effort, Clear to Auscultation Cardiovascular: RRR - Normal S1 and S2 Abdominal: - - Soft, mild ascites, NT, BS+ Skin: - - Multiple bruises in different stages of healing on upper and lower extremities Neurological: - - AAOx1 (self only), SAMUELS Result Diagrams: 07/18/17 06:39 07/18/17 06:39 Assess/Plan/Problems-Billing Assessment: Mr. Art is a 72yo M with PMH of ETOH abuse, liver cirrhosis, CKD stage 3, Afib, GERD, SNF resident, who presented to ED for altered MS, found to have hepatic encephalopathy. - Patient Problems (1) Hepatic encephalopathy Comment: - Ammonia on admission was 216 (his highest value) and now down to 69. Awake, alert, oriented to self - change Lactulose and Rifaximin to PO. - Precipitating factor not clear, assuming he was compliant with lactulose at [facility] - no signs of GI bleed, no abdominal tenderness, VSS, minimal leukocytosis. Paracentesis shows >1000 WBC, but with lymphocytic predominance - continue Ceftriaxone for now and await ID consult. - UA is abnormal but culture has no report of growth so far. - Continue diuretics. - S/p paracentesis 07/17/[address] Mondragon with drainage of 12 liters. (2) CKD (chronic kidney disease) Comment: - Renal function is stable. (3) DVT prophylaxis Comment: - SQ heparin. (4) DNR (do not resuscitate) Status and Disposition: Inpatient. Transfer to medical floor.
--- NOTE | 2017-07-18 12:36 | CONS ---
CONSULTATION REPORT: DATE OF CONSULT: 07/18/17. REQUESTING PHYSICIAN: Dr. Boss. CONSULTING SERVICE: Infectious Disease. REASON FOR CONSULTATION: Encephalopathy. IMPRESSION: 1. Encephalopathy, brought to the hospital from [facility] with being unarousable in the setting of cirrhosis and a history of hepatic encephalopathy , concerned for spontaneous bacterial peritonitis. He has had a dose of Levaquin. His workup here is included urinalysis that showed blood and leukocyte esterase. He could have cystitis or prostatitis. He had a paracentesis, which showed 1100 white cells, predominantly lymphocytes. He does not strictly meet the criteria for spontaneous bacterial peritonitis, that was still possibility. He could have bacteremia from another source, less likely with negative blood cultures to date. He does not have evidence of soft tissue or musculoskeletal infection on exam today. His mental status is much improved after 24 hours, so I think it less likely will end up being spontaneous bacterial peritonitis or other infection that is driving his mental status changes. 2. Cirrhosis. 3. Neuropathy. 4. Hyponatremia. 5. Gastroesophageal reflux disease. 6. Sepsis was present on admission and resolved. RECOMMENDATIONS: We will continue the ceftriaxone until the blood cultures come back negative at 48 hours. Assuming that, I would stop the antibiotics. HISTORY OF PRESENT ILLNESS: This is a 72-year-old man with cirrhosis, brought from [facility], who was found to be unresponsive that persisted while he was here. He has not had fever since being here and I do not find it in the records from [facility] either. He has been intermittently hypotensive here and tachycardia. He does not recall any pain, headaches, sinus symptoms, neck troubles, cough, trouble breathing, abdominal pain or distention out of the ordinary for him, any skin or soft tissue changes other than bruises and tears, and no trouble urinating, no diarrhea. He got a dose of Levaquin in the emergency room on 07/17/17. He had a paracentesis last night with the results as above. The cultures of that are negative. Urinalysis was slightly abnormal. Urine cultures are pending and blood cultures are negative 24 hours. This morning, he is sitting up, eating breakfast, answering questions appropriately, denies any pain or urine difficulties currently. PAST MEDICAL HISTORY: 1. Cirrhosis due to alcohol abuse. 2. Chronic kidney disease. 3. Atrial fibrillation. 4. Peripheral neuropathy. 5. Gastroesophageal reflux disease. MEDICATIONS: 1. Levaquin 750 mg daily on 07/17/17. 2. Ceftriaxone was started last night. 3. Lasix. 4. Heparin subcutaneous injection. 5. Lactulose. 6. Rifaximin. 7. Spironolactone. 8. Vitamin B. ALLERGIES: DOXYCYCLINE, DEMEROL, FLAGYL, and TRAZODONE. FAMILY HISTORY: No recurrent infections. Mother of lymphoma. Father from colon cancer. SOCIAL HISTORY: He lives at [facility]. He is a nonsmoker. REVIEW OF SYSTEMS: Negative except as noted above to 14-point review of systems. PHYSICAL EXAM: Vital Signs: Temperature is 36, heart rate is 90, respiratory rate 12, blood pressure 90/63, oxygen saturation 99% on room air. In general, he is awake, not in distress. Neurologic: He is oriented x3, follows all commands. Moves all extremities. Answers questions appropriately for the most part other than the date. HEENT: There is no conjunctival hemorrhage. Oropharynx without lesions. Neck: Supple without mass. Lymph Nodes: There is no cervical, supraclavicular, inguinal, axillary or epitrochlear lymphadenopathy. Heart has a regular rate and rhythm without murmurs, rubs or gallops. Lungs are clear to auscultation bilaterally. Abdomen: Soft, nontender, nondistended. There are bowel sounds present. Skin: There is no rash or splinter hemorrhages. Musculoskeletal: There is no spine tenderness to palpation or joint synovitis. There is also some ecchymosis on forearms and the tip of the right second toe. DIAGNOSTIC STUDIES/LAB DATA: White blood cell count 8, hemoglobin 11, platelets 187. Creatinine is 2.7. C-reactive protein 45. Please see impression and recommendations as outlined above. Thank you for asking me to see Mr. Art in consultation. [id number]/[facility] #: [id number] JARAD
[2017-07-18] MEDS: Spironolactone TAB* 25 MG PO SCH (17:54)
[2017-07-18] MEDS: cefTRIAXone(*) 2 GM in NS 0.9% 100 ML* 100 ML IVPB SCH (17:55)
[2017-07-18] MEDS: RiFAXimin* 550 MG TAB PO SCH (20:31)
[2017-07-19] MEDS: Heparin VIAL(*) 5000 UNITS/ML VIAL (FIVE THOUSAND) SUBCUT SCH ×3 (05:12→21:00)
[2017-07-19 07:08] LABS: EGFR Non-African American 25.1 (>60)
[2017-07-19] MEDS ORDERED: Levofloxacin 750 MG IVPREMIX(* 750 MG/150 ML BAG IVPB SCH (08:00)
--- NOTE | 2017-07-19 08:47 | PN ---
Subjective Date of Service: 07/19/17 Interval History: Has no complaints, denies any pain, WILLIAM, cough/SOB, N/V AOx3 this AM but still confused about details of his hospital stay- ie asking when he will have his procedure (paracentesis) Family History: Unchanged from Admission Social History: Unchanged from Admission Past Medical History: Unchanged from Admission Objective Active Medications: Furosemide (Lasix Tab*) 20 mg PO DAILY [facility] Heparin Sodium (Porcine) (Heparin Vial(*)) 5,000 units SUBCUT Q8HR [facility] Last Admin: 07/19/17 05:12 Dose: 5,000 units Lactulose (Lactulose*) 30 ml PO QID [facility] Last Admin: 07/18/17 20:31 Dose: 30 ml Ondansetron HCl (Zofran Inj*) 4 mg IV Q4H PRN PRN Reason: NAUSEA/VOMITING Rifaximin (Xifaxan*) 550 mg PO BID [facility] Last Admin: 07/18/17 20:31 Dose: 550 mg Spironolactone (Aldactone Tab*) 50 mg PO DAILY@1600 [facility] Last Admin: 07/18/17 17:54 Dose: 50 mg Vitamin B Complex/Vitamin E (B Complex-50*) 1 tab PO DAILY [facility] Vital Signs - 8 hr 07/19/17 07/19/17 02:56 03:00 Temperature 98.7 F Pulse Rate 96 Respiratory 16 Rate Blood Pressure 95/61 102/56 (mmHg) O2 Sat by Pulse 96 Oximetry Oxygen Devices in Use Now: None Appearance: older than stated age, NAD Eyes: No Scleral Icterus, PERRLA Ears/Nose/Mouth/Throat: Clear Oropharnyx, Mucous Membranes Moist Neck: NL Appearance and Movements; NL JVP, Trachea Midline Respiratory: Symmetrical Chest Expansion and Respiratory Effort, Clear to Auscultation Cardiovascular: RRR Abdominal: NL Sounds; No Tenderness; No Distention, No Hepatosplenomegaly, - - para site c/d/i Lymphatic: No Cervical Adenopathy Extremities: No Edema, No Clubbing, Cyanosis Neurological: Alert and Oriented x 3, - - oriented fully knows he is at [facility] and the year but events of hospital stay are still fuzzy Result Diagrams: 07/18/17 06:39 07/19/17 06:36 Additional Lab and Data: Lab Results 07/17/17 07/17/17 07/17/17 Range/Units 02:44 02:44 02:44 WBC 12.6 H (3.5-10.8) 10^3/ul RBC 3.69 L (4.0-5.4) 10^6/ul Hgb 11.0 L (14.0-18.0) g/dl Hct 33 L (42-52) % MCV 88 (80-94) fL MCH 30 (27-31) pg MCHC 34 (31-36) g/dl RDW 15 (10.5-15) % Plt Count 211 (150-450) 10^3/ul MPV 7.9 (7.4-10.4) um3 Neut % (Auto) 77.8 (38-83) % Lymph % (Auto) 14.0 L (25-47) % [place] % (Auto) 7.0 (0-7) % Eos % (Auto) 0.4 (0-6) % Baso % (Auto) 0.8 (0-2) % Absolute Neuts (auto) 9.8 H (1.5-7.7) 10^3/ul Absolute Lymphs (auto) 1.8 (1.0-4.8) 10^3/ul Absolute Monos (auto) 0.9 H (0-0.8) 10^3/ul Absolute Eos (auto) 0.1 (0-0.6) 10^3/ul Absolute Basos (auto) 0.1 (0-0.2) 10^3/ul Absolute Nucleated RBC 0 10^3/ul Nucleated RBC % 0 INR (Anticoag Therapy) 1.08 H (0.77-1.02) APTT 34.4 (26.0-36.3) seconds Sodium 130 L (139-145) mmol/L Potassium 5.1 H (3.5-5.0) mmol/L Chloride 100 L (101-111) mmol/L Carbon Dioxide 19 L (22-32) mmol/L Anion Gap 11 (2-11) mmol/L BUN 69 H (6-24) mg/dL Creatinine 2.89 H (0.67-1.17) mg/dL Est GFR ( Amer) 27.6 (>60) Est GFR (Non-Af Amer) 21.5 (>60) BUN/Creatinine Ratio 23.9 H (8-20) Glucose 129 H (70-100) mg/dL Lactic Acid (0.5-2.0) mmol/L Calcium 8.7 (8.6-10.3) mg/dL Magnesium 2.4 (1.9-2.7) mg/dL Total Bilirubin 0.90 (0.2-1.0) mg/dL AST 44 H (13-39) U/L ALT 11 (7-52) U/L Alkaline Phosphatase 207 H (34-104) U/L Ammonia (16-53) mcmol/L Total Creatine Kinase 38 (10-223) U/L CK-MB (CK-2) 4.1 (0.6-6.3) ng/mL Troponin I 0.04 H* (<0.04) ng/mL C-Reactive Protein 45.19 H (< 5.00) mg/L B-Natriuretic Peptide ( - 100) pg/mL Total Protein 6.8 (6.4-8.9) g/dL Albumin 2.5 L (3.2-5.2) g/dL Globulin 4.3 H (2-4) g/dL Albumin/Globulin Ratio 0.6 L (1-3) Lipase 51 (11.0-82.0) U/L TSH 1.83 (0.34-5.60) mcIU/mL Urine Color Urine Appearance Urine pH (5-9) Ur Specific [place] (1.010-1.030) Urine Protein (Negative) Urine Ketones (Negative) Urine Blood (Negative) Urine Nitrate (Negative) Urine Bilirubin (Negative) Urine Urobilinogen (Negative) Ur Leukocyte Esterase (Negative) Urine WBC (Auto) (Absent) Urine RBC (Auto) (Absent) Amorphous Crystals (Absent) Urine Glucose (Negative) Urine Ascorbic Acid (Negative) Acetaminophen < 15 mcg/mL Serum Alcohol < 10 (<10) mg/dL 07/17/17 07/17/17 07/17/17 Range/Units 02:44 02:44 03:23 WBC (3.5-10.8) 10^3/ul RBC (4.0-5.4) 10^6/ul Hgb (14.0-18.0) g/dl Hct (42-52) % MCV (80-94) fL MCH (27-31) pg MCHC (31-36) g/dl RDW (10.5-15) % Plt Count (150-450) 10^3/ul MPV (7.4-10.4) um3 Neut % (Auto) (38-83) % Lymph % (Auto) (25-47) % [place] % (Auto) (0-7) % Eos % (Auto) (0-6) % Baso % (Auto) (0-2) % Absolute Neuts (auto) (1.5-7.7) 10^3/ul Absolute Lymphs (auto) (1.0-4.8) 10^3/ul Absolute Monos (auto) (0-0.8) 10^3/ul Absolute Eos (auto) (0-0.6) 10^3/ul Absolute Basos (auto) (0-0.2) 10^3/ul Absolute Nucleated RBC 10^3/ul Nucleated RBC % INR (Anticoag Therapy) (0.77-1.02) APTT (26.0-36.3) seconds Sodium (139-145) mmol/L Potassium (3.5-5.0) mmol/L Chloride (101-111) mmol/L Carbon Dioxide (22-32) mmol/L Anion Gap (2-11) mmol/L BUN (6-24) mg/dL Creatinine (0.67-1.17) mg/dL Est GFR ( Amer) (>60) Est GFR (Non-Af Amer) (>60) BUN/Creatinine Ratio (8-20) Glucose (70-100) mg/dL Lactic Acid 2.0 (0.5-2.0) mmol/L Calcium (8.6-10.3) mg/dL Magnesium (1.9-2.7) mg/dL Total Bilirubin (0.2-1.0) mg/dL AST (13-39) U/L ALT (7-52) U/L Alkaline Phosphatase (34-104) U/L Ammonia 216 H (16-53) mcmol/L Total Creatine Kinase (10-223) U/L CK-MB (CK-2) (0.6-6.3) ng/mL Troponin I (<0.04) ng/mL C-Reactive Protein (< 5.00) mg/L B-Natriuretic Peptide 57 ( - 100) pg/mL Total Protein (6.4-8.9) g/dL Albumin (3.2-5.2) g/dL Globulin (2-4) g/dL Albumin/Globulin Ratio (1-3) Lipase (11.0-82.0) U/L TSH (0.34-5.60) mcIU/mL Urine Color Yellow Urine Appearance Cloudy Urine pH 5 (5-9) Ur Specific [place] 1.016 (1.010-1.030) Urine Protein 2+(100 mg/dl) A (Negative) Urine Ketones Negative (Negative) Urine Blood 3+ A (Negative) Urine Nitrate Negative (Negative) Urine Bilirubin Negative (Negative) Urine Urobilinogen Negative (Negative) Ur Leukocyte Esterase 3+ A (Negative) Urine WBC (Auto) Trace(0-5/hpf) (Absent) Urine RBC (Auto) 3+(>10/hpf) A (Absent) Amorphous Crystals Present A (Absent) Urine Glucose Negative (Negative) Urine Ascorbic Acid (Negative) Acetaminophen mcg/mL Serum Alcohol (<10) mg/dL Microbiology and Other Data: Microbiology 07/17/17 18:10 Gram Stain - Final Ascites Fluid 07/17/17 05:50 Nasal Screen MRSA (PCR)(CARIE) - Final Nasal Mrsa Not Detected Assess/Plan/Problems-Billing Assessment: Mr. Art is a 72yo M with PMH of ETOH abuse, liver cirrhosis with multiple stays this year for HE and UTIs, CKD stage 3, Afib, GERD, SNF resident, who presented to ED for altered MS, found to have hepatic encephalopathy - Patient Problems (1) Hepatic encephalopathy Comment: - Ammonia on admission was 216 (his highest value) and now down to 69. Awake, alert, oriented x 3 - change Lactulose and Rifaximin to PO. Precipitating factor not certain, potentiallay hyperkalemia now resolved. Paracentesis shows >1000 WBC, but with lymphocytic predominance - d/c abx - UA is abnormal but culture has no report of growth so far. Presented with terrazas which was changed in ED - Continue diuretics. (2) Alcoholic cirrhosis Comment: Continue lactulose (currently QID from TID) but titrate to BMs ~3 soft a day. Paracentesis w/12 Liters off 5/10 c/w spironolactone and lasix (3) CKD (chronic kidney disease) Current Visit: Yes Status: Acute Code(s): N18.9 - CHRONIC KIDNEY DISEASE, UNSPECIFIED SNOMED Code(s): 788956871 Comment: - Renal function is stable. Status and Disposition: Inpatient. Transfer to medical floor. Plan dc tomorrow if stable off abx and oob today
[2017-07-19] MEDS: RiFAXimin* 550 MG TAB PO SCH ×2 (10:10→21:00)
[2017-07-19] MEDS: Vitamin B Complex TAB PO SCH (10:10)
[2017-07-19] MEDS: Spironolactone TAB* 25 MG PO SCH (17:56)
[2017-07-20] MEDS: Heparin VIAL(*) 5000 UNITS/ML VIAL (FIVE THOUSAND) SUBCUT SCH ×3 (05:46→21:36)
[2017-07-20] MEDS: RiFAXimin* 550 MG TAB PO SCH ×2 (09:04→20:46)
[2017-07-20] MEDS: Vitamin B Complex TAB PO SCH (09:04)
[2017-07-20] MEDS: Acetaminophen TAB* 325 MG PO PRN (13:11)
[2017-07-20] MEDS: Spironolactone TAB* 25 MG PO SCH (16:37)
--- NOTE | 2017-07-20 22:19 | DS ---
DISCHARGE SUMMARY: DATE OF ADMISSION: 07/17/17 DATE OF DISCHARGE: 07/21/17 PRIMARY CARE PROVIDER: Marisol Franco, currently is Claudine Puentes NP. PRIMARY DIAGNOSIS: Hepatic encephalopathy. SECONDARY DIAGNOSES: Include: 1. Cirrhosis secondary to chronic alcoholism. 2. Atrial fibrillation. 3. Chronic kidney disease. 4. Peripheral neuropathy. MEDICATIONS: On discharge include: 1. Protonix 40 mg in the morning. 2. Lactulose 30 mL every 4 hours, titrate to 3 bowel movements per day. 3. Menthol topically twice daily to the needed areas. 4. Vitamin B complex 1 tab daily. 5. Multivitamin 1 tab daily. 6. Aspirin 81 mg daily. 7. Pro-Stat Max liquids 50 mL every 4 hours. 8. Spironolactone 25 mg daily. 9. Rifaximin 550 mg twice daily. Please note in addition of rifaximin, decreasing dose of spironolactone from 50 to 25 mg daily, discontinuation of Lasix, Lyrica, zolpidem, guaifenesin, and Tessalon Perles. PROCEDURES PERFORMED DURING HOSPITAL STAY: Paracentesis with removal of 12 L fluid performed on 07/17/17. PERTINENT LABORATORY STUDIES: Peritoneal fluid with 6 neutrophils, serum ammonia on presentation 216, creatinine on discharge 2.5 on 07/19/17. Microbiology: No growth from peritoneal fluid. Urine culture negative and 2 blood culture specimens negative as of 72 hours. HISTORY OF PRESENT ILLNESS AND HOSPITAL COURSE: This is a 70-year-old man with past medical history as outlined in the history of present illness on the day of admission including recurrent hepatic encephalopathy as well as several admissions with urinary tract infections, the most recent in June of this year with enterococcus, presented to the hospital with altered mental status. I suspect that the patient is suffering from hepatic encephalopathy, although no discrete etiology was identified. It is noted that his presenting potassium was 5.1. Hyperkalemia is known to be an etiology of hepatic encephalopathy. No infectious sources were identified, although the patient is noted to be slightly more uremic than baseline with the BUN of 69 on presentation, was as low as 30s in May, but elevated in the 50s in June. The patient's lactulose was titrated to achieve at least 3 bowel movements per day and his mental status improved for the 48 hours prior to his discharge. He was alert and oriented x3 to himself, knew he was in the hospital at [facility] and the year. He was able to name the president, although was somewhat confused around the circumstances for his hospital stay and knew he had received a paracentesis, which he thought was the ultimate reason for his hospitalization. His blood pressure predominantly ran in the systolic range of 90s with occasional checks and systolic range of 80s. For this reason, he is being discharged without Lasix and a decreased dose of spironolactone from 50 to 25 mg daily. Additionally, polypharmacy is a potential contributor to his hepatic encephalopathy. For this reason, his Lyrica as well his Ambien were discontinued. Can consider reintroduction if necessary. With a decrease in spironolactone and Lasix dosing, it is possible that his ascites accumulates more rapidly, although it is noted that he had 12 L removed at this time and his medications are arguably providing little benefit. DISCHARGE INSTRUCTIONS: At followup, please; 1. Evaluate for continued efficacy of lactulose, titrate for 3 to 4 bowel movements per day. 2. Consider reintroduction of Lasix and spironolactone as peritoneal fluid reaccumulates more rapidly than previously. 3. Consider reintroduction of Lyrica if peripheral neuropathy becomes a problem. 4. The patient had no complaints of pain during the course of his hospital stay. 5. There are no pending tests at the time for discharge. Reasons to return to the hospital including, but not limited to recurrent or worsening symptoms including worsening mental status/encephalopathy, chest pain , shortness of breath, rapid reaccumulation of abdominal ascites with and without abdominal pain, nausea, vomiting, lightheadedness, loss of consciousness or near loss of consciousness should be considered. TIME SPENT: Greater than 45 minutes were spent on the discharge of this patient. The patient was prepared to be discharged on 07/20/17 in the evening; however, [facility] at [facility] time secondary to insufficient staffing. The patient's discharge prepared the night before and he is prepared for discharge for the following day, 07/21/17. [id number]/[facility] #: [id number] [facility]PITALYakov
[2017-07-21] MEDS: Acetaminophen TAB* 325 MG PO PRN (05:12)
[2017-07-21] MEDS: Heparin VIAL(*) 5000 UNITS/ML VIAL (FIVE THOUSAND) SUBCUT SCH (05:12)
[2017-07-21 07:37] VITALS: BP 102/57
[2017-07-21] MEDS: Vitamin B Complex TAB PO SCH (08:25)
[2017-07-21] MEDS: RiFAXimin* 550 MG TAB PO SCH (08:25)
== END 2017-07-21 10:15 | DRG 872 ==
LOC: ED 02:12 → ICU 03:40 → MED 07-18 13:12
PROVIDERS: ADMIT Pediatrics; ATTEND Internal Medicine
PROC: 0W9G3ZZ Drainage of Peritoneal Cavity, Percutaneous Approach (ICD-10-PCS; principal; 2017-07-17)
DX: A41.9 Sepsis, unspecified organism (principal); E87.1 Hypo-osmolality and hyponatremia; K72.90 Hepatic failure, unspecified without coma; K70.31 Alcoholic cirrhosis of liver with ascites; F10.20 Alcohol dependence, uncomplicated; Y90.0 Blood alcohol level of less than 20 mg/100 ml; I48.91 Unspecified atrial fibrillation; N18.3 Chronic kidney disease, stage 3 (moderate); K21.9 Gastro-esophageal reflux disease without esophagitis; Z66 Do not resuscitate; G62.9 Polyneuropathy, unspecified; Z79.82 Long term (current) use of aspirin; Z79.899 Other long term (current) drug therapy; Z88.8 Allergy status to other drugs, medicaments and biological substances; Z80.7 Family history of other malignant neoplasms of lymphoid, hematopoietic and related tissues; Z80.0 Family history of malignant neoplasm of digestive organs
CPT/HCPCS: 36415; 36600; 70450; 71045; 74018; 80048; 80053; 80320; 80329; 81003; 81015; 82042; 82140; 82550; 82553; 82803; 83605; 83615; 83690; 83735; 83880; 84157; 84443; 84484; 85025; 85610; 85730; 86140; 87040; 87070; 87086; 87205; 87641; 89051; 93005; 99285; A9270-GY; G0480; J0696; J1644

== ENCOUNTER → 2017-08-12 10:44 | Day surgery (SDC) | payer MEDICARE ==
--- NOTE | 2017-08-13 06:15 | OP ---
DATE OF OPERATION: 08/12/17 - [facility] DATE OF : 41 SURGEON: Freddy Mondragon MD INSIDE BARREL POLISHER: None. ANESTHESIOLOGIST: None. PRE-OP DIAGNOSIS: Cirrhosis with ascites. POST-OP DIAGNOSIS: Cirrhosis with ascites. OPERATIVE PROCEDURE: Paracentesis under sono. INDICATIONS: The patient is a 72-year-old male with multiple previous paracenteses for chronic recurrent cirrhotic ascites. He presents back now about 3 weeks after his last visit with increasing abdominal pain and bloating and pressure. Examination revealed some markedly distended abdomen consistent with a large amount of ascites. After discussion with the patient, it was decided that sonographically- guided paracentesis will be carried out. DESCRIPTION OF PROCEDURE: Therefore, ultrasound was carried out on both sides. A bedside ultrasound was utilized and moderately large pocket was identified in the left upper quadrant. This was about 3 cm from the abdominal wall and the site was marked. The area was prepped and draped and then local anesthetic was administered. 1% plain lidocaine and Skinny needle used to identify the ascitic fluid and then, the paracentesis catheter was passed and fluid was forthcoming. Suction bottle was used to remove approximately 8 L of yellow fluid. He tolerated this well. Bandage was placed after the catheter was removed. He was discharged with instructions. Will be happy to see him back in the future should the need arise. [id number]/[facility] #: [id number] MTDD
== END | disposition home or self-care (01) ==
LOC: OR 10:44
PROVIDERS: ATTEND Surgery
DX: K70.31 Alcoholic cirrhosis of liver with ascites (principal); I48.0 Paroxysmal atrial fibrillation; N17.9 Acute kidney failure, unspecified; J45.909 Unspecified asthma, uncomplicated; R41.82 Altered mental status, unspecified; E87.1 Hypo-osmolality and hyponatremia; Z91.19 Patient's noncompliance with other medical treatment and regimen; F10.188 Alcohol abuse with other alcohol-induced disorder; K72.90 Hepatic failure, unspecified without coma
CPT/HCPCS: 49082